=== PATIENT | female | born 1960 | race Caucasian/White ===

== ENCOUNTER 2016-08-11 12:27 | Emergency (ER) | payer BC ==
[2016-08-11] MEDS ORDERED: ONDANSETRON 4 MG/2 ML VIAL IVP STA (12:57)
[2016-08-11] MEDS ORDERED: SODIUM CHLORIDE 0.9% 1,000 ML IV STA (12:57)
[2016-08-11 13:24] LABS: Basophils % (A) 0 %; CH 31.7; Eosinophils % (A) 1 %; HCT 39.8 % (34.0-46.0); Luc % (Auto) 1; Lymphocytes # (A) 2.1 k/uL (1.0-4.8); Lymphocytes % (A) 23 %; MCH 30.6 pg (25.0-35.0); MCHC 32.8 g/dL (31.0-37.0); MCV 93.4 fL (80.0-100.0); Mean Platelet Volume 7.1; Monocytes # (A) 0.4 k/uL (0-1.0); Monocytes % (A) 5 %; Neutrophils # (A) 6.2 k/uL (1.3-7.7); Neutrophils % (A) 70 %; RBC 4.26 m/uL (3.80-5.40); RDW 13.9 % (11.5-15.5); WBC 8.9 k/uL (3.8-10.6); WBC (Perox) 8.69
[2016-08-11 13:33] LABS: ALT 20 U/L (9-52); AST 17 U/L (14-36); Alkaline Phosphatase 65 U/L (38-126); Amylase 48 U/L (30-110); Anion Gap 8 mmol/L; Blood Urea Nitrogen 10 mg/dL (7-17); Carbon Dioxide 24 mmol/L (22-30); Chloride 105 mmol/L (98-107); Glucose 100 mg/dL (74-99); Non-African American GFR(MDRD) >60 (>60 ml/min/1.73 sqM); Sodium 137 mmol/L (137-145); Total Bilirubin 0.6 mg/dL (0.2-1.3); Total Protein 6.6 g/dL (6.3-8.2)
[2016-08-11 13:34] LABS: Appearance,Urine Cloudy (Clear); Bilirubin,Urine Negative (Negative); Glucose,Urine (UA) Negative (Negative); Ketones,Urine 1+ (Negative); Leukocyte Esterase,Urine Large (Negative); Mucus,Urine Moderate /hpf; Nitrite,Urine Negative (Negative); PH, Urine 5.5 (5.0-8.0); Particle Count 10647; Protein,Urine Negative (Negative); Specific Gravity,Urine 1.021 (1.001-1.035); Squamous Epithelial Cell,Urine 8 /hpf (0-4); UA Billing (MACRO vs. MICRO) MICRO; Urobilinogen,Urine <2.0 mg/dL (<2.0); WBC,Urine 9 /hpf (0-5)
--- NOTE | 2016-08-11 13:58 | ED ---
Abdominal Pain HPI - General Chief Complaint: Abdominal Pain Stated Complaint: Abdominal Pain/Vomiting Time Seen by Provider: 08/11/16 12:44 Source: patient, RN notes reviewed Mode of arrival: ambulatory Limitations: no limitations - History of Present Illness Initial Comments: 56-year-old female presents emergency Department chief complaint of abdominal pain. Patient states that she's been having some discomfort lasted 4 days. Patient was seen at yesterday in which she lab work, ultrasound. Patient was told that she had a ruptured ovarian cyst that she had some fluid on pelvic region. Patient states pain is much better today though she had some nausea and vomiting this morning. Patient was sent home with pain medication which she took yesterday nothing today. Patient denies fever, chills , dysuria, hematuria, vaginal bleeding vaginal discharge. Denies any hematemesis, coffee-ground emesis, melena or hematochezia. Patient had no prior abdominal surgeries. - Related Data Home Medications Medication Instructions Recorded Confirmed traMADol HCL [Ultram] 50 mg PO Q4HR PRN 08/11/16 08/11/16 Previous Rx's Medication Instructions Recorded Ondansetron Odt [Zofran Odt] 4 mg PO Q8HR PRN #10 tab 08/11/16 Allergies Allergy/AdvReac Type Severity Reaction Status Date / Time No Known Allergies Allergy Verified 08/11/16 13:08 Review of Systems ROS Statement: Those systems with pertinent positive or pertinent negative responses have been documented in the HPI. ROS Other: All systems not noted in ROS Statement are negative. Past Medical History Past Medical History: No Reported History History of Any Multi-Drug Resistant Organisms: None Reported Past Surgical History: Joint Replacement Additional Past Surgical History / Comment(s): sinus, d and c Past Psychological History: Depression Smoking Status: Current every day smoker Past Alcohol Use History: None Reported Past Drug Use History: None Reported General Exam Limitations: no limitations General appearance: alert, in no apparent distress Head exam: Present: atraumatic, normocephalic, normal inspection Respiratory exam: Present: normal lung sounds bilaterally. Absent: respiratory distress, wheezes, rales, rhonchi, stridor Cardiovascular Exam: Present: regular rate, normal rhythm, normal heart sounds. Absent: systolic murmur, diastolic murmur, rubs, gallop, clicks GI/Abdominal exam: Present: soft, tenderness (Minimal suprapubic tenderness), normal bowel sounds. Absent: distended, guarding, rebound, rigid Back exam: Absent: CVA tenderness (R), CVA tenderness (L) Skin exam: Present: warm, dry, intact, normal color. Absent: rash Course Vital Signs 08/11/16 12:31 Temperature 97.9 F Pulse Rate 62 Respiratory 20 Rate Blood Pressure 112/57 O2 Sat by Pulse 98 Oximetry Medical Decision Making - Medical Decision Making 56-year-old female presents emergency department for nausea vomiting abdominal discomfort. Patient was diagnosed with ruptured ovarian cyst yesterday. Patient was given IV fluids, Zofran she states she feels better. Patient be discharged Zofran. Return parameters were discussed. - Lab Data Result diagrams: 08/11/16 13:10 08/11/16 13:10 Lab Results 08/11/16 08/11/16 08/11/16 Range/Units 13:10 13:10 13:10 WBC 8.9 (3.8-10.6) k/uL RBC 4.26 (3.80-5.40) m/uL Hgb 13.0 (11.4-16.0) gm/dL Hct 39.8 (34.0-46.0) % MCV 93.4 (80.0-100.0) fL MCH 30.6 (25.0-35.0) pg MCHC 32.8 (31.0-37.0) g/dL RDW 13.9 (11.5-15.5) % Plt Count 288 (150-450) k/uL Neutrophils % 70 % Lymphocytes % 23 % Monocytes % 5 % Eosinophils % 1 % Basophils % 0 % Neutrophils # 6.2 (1.3-7.7) k/uL Lymphocytes # 2.1 (1.0-4.8) k/uL Monocytes # 0.4 (0-1.0) k/uL Eosinophils # 0.0 (0-0.7) k/uL Basophils # 0.0 (0-0.2) k/uL Sodium 137 (137-145) mmol/L Potassium 4.0 (3.5-5.1) mmol/L Chloride 105 (98-107) mmol/L Carbon Dioxide 24 (22-30) mmol/L Anion Gap 8 mmol/L BUN 10 (7-17) mg/dL Creatinine 0.63 (0.52-1.04) mg/dL Est GFR (MDRD) Af Amer >60 (>60 ml/min/1.73 sqM) Est GFR (MDRD) Non-Af >60 (>60 ml/min/1.73 sqM) Glucose 100 H (74-99) mg/dL Calcium 9.0 (8.4-10.2) mg/dL Total Bilirubin 0.6 (0.2-1.3) mg/dL AST 17 (14-36) U/L ALT 20 (9-52) U/L Alkaline Phosphatase 65 (38-126) U/L Total Protein 6.6 (6.3-8.2) g/dL Albumin 3.7 (3.5-5.0) g/dL Amylase 48 (30-110) U/L Lipase 27 (23-300) U/L Urine Color Yellow Urine Appearance Cloudy H (Clear) Urine pH 5.5 (5.0-8.0) Ur Specific [place] 1.021 (1.001-1.035) Urine Protein Negative (Negative) Urine Glucose (UA) Negative (Negative) Urine Ketones 1+ H (Negative) Urine Blood Negative (Negative) Urine Nitrate Negative (Negative) Urine Bilirubin Negative (Negative) Urine Urobilinogen <2.0 (<2.0) mg/dL Ur Leukocyte Esterase Large H (Negative) Urine WBC 9 H (0-5) /hpf Ur Squamous Epith Cells 8 H (0-4) /hpf Urine Mucus Moderate H (None) /hpf Disposition Clinical Impression: Abdominal pain Disposition: HOME SELF-CARE Condition: Stable Instructions: Abdominal Pain (ED) Additional Instructions: Please return to the Emergency Department if symptoms worsen or any other concerns. Prescriptions: Ondansetron Odt [Zofran Odt] 4 mg PO Q8HR PRN #10 tab PRN Reason: Nausea Time of Disposition: 13:55
[2016-08-11 14:07] VITALS: BP 124/67; PULSE 95; RESP 16; TEMP 98.3
== END 2016-08-11 14:06 | disposition home or self-care (01) ==
LOC: EC 12:27
DX: R11.2 Nausea with vomiting, unspecified (principal); F17.200 Nicotine dependence, unspecified, uncomplicated
CPT/HCPCS: 36415; 80053; 82150; 83690; 85025; 81001; 99284; 96374; 96361; J2405

== ENCOUNTER 2016-08-17 12:46 | Emergency (ER) | payer BC ==
[2016-08-17] MEDS ORDERED: RX INFO: IV CONTRAST WAS GIVEN 1 EACH MISC MISCELLANE PRN (13:32)
[2016-08-17] MEDS ORDERED: SODIUM CHLORIDE 0.9% 1,000 ML IV STA (13:32)
[2016-08-17] MEDS ORDERED: SODIUM CHLORIDE 0.9% 500 ML IV STA (13:32)
[2016-08-17] MEDS ORDERED: KETOROLAC 30 MG/ML 1 ML VIAL IVP STA (13:32)
[2016-08-17] MEDS ORDERED: ACETAMINOPHEN IV (For NPO) 1,000 MG in EMPTY BAG 1 BAG IVPB STA (13:33)
--- NOTE | 2016-08-17 13:41 | ED ---
General Adult HPI - General Chief complaint: Abdominal Pain Stated complaint: Abd Pain Time Seen by Provider: 08/17/16 13:24 Source: patient, RN notes reviewed, old records reviewed Mode of arrival: ambulatory Limitations: no limitations - History of Present Illness Initial comments: This is a 56-year-old female the ER for evaluation. This patient presents for evaluation of abdominal pain. This is patient's third ER visit in a week for similar abdominal pain. Patient denies medical history she has had ultrasound and lab work with no concurrent her significant diagnosis. Patient denies nausea vomiting no fever. No history of bowel surgery. Pain is been going on for 11 days - Related Data Home Medications Medication Instructions Recorded Confirmed traMADol HCL [Ultram] 50 mg PO Q4HR PRN 08/11/16 08/17/16 Previous Rx's Medication Instructions Recorded Ondansetron Odt [Zofran Odt] 4 mg PO Q8HR PRN #10 tab 08/11/16 Allergies Allergy/AdvReac Type Severity Reaction Status Date / Time No Known Allergies Allergy Verified 08/17/16 13:49 Review of Systems ROS Statement: Those systems with pertinent positive or pertinent negative responses have been documented in the HPI. ROS Other: All systems not noted in ROS Statement are negative. Past Medical History Past Medical History: No Reported History History of Any Multi-Drug Resistant Organisms: None Reported Past Surgical History: Joint Replacement Additional Past Surgical History / Comment(s): sinus, d and c Past Psychological History: Depression Smoking Status: Current every day smoker Past Alcohol Use History: None Reported Past Drug Use History: None Reported General Exam Limitations: no limitations General appearance: alert, in no apparent distress Head exam: Present: atraumatic, normocephalic, normal inspection Eye exam: Present: normal appearance, PERRL, EOMI. Absent: scleral icterus, conjunctival injection, periorbital swelling ENT exam: Present: normal exam, mucous membranes moist Neck exam: Present: normal inspection. Absent: tenderness, meningismus, lymphadenopathy Respiratory exam: Present: normal lung sounds bilaterally. Absent: respiratory distress, wheezes, rales, rhonchi, stridor Cardiovascular Exam: Present: regular rate, normal rhythm, normal heart sounds. Absent: systolic murmur, diastolic murmur, rubs, gallop, clicks GI/Abdominal exam: Present: soft, normal bowel sounds. Absent: distended, tenderness, guarding, rebound, rigid Extremities exam: Present: normal inspection, full ROM, normal capillary refill. Absent: tenderness, pedal edema, joint swelling, calf tenderness Back exam: Present: normal inspection Neurological exam: Present: alert, oriented X3, CN II-XII intact Psychiatric exam: Present: normal affect, normal mood Skin exam: Present: warm, dry, intact, normal color. Absent: rash Course Vital Signs 08/17/16 08/17/16 12:58 14:58 Temperature 98.0 F Pulse Rate 67 68 Respiratory 20 18 Rate Blood Pressure 133/57 108/59 O2 Sat by Pulse 98 99 Oximetry - Reevaluation(s) Reevaluation #1: 08/17/16 15:01 Patient's pain is adequately controlled Medical Decision Making - Medical Decision Making 56 female here with the bowel pain, suprapubic about pain rating around back, prior ultrasounds that showed positive ruptured ovarian cyst, CT shows inflammation the pelvis correlate with prior ultrasound, patient will follow-up with OB,, urine is negative. Patient can be discharged home - Lab Data Result diagrams: 08/17/16 13:50 08/17/16 13:50 Lab Results 08/17/16 08/17/16 08/17/16 Range/Units 13:50 13:50 13:50 WBC 9.7 (3.8-10.6) k/uL RBC 3.94 (3.80-5.40) m/uL Hgb 12.3 (11.4-16.0) gm/dL Hct 36.8 (34.0-46.0) % MCV 93.4 (80.0-100.0) fL MCH 31.2 (25.0-35.0) pg MCHC 33.4 (31.0-37.0) g/dL RDW 13.9 (11.5-15.5) % Plt Count 306 (150-450) k/uL Neutrophils % 63 % Lymphocytes % 27 % Monocytes % 6 % Eosinophils % 1 % Basophils % 1 % Neutrophils # 6.0 (1.3-7.7) k/uL Lymphocytes # 2.6 (1.0-4.8) k/uL Monocytes # 0.6 (0-1.0) k/uL Eosinophils # 0.1 (0-0.7) k/uL Basophils # 0.0 (0-0.2) k/uL Sodium 138 (137-145) mmol/L Potassium 4.0 (3.5-5.1) mmol/L Chloride 103 (98-107) mmol/L Carbon Dioxide 26 (22-30) mmol/L Anion Gap 9 mmol/L BUN 8 (7-17) mg/dL Creatinine 0.60 (0.52-1.04) mg/dL Est GFR (MDRD) Af Amer >60 (>60 ml/min/1.73 sqM) Est GFR (MDRD) Non-Af >60 (>60 ml/min/1.73 sqM) Glucose 77 (74-99) mg/dL Calcium 9.5 (8.4-10.2) mg/dL Total Bilirubin 0.6 (0.2-1.3) mg/dL AST 20 (14-36) U/L ALT 25 (9-52) U/L Alkaline Phosphatase 62 (38-126) U/L Total Protein 7.1 (6.3-8.2) g/dL Albumin 4.1 (3.5-5.0) g/dL Amylase 52 (30-110) U/L Lipase 35 (23-300) U/L Urine Color Colorless Urine Appearance Clear (Clear) Urine pH 5.5 (5.0-8.0) Ur Specific [place] 1.002 (1.001-1.035) Urine Protein Negative (Negative) Urine Glucose (UA) Negative (Negative) Urine Ketones Negative (Negative) Urine Blood Negative (Negative) Urine Nitrate Negative (Negative) Urine Bilirubin Negative (Negative) Urine Urobilinogen <2.0 (<2.0) mg/dL Ur Leukocyte Esterase Small H (Negative) Urine WBC 4 (0-5) /hpf Ur Squamous Epith Cells 1 (0-4) /hpf - Radiology Data Radiology results: report reviewed (CT abdomen and pelvis is negative for acute disease), image reviewed Disposition Clinical Impression: Abdominal pain Disposition: HOME SELF-CARE Condition: Good Instructions: Abdominal Pain (ED) Referrals: Eric Sanchez MD [STAFF PHYSICIAN] - 1-2 days
[2016-08-17 14:21] LABS: Basophils % (A) 1 %; CH 31.7; CHCM 34.1; Eosinophils # (A) 0.1 k/uL (0-0.7); Eosinophils % (A) 1 %; HCT 36.8 % (34.0-46.0); HGB 12.3 gm/dL (11.4-16.0); Luc # (Auto) 0.23; Luc % (Auto) 2; Lymphocytes # (A) 2.6 k/uL (1.0-4.8); Lymphocytes % (A) 27 %; MCH 31.2 pg (25.0-35.0); MCHC 33.4 g/dL (31.0-37.0); MCV 93.4 fL (80.0-100.0); Mean Platelet Volume 7.8; Monocytes # (A) 0.6 k/uL (0-1.0); Monocytes % (A) 6 %; Neutrophils % (A) 63 %; RBC 3.94 m/uL (3.80-5.40); RDW 13.9 % (11.5-15.5); WBC 9.7 k/uL (3.8-10.6); WBC (Perox) 10.02
[2016-08-17 14:41] LABS: ALT 25 U/L (9-52); AST 20 U/L (14-36); Alkaline Phosphatase 62 U/L (38-126); Amylase 52 U/L (30-110); Anion Gap 9 mmol/L; Blood Urea Nitrogen 8 mg/dL (7-17); Calcium 9.5 mg/dL (8.4-10.2); Carbon Dioxide 26 mmol/L (22-30); Chloride 103 mmol/L (98-107); Glucose 77 mg/dL (74-99); Non-African American GFR(MDRD) >60 (>60 ml/min/1.73 sqM); Sodium 138 mmol/L (137-145); Total Bilirubin 0.6 mg/dL (0.2-1.3); Total Protein 7.1 g/dL (6.3-8.2)
[2016-08-17 14:56] LABS: Appearance,Urine Clear (Clear); Bilirubin,Urine Negative (Negative); Glucose,Urine (UA) Negative (Negative); Ketones,Urine Negative (Negative); Leukocyte Esterase,Urine Small (Negative); Nitrite,Urine Negative (Negative); PH, Urine 5.5 (5.0-8.0); Particle Count 1261; Protein,Urine Negative (Negative); Specific Gravity,Urine 1.002 (1.001-1.035); Squamous Epithelial Cell,Urine 1 /hpf (0-4); UA Billing (MACRO vs. MICRO) MICRO; Urobilinogen,Urine <2.0 mg/dL (<2.0); WBC,Urine 4 /hpf (0-5)
--- NOTE | 2016-08-17 15:01 | CT ---
EXAMINATION TYPE: CT abdomen pelvis w con DATE OF EXAM: 08/17/2016 2:47 PM COMPARISON: NONE HISTORY: Patient complains of bilateral lower quadrant pain. Patient has history of recent ruptured ovarian cyst. CT DLP: 510.6 mGycm Automated exposure control for dose reduction was used. CONTRAST: CT scan of the abdomen pelvis is performed with IV Contrast, patient injected with 100 mL of Omnipaqu e 300. FINDINGS- LUNG BASES-groundglass changes posteriorly within the dependent portions of both lung dejesus are comp atible with atelectasis. LIVER/GB- No gross abnormality is appreciated. PANCREAS- No gross abnormality is seen. SPLEEN- No gross abnormality is seen. ADRENALS- No gross abnormality is seen. KIDNEYS/BLADDER- no hydronephrosis nephrolithiasis or renal mass. BOWEL- no bowel dilatation. Normal appendix. There is wall thickening involving the left colon with diverticulosis. Inflammatory changes within the pelvic FAT noted. LYMPH NODES- No greater than 1cm abdominal or pelvic lymph nodes are appreciated. OSSEOUS STRUCTURES- No significant abnormality is seen. OTHER-within the pelvis there is a cystic fluid-filled structure in the left adnexa likely related to ovarian cyst. However, there is inflammatory change within the fat within the pelvis. There is some wall thickening of the left colon. Atherosclerotic changes aorta. No aneurysm. IMPRESSION- 1. Inflammatory changes within the pelvis. 3.3 cm fluid-filled structure in the left adnexa may repre sent ovarian cyst with a small amount of free fluid in the pelvis which could be related to ruptured cyst. Could not exclude a adjacent colitis or diverticulitis. Correlate clinically. As noted above ov annie cyst is favored over abscess but should be correlated clinically. Pelvic inflammatory disease i n the differential. #2 faint mesenteric stranding to be seen with a mesenteritis. Correlate clinicall y to exclude peritonitis.
[2016-08-17] MEDS ORDERED: cefTRIAXone 250 MG VIAL IM STA (15:11)
[2016-08-17 15:36] VITALS: BP 114/58; PULSE 72; RESP 20; TEMP 99.1
== END 2016-08-17 15:56 | disposition home or self-care (01) ==
LOC: EC 12:46
DX: R10.9 Unspecified abdominal pain (principal); N73.9 Female pelvic inflammatory disease, unspecified; F17.200 Nicotine dependence, unspecified, uncomplicated
CPT/HCPCS: 99284 ×2; 96365 ×2; 96375 ×2; 96372 ×2; 36415; 80053; 82150; 83690; 85025; 81001; 87491; 87591; 87086; 74177; J0696; J1885; Q9967; J0131

== ENCOUNTER 2016-10-13 16:57 | Emergency (ER) | payer BC ==
[2016-10-13 18:01] VITALS: RESP 18
[2016-10-13] MEDS ORDERED: SODIUM CHLORIDE 0.9% 1,000 ML IV ONE (19:11)
[2016-10-13] MEDS ORDERED: KETOROLAC 30 MG/ML 1 ML VIAL IVP STA (19:12)
[2016-10-13 19:28] LABS: Basophils % (A) 0 %; CH 31.5; CHCM 33.6; Eosinophils # (A) 0.2 k/uL (0-0.7); Eosinophils % (A) 3 %; HCT 35.9 % (34.0-46.0); HDW 2.16; Luc % (Auto) 2; Lymphocytes # (A) 2.8 k/uL (1.0-4.8); Lymphocytes % (A) 32 %; MCH 31.4 pg (25.0-35.0); MCHC 33.4 g/dL (31.0-37.0); MCV 94.2 fL (80.0-100.0); Mean Platelet Volume 7.1; Monocytes # (A) 0.7 k/uL (0-1.0); Monocytes % (A) 8 %; Neutrophils # (A) 4.8 k/uL (1.3-7.7); Neutrophils % (A) 55 %; RBC 3.81 m/uL (3.80-5.40); RDW 14.4 % (11.5-15.5); WBC 8.8 k/uL (3.8-10.6); WBC (Perox) 8.98
[2016-10-13 19:31] LABS: Amorphous Sediment,Urine Occasional /hpf; Appearance,Urine Clear (Clear); Bacteria,Urine Rare /hpf; Bilirubin,Urine Negative (Negative); Glucose,Urine (UA) Negative (Negative); Ketones,Urine Negative (Negative); Leukocyte Esterase,Urine Moderate (Negative); Nitrite,Urine Negative (Negative); PH, Urine 7.5 (5.0-8.0); Particle Count 1521; Protein,Urine Negative (Negative); RBC,Urine 1 /hpf (0-5); Specific Gravity,Urine 1.005 (1.001-1.035); Squamous Epithelial Cell,Urine 1 /hpf (0-4); UA Billing (MACRO vs. MICRO) MICRO; Urobilinogen,Urine <2.0 mg/dL (<2.0); WBC,Urine 7 /hpf (0-5)
[2016-10-13 19:36] LABS: ALT 25 U/L (9-52); AST 16 U/L (14-36); Alkaline Phosphatase 58 U/L (38-126); Amylase 53 U/L (30-110); Anion Gap 7 mmol/L; Blood Urea Nitrogen 12 mg/dL (7-17); Calcium 9.4 mg/dL (8.4-10.2); Carbon Dioxide 25 mmol/L (22-30); Chloride 108 mmol/L (98-107); Glucose 84 mg/dL (74-99); Non-African American GFR(MDRD) >60 (>60 ml/min/1.73 sqM); Potassium 3.8 mmol/L (3.5-5.1); Sodium 140 mmol/L (137-145); Total Bilirubin 0.3 mg/dL (0.2-1.3); Total Protein 6.8 g/dL (6.3-8.2)
--- NOTE | 2016-10-13 20:32 | US ---
EXAMINATION TYPE: US abdomen limited DATE OF EXAM: 10/13/2016 8:20 PM COMPARISON: CT abdomen and pelvis dated 08/17/2016. CLINICAL HISTORY: Pain. RUQ pain, NPO EXAM MEASUREMENTS: Liver Length: 16.6 cm Gallbladder Wall: 0.2 cm CBD: 0.2 cm Right Kidney: 11.1 x 5.7 x 3.9 cm Pancreas: wnl, main pancreatic duct = 1.4 mm Liver: wnl Gallbladder: fold seen, wnl as visualized Evidence for sonographic Roy's sign: neg CBD: wnl Right Kidney: wnl IMPRESSION: No sonographic evidence of cholecystitis. Unremarkable limited abdominal ultrasound.
--- NOTE | 2016-10-13 20:43 | ED ---
Abdominal Pain HPI - General Chief Complaint: Abdominal Pain Stated Complaint: Abd/Side Pain, SOB Time Seen by Provider: 10/13/16 18:38 Source: patient, RN notes reviewed Mode of arrival: ambulatory Limitations: no limitations - History of Present Illness Initial Comments: Patient is a 56-year-old female presents emergency room for evaluation of abdominal pain. Patient states she began having right upper quadrant pain since Sunday. Patient states the pain has been getting worse throughout the week. Patient states that she had a steak sandwich for lunch. Patient states the pain began to worsen while she was at work, so she decided to come here to be evaluated. Patient states she thinks is her gallbladder. Patient denies any history of cholelithiasis. Patient denies nausea or vomiting. Patient denies chest pain or shortness of breath. Patient denies diarrhea or constipation. Patient denies fevers or chills. Patient denies pain or burning during urination, trouble urinating or blood in urine. Patient denies any history of abdominal surgeries. - Related Data Home Medications Medication Instructions Recorded Confirmed Naproxen Sodium [Naproxen Sodium 550 mg PO Q12H PRN 10/13/16 10/13/16 DS] Previous Rx's Medication Instructions Recorded HYDROcodone/APAP 5-325MG [[place] 1 tab PO Q6HR PRN #12 tab 10/13/16 5-325] Allergies Allergy/AdvReac Type Severity Reaction Status Date / Time No Known Allergies Allergy Verified 10/13/16 18:59 Review of Systems ROS Statement: Those systems with pertinent positive or pertinent negative responses have been documented in the HPI. ROS Other: All systems not noted in ROS Statement are negative. Past Medical History Past Medical History: No Reported History History of Any Multi-Drug Resistant Organisms: None Reported Past Surgical History: Joint Replacement Additional Past Surgical History / Comment(s): sinus, d and c Past Psychological History: Depression Smoking Status: Current every day smoker Past Alcohol Use History: None Reported Past Drug Use History: None Reported General Exam - General Exam Comments Initial Comments: Sitting in exam room, no acute distress. Limitations: no limitations General appearance: alert, in no apparent distress Head exam: Present: atraumatic, normocephalic, normal inspection Eye exam: Present: normal appearance ENT exam: Present: normal exam Neck exam: Present: normal inspection Respiratory exam: Present: normal lung sounds bilaterally. Absent: respiratory distress Cardiovascular Exam: Present: regular rate, normal rhythm, normal heart sounds GI/Abdominal exam: Present: soft, tenderness (Right upper quadrant), normal bowel sounds. Absent: distended, guarding, rebound, rigid Extremities exam: Present: normal inspection Back exam: Present: normal inspection Neurological exam: Present: alert, oriented X3, CN II-XII intact, normal gait Psychiatric exam: Present: normal affect, normal mood Skin exam: Present: warm, dry, intact, normal color. Absent: rash Course Vital Signs 10/13/16 17:59 Temperature 98.1 F Pulse Rate 62 Respiratory 18 Rate Blood Pressure 118/56 O2 Sat by Pulse 98 Oximetry Medical Decision Making - Medical Decision Making Patient is a 56-year-old female presents emergency room for evaluation of abdominal pain. Patient complaining of right upper quadrant pain. Labs within normal limits. Liver enzymes within normal limits. Gallbladder ultrasound shows no acute findings. Advised patient to follow up with primary care provider for possible HIDA scan with CCK for further evaluation. Patient will be sent home with pain medications as needed. Patient states she understands everything else discussed with her. Return parameters discussed. Discussed with Dr. Ortega. - Lab Data Result diagrams: 10/13/16 19:00 10/13/16 19:00 Lab Results 10/13/16 10/13/16 10/13/16 Range/Units 19:00 19:00 19:00 WBC 8.8 (3.8-10.6) k/uL RBC 3.81 (3.80-5.40) m/uL Hgb 12.0 (11.4-16.0) gm/dL Hct 35.9 (34.0-46.0) % MCV 94.2 (80.0-100.0) fL MCH 31.4 (25.0-35.0) pg MCHC 33.4 (31.0-37.0) g/dL RDW 14.4 (11.5-15.5) % Plt Count 269 (150-450) k/uL Neutrophils % 55 % Lymphocytes % 32 % Monocytes % 8 % Eosinophils % 3 % Basophils % 0 % Neutrophils # 4.8 (1.3-7.7) k/uL Lymphocytes # 2.8 (1.0-4.8) k/uL Monocytes # 0.7 (0-1.0) k/uL Eosinophils # 0.2 (0-0.7) k/uL Basophils # 0.0 (0-0.2) k/uL Sodium 140 (137-145) mmol/L Potassium 3.8 (3.5-5.1) mmol/L Chloride 108 H (98-107) mmol/L Carbon Dioxide 25 (22-30) mmol/L Anion Gap 7 mmol/L BUN 12 (7-17) mg/dL Creatinine 0.60 (0.52-1.04) mg/dL Est GFR (MDRD) Af Amer >60 (>60 ml/min/1.73 sqM) Est GFR (MDRD) Non-Af >60 (>60 ml/min/1.73 sqM) Glucose 84 (74-99) mg/dL Calcium 9.4 (8.4-10.2) mg/dL Total Bilirubin 0.3 (0.2-1.3) mg/dL AST 16 (14-36) U/L ALT 25 (9-52) U/L Alkaline Phosphatase 58 (38-126) U/L Total Protein 6.8 (6.3-8.2) g/dL Albumin 3.9 (3.5-5.0) g/dL Amylase 53 (30-110) U/L Lipase 58 (23-300) U/L Urine Color Light Yellow Urine Appearance Clear (Clear) Urine pH 7.5 (5.0-8.0) Ur Specific [place] 1.005 (1.001-1.035) Urine Protein Negative (Negative) Urine Glucose (UA) Negative (Negative) Urine Ketones Negative (Negative) Urine Blood Negative (Negative) Urine Nitrite Negative (Negative) Urine Bilirubin Negative (Negative) Urine Urobilinogen <2.0 (<2.0) mg/dL Ur Leukocyte Esterase Moderate H (Negative) Urine RBC 1 (0-5) /hpf Urine WBC 7 H (0-5) /hpf Ur Squamous Epith Cells 1 (0-4) /hpf Amorphous Sediment Occasional H (None) /hpf Urine Bacteria Rare H (None) /hpf - Radiology Data Radiology results: report reviewed, image reviewed Disposition Clinical Impression: Abdominal pain Disposition: HOME SELF-CARE Instructions: Biliary Colic (ED) Additional Instructions: Take pain medications as needed. Refrain from fatty foods. Please follow up with primary care provider on [place]. May need HIDA scan with CCK for further evaluation. If any new symptom arises or symptoms worsen, return to ER as soon as possible. Prescriptions: HYDROcodone/APAP 5-325MG [[place] 5-325] 1 tab PO Q6HR PRN #12 tab PRN Reason: Pain Referrals: Treasure Whitaker DO [Primary Care Provider] - 1-2 days Time of Disposition: 20:41
[2016-10-13 21:07] VITALS: BP 129/64; PULSE 56; TEMP 97.4
== END 2016-10-13 21:05 | disposition home or self-care (01) ==
LOC: EC 16:57
DX: R10.11 Right upper quadrant pain (principal); F17.200 Nicotine dependence, unspecified, uncomplicated
CPT/HCPCS: 99284; 96374; 96361; 36415; 80053; 82150; 83690; 85025; 81001; 76705; J1885

== ENCOUNTER → 2016-10-20 | Outpatient (CLI) | payer BC ==
--- NOTE | 2016-10-20 08:56 | CT ---
EXAMINATION TYPE: CT abdomen pelvis w con DATE OF EXAM: 10/20/2016 7:41 AM HISTORY: Severe epigastric pain on the Rt, radiating around the back CT DLP: 1035mGycm Automated Exposure Control for Dose Reduction was Utilized. CONTRAST: CT scan of the abdomen and pelvis is performed with IV Contrast, patient injected with 100 mL of Omni paque 300. COMPARISON: 08/17/2016. FINDINGS: LUNG BASES: New right basilar subsegmental atelectasis is seen with density greater than that of the spinal musculature and a wedge-shaped configuration. Similarly a focal area left basilar linear atele ctasis is noted. LIVER/GB: No significant abnormality is appreciated. New perihepatic ascites has developed in the int erim, small in degree. PANCREAS: No significant abnormality is seen. SPLEEN: No significant abnormality is seen. ADRENALS: No significant abnormality is seen. KIDNEYS: No significant abnormality is seen. BOWEL: New perihepatic fluid tracks down the right lateral conal fascia and into the low pelvis. Nota edmundo the contrast-filled appendix is upper limits normal size, being that it is contrast filled, measu ring 9 mm. The turcios of the appendix also appears thickened there is new mesenteric fat stranding pre dominating within the anterior pelvis but extending along the ascending colon. Mild reactive bowel wa ll thickening is seen of the cecum. Lipoma is incidentally noted within the third portion of the duod enum. UTERUS/ADNEXA: The previously seen left adnexal cystic structure has resolved in the interim. LYMPH NODES: No greater than 1cm abdominal or pelvic lymph nodes are appreciated. OSSEOUS STRUCTURES: No significant abnormality is seen. OTHER: No significant additional abnormality is seen. Findings discussed with nurse practitioner Lyubov Emanuel of Dr. Whitaker at 8:26 AM on 10/20/2016. IMPRESSION: 1. Nonspecific new abdominal ascites and progressed mesenteric fat stranding. Findings are equivocal for appendicitis in the patient with severe abdominal pain. Correlate with clinical exam for pinpoint right lower quadrant tenderness. Mesenteric fat stranding has progressed from the prior exam and alt ernatively pelvic inflammatory disease could be considered. Additionally this pelvic stranding can be seen in mucinous neoplasms and therefore pelvic ultrasound is also recommended to evaluate the ovari es.
== END | disposition home or self-care (01) ==
LOC: RADCTMAIN 07:11
PROVIDERS: ATTEND Family Medicine
DX: R18.8 Other ascites (principal); R10.13 Epigastric pain
CPT/HCPCS: 74177; Q9967

== ENCOUNTER → 2016-10-24 | Outpatient (CLI) | payer BC ==
--- NOTE | 2016-10-24 14:53 | NM ---
EXAMINATION TYPE: NM hepatobiliary w EF DATE OF EXAM: 10/24/2016 2:47 PM COMPARISON: NONE HISTORY: Right upper quadrant pain TECHNIQUE: After the intravenous administration of 5.49 mCi Tc 99m Mebrofenin hepatobiliary scintigra phy is performed. Immediate images post injection. FINDINGS: There is satisfactory initial accumulation of tracer by the liver. The gallbladder is visualized wit hin 30 minutes. The small bowel activity is noted within 30 minutes. At one hour 8 ounces of oral e nsure plus is given to mimic CCK and gallbladder ejection fraction is calculated at 74 %, in the norm al range. Therefore there is no scintigraphic evidence of cystic or common bile duct obstruction to suggest acute cholecystitis or gallbladder dyskinesia. IMPRESSION: Exam is within normal limits.
== END | disposition home or self-care (01) ==
LOC: RADNMMAIN 12:39
PROVIDERS: ATTEND Family Medicine
DX: R10.11 Right upper quadrant pain (principal)
CPT/HCPCS: 78226; A9537

== ENCOUNTER → 2016-11-30 | Outpatient (CLI) | payer BC ==
--- NOTE | 2016-11-30 12:30 | US ---
EXAMINATION TYPE: US transvaginal DATE OF EXAM: 11/30/2016 COMPARISON: US and CT CLINICAL HISTORY: R10.11 RUQ Pain , R10.31 RLQ Pain. RLQ pain TECHNIQUE: Transvaginal (TV) Date of LMP: 10 + yrs ago EXAM MEASUREMENTS: Uterus: 5.1 x 2.4 x 3.5 cm Endometrial Stripe: 0.3 cm Right Ovary: 2.5 x 1.4 x 1.7 cm Left Ovary: 2.0 x 1.0 x 1.8 cm 1. Uterus: Retroverted Heterogeneous 2. Endometrium: wnl 3. Right Ovary: wnl 4. Left Ovary: wnl 5. Bilateral Adnexa: Small amount of free fluid left adnexa 6. Posterior cul-de-sac: wnl Results called to [facility] [place] at time of exam IMPRESSION: 1. Uterus is heterogeneous and retroverted. This is a nonspecific finding. Can occasionally be seen w ith diffuse fibroid change. No focal fibroids are seen. Consider MRI follow-up. 2. Small amount of free fluid in the pelvis.
== END | disposition home or self-care (01) ==
LOC: RADUSWWP 11:21
PROVIDERS: ATTEND Obstetrics & Gynecology
DX: N85.4 Malposition of uterus (principal); R10.11 Right upper quadrant pain; R10.31 Right lower quadrant pain
CPT/HCPCS: 76830

== ENCOUNTER 2016-12-21 08:09 | Day surgery (SDC) | payer BC ==
[2016-12-18 09:14] VITALS: BMI 22.7
[~2016-12-21 08:09] MED LIST: LACTATED RINGERS 1,000 ML IV SCH
[2016-12-21 08:43] VITALS: TEMP 98.1
[2016-12-21] MEDS ORDERED: PROPOFOL 10 MG/ML 20 ML VIAL IV ONE (08:50)
[2016-12-21 09:19] VITALS: RESP 18
--- NOTE | 2016-12-21 09:24 | P.PCN ---
Date of Procedure: 12/21/16 Preoperative Diagnosis: Postoperative Diagnosis: Procedure(s) Performed: Procedure: Total colonoscopy and polypectomy. Preoperative diagnosis: Abdominal pain. Postoperative diagnosis: 1. Cecal polyp removed with the snare piecemeal. 2. Exam of the colon and terminal ileum, otherwise, within normal limits. Preparation: HalfLytely prep. Sedation: Was provided by anesthesia. Brief clinical history: The patient is a 56-year-old female who I have evaluated in the office for unexplained abdominal pain of around 3 months duration. The pain was more diffuse initially and then localized to the right lower quadrant. No change in bowel habits or bleeding. No FH of colon cancer. The patient had a colonoscopy years back but none recently and that is why I scheduled this evaluation to assess for neoplasia or other pathology. Procedure: With the patient on her left lateral decubitus position and after informed consent and adequate sedation, the perianal area was inspected and it did not show any fissures or fistulas. There were no masses felt on digital rectal examination. The Olympus CFQ 160L colonoscope was then inserted in the rectum in the usual fashion and advanced to the cecum. I intubated the ileocecal valve and examined the terminal ileum. There was a medium-size benign -appearing flat polyp in the cecum which I removed with the snare piecemeal, otherwise, exam of the terminal ileum and colon appeared normal. I retroflexed the endoscope in the rectum before the endoscope was withdrawn. The patient tolerated the procedure well. Plan: The patient was reassured. Will await pathology results. I anticipate repeating this evaluation in 2-3 years depending on the pathology results. Further workup of her abdominal pain will be pursued based on her course. I will keep you updated on her progress. She will follow-up with you as planned. Implants: Indications for Procedure: Operative Findings: Description of Procedure:
[2016-12-21 10:03] VITALS: BP 129/71; PULSE 55
== END 2016-12-21 10:18 | disposition home or self-care (01) ==
LOC: ORWHC2ENDO 08:09
DX: D12.0 Benign neoplasm of cecum (principal); R10.9 Unspecified abdominal pain
CPT/HCPCS: 45385; J2704; 88305

== ENCOUNTER 2017-04-10 11:28 | Emergency (ER) | payer BC ==
[2017-04-10 11:40] VITALS: RESP 18
[2017-04-10] MEDS ORDERED: ONDANSETRON 4 MG/2 ML VIAL IVP STA (12:10)
[2017-04-10] MEDS ORDERED: SODIUM CHLORIDE 0.9% 1,000 ML IV STA (12:10)
--- NOTE | 2017-04-10 12:34 | ED ---
General Adult HPI - General Chief complaint: Nausea/Vomiting/Diarrhea Stated complaint: vomiting Time Seen by Provider: 04/10/17 11:35 Source: patient, RN notes reviewed Mode of arrival: ambulatory Limitations: no limitations - History of Present Illness Initial comments: This is a 56-year-old female who presents emergency Department complaining of vomiting since last night at 11:00. Patient states she continues to vomit today. Patient denies any diarrhea. Patient denies any fever chills. Patient denies any abdominal surgeries. She states she has a little bit of abdominal pain that is diffuse. Patient denies any chest pain difficulty breathing or shortness of breath. - Related Data Previous Rx's Medication Instructions Recorded Ondansetron [Zofran] 4 mg PO Q8HR PRN #20 tab 04/10/17 Allergies Allergy/AdvReac Type Severity Reaction Status Date / Time No Known Allergies Allergy Verified 04/10/17 11:46 Review of Systems ROS Statement: Those systems with pertinent positive or pertinent negative responses have been documented in the HPI. ROS Other: All systems not noted in ROS Statement are negative. Past Medical History Past Medical History: No Reported History History of Any Multi-Drug Resistant Organisms: None Reported Past Surgical History: Orthopedic Surgery Additional Past Surgical History / Comment(s): sinus, d and c; knee scopes Past Anesthesia/Blood Transfusion Reactions: No Reported Reaction Past Psychological History: Depression Smoking Status: Current every day smoker Past Alcohol Use History: None Reported Past Drug Use History: None Reported - Past Family History Mother Family Medical History: No Reported History General Exam - General Exam Comments Initial Comments: GENERAL: Patient is well-developed and well-nourished. Patient is nontoxic and well- hydrated and is in mild distress. ENT: Neck is soft and supple. No significant lymphadenopathy is noted. Oropharynx is clear. Moist mucous membranes. Neck has full range of motion without eliciting any pain. EYES: The sclera were anicteric and conjunctiva were pink and moist. Extraocular movements were intact and pupils were equal round and reactive to light. Eyelids were unremarkable. PULMONARY: Unlabored respirations. Good breath sounds bilaterally. No audible rales rhonchi or wheezing was noted. CARDIOVASCULAR: There is a regular rate and rhythm without any murmurs gallops or rubs. ABDOMEN: Soft and nontender with normal bowel sounds. No palpable organomegaly was noted. There is no palpable pulsatile mass. SKIN: Skin is clear with no lesions or rashes and otherwise unremarkable. NEUROLOGIC: Patient is alert and oriented x3. Cranial nerves II through XII are grossly intact. Motor and sensory are also intact. Normal speech, volume and content. Symmetrical smile. MUSCULOSKELETAL: Normal extremities with adequate strength and full range of motion. LYMPHATICS: No significant lymphadenopathy is noted PSYCHIATRIC: Normal psychiatric evaluation. Limitations: no limitations Course Vital Signs 04/10/17 11:37 Temperature 97.2 F L Pulse Rate 76 Respiratory 18 Rate Blood Pressure 125/67 O2 Sat by Pulse 98 Oximetry Medical Decision Making - Lab Data Result diagrams: 04/10/17 12:23 04/10/17 12:23 Lab Results 04/10/17 04/10/17 Range/Units 12:23 12:23 WBC 9.2 (3.8-10.6) k/uL RBC 4.30 (3.80-5.40) m/uL Hgb 13.2 (11.4-16.0) gm/dL Hct 40.9 (34.0-46.0) % MCV 94.9 (80.0-100.0) fL MCH 30.7 (25.0-35.0) pg MCHC 32.3 (31.0-37.0) g/dL RDW 13.7 (11.5-15.5) % Plt Count 344 (150-450) k/uL Neutrophils % 73 % Lymphocytes % 15 % Monocytes % 9 % Eosinophils % 2 % Basophils % 0 % Neutrophils # 6.7 (1.3-7.7) k/uL Lymphocytes # 1.4 (1.0-4.8) k/uL Monocytes # 0.8 (0-1.0) k/uL Eosinophils # 0.2 (0-0.7) k/uL Basophils # 0.0 (0-0.2) k/uL Sodium 138 (137-145) mmol/L Potassium 4.6 (3.5-5.1) mmol/L Chloride 103 (98-107) mmol/L Carbon Dioxide 26 (22-30) mmol/L Anion Gap 9 mmol/L BUN 12 (7-17) mg/dL Creatinine 0.62 (0.52-1.04) mg/dL Est GFR (MDRD) Af Amer >60 (>60 ml/min/1.73 sqM) Est GFR (MDRD) Non-Af >60 (>60 ml/min/1.73 sqM) Glucose 95 (74-99) mg/dL Calcium 9.4 (8.4-10.2) mg/dL Total Bilirubin 0.3 (0.2-1.3) mg/dL AST 27 (14-36) U/L ALT 30 (9-52) U/L Alkaline Phosphatase 66 (38-126) U/L Total Protein 6.8 (6.3-8.2) g/dL Albumin 3.8 (3.5-5.0) g/dL Amylase 40 (30-110) U/L Lipase 100 (23-300) U/L Disposition Clinical Impression: Acute vomiting Disposition: HOME SELF-CARE Condition: Good Instructions: Acute Nausea and Vomiting (ED) Prescriptions: Ondansetron [Zofran] 4 mg PO Q8HR PRN #20 tab PRN Reason: Nausea And Vomiting Referrals: Treasure Whitaker DO [Primary Care Provider] - 1-2 days Time of Disposition: 12:58
[2017-04-10 12:37] LABS: Basophils % (A) 0 %; CH 31.5; CHCM 33.4; Eosinophils # (A) 0.2 k/uL (0-0.7); Eosinophils % (A) 2 %; HCT 40.9 % (34.0-46.0); HDW 2.12; HGB 13.2 gm/dL (11.4-16.0); Luc # (Auto) 0.13; Luc % (Auto) 1; Lymphocytes # (A) 1.4 k/uL (1.0-4.8); Lymphocytes % (A) 15 %; MCH 30.7 pg (25.0-35.0); MCHC 32.3 g/dL (31.0-37.0); MCV 94.9 fL (80.0-100.0); Mean Platelet Volume 6.9; Monocytes # (A) 0.8 k/uL (0-1.0); Monocytes % (A) 9 %; Neutrophils # (A) 6.7 k/uL (1.3-7.7); Neutrophils % (A) 73 %; RDW 13.7 % (11.5-15.5); WBC 9.2 k/uL (3.8-10.6); WBC (Perox) 8.81
[2017-04-10 12:44] LABS: ALT 30 U/L (9-52); AST 27 U/L (14-36); Alkaline Phosphatase 66 U/L (38-126); Amylase 40 U/L (30-110); Anion Gap 9 mmol/L; Blood Urea Nitrogen 12 mg/dL (7-17); Calcium 9.4 mg/dL (8.4-10.2); Carbon Dioxide 26 mmol/L (22-30); Chloride 103 mmol/L (98-107); Glucose 95 mg/dL (74-99); Non-African American GFR(MDRD) >60 (>60 ml/min/1.73 sqM); Potassium 4.6 mmol/L (3.5-5.1); Sodium 138 mmol/L (137-145); Total Bilirubin 0.3 mg/dL (0.2-1.3); Total Protein 6.8 g/dL (6.3-8.2)
[2017-04-10 13:18] VITALS: BP 113/65; PULSE 66; TEMP 97.7
== END 2017-04-10 13:18 | disposition home or self-care (01) ==
LOC: EC 11:28
DX: R11.10 Vomiting, unspecified (principal); R10.9 Unspecified abdominal pain; F17.200 Nicotine dependence, unspecified, uncomplicated
CPT/HCPCS: 36415; 80053; 82150; 83690; 85025; 99284; 96374; 96361; J2405

== ENCOUNTER → 2017-05-03 | Outpatient (CLI) | payer BC ==
--- NOTE | 2017-05-03 09:58 | CT ---
EXAMINATION TYPE: CT abdomen w con DATE OF EXAM: 05/03/2017 COMPARISON: 10/20/2016 INDICATION: Generalized abdominal pain DLP: 730 mGycm, Automated exposure control for dose reduction was used. CONTRAST: 100 ml mL of Omnipaque 300. Study performed with Oral Contrast TECHNIQUE: Axial images were obtained from above the diaphragm to the pubic rami in the axial plane a t 5 mm thick sections. Reconstructed images are reviewed on the computer in the coronal plane. FINDINGS: Limited CT sections are obtained the lung bases. The lung bases are clear. CT ABDOMEN: Liver: Liver has a normal density without discrete masses or cysts. There is an extrahepatic low-dens ity collection measuring 10 Hounsfield units lateral to the right lobe of the liver upper portion. Th is is displacing the liver medially. A large loculated ascites could be considered. Other cystlike fo rmations can be considered. There is some ascites adjacent to the capsule of the right lobe liver ext ending into the right paracolic gutter. Of this finding is new from October 2016. Spleen: Normal. Small amount of ascites is adjacent. Pancreas: Normal Adrenal glands: The adrenal glands are normal. Gallbladder: Normal Kidneys: No masses are evident. No hydronephrosis is present. No cysts are present. Delayed images were obtained through the kidneys, which remain unremarkable. Aorta: Vascular calcification is within the aorta. Inferior vena cava: Normal. Loops of bowel with contrast within the abdomen appear unremarkable. Fecal debris is within the trans verse colon. IMPRESSIONS: 1. Ascites. 2. Some loculated ascites may have extra-hepatic impression on the superior right lobe of the liver. Other etiologies of cystlike structures with fluid density could be considered.
== END | disposition home or self-care (01) ==
LOC: RADCTMAIN 07:02
PROVIDERS: ATTEND Family Medicine
DX: R18.8 Other ascites (principal); R11.2 Nausea with vomiting, unspecified; R94.5 Abnormal results of liver function studies
CPT/HCPCS: 74160; Q9967

== ENCOUNTER 2017-06-15 11:47 | Emergency (ER) | payer BC ==
[2017-06-15 12:11] VITALS: BP 103/56; PULSE 71; RESP 18; TEMP 99.2
--- NOTE | 2017-06-15 12:31 | ED ---
Extremity Problem HPI - General Chief complaint: Extremity Problem,Nontraumatic Stated complaint: Swollen Knee Time Seen by Provider: 06/15/17 12:15 Source: patient Mode of arrival: wheelchair Limitations: no limitations - History of Present Illness Initial comments: 56-year-old female patient presents to the emergency department today for complaints of left knee swelling and pain. Patient states that symptoms started approximately 8-9 days ago. She states that she was inpatient at this facility at the time when the swelling began. States that she began having a lot of pain to the posterior knee. She states that it perform an ultrasound of the leg and ruled out DVT. She states the swelling did improve however over the last couple of days it has been back. She states that the knee seems to be getting bigger. She states that the pain again is located in the posterior knee and radiates down into the calf some. Patient denies any redness or warmth to the knee. She denies any injury. She denies any history of similar symptoms prior to onset 9 days ago. She has had two surgeries to the knee and diagnosis of cellulitis at one point. Patient denies any recent rash, fever, chills, shortness breath, chest pain, abdominal pain, nausea, vomiting, diarrhea , constipation, back pain, numbness, tingling, dizziness, weakness, hematuria, dysuria, urinary urgency, urinary frequency, headache, visual changes, or any other complaints. Patient was admitted with bowel obstruction and had new diagnosis of ovarian cancer on 06/02/2017. - Related Data Home Medications Medication Instructions Recorded Confirmed Omeprazole 20 mg PO DAILY 05/22/17 06/02/17 Previous Rx's Medication Instructions Recorded Docusate [Colace] 100 mg PO BID #60 cap 06/11/17 Hydrocodone/Acetaminophen [[place] 1 tab PO Q6H PRN #30 tablet 06/11/17 10-325] Polyethylene Glycol 3350 [Miralax] 17 gm PO DAILY PRN #15 powd.pack 06/11/17 Sennosides [Senna] 8.6 mg PO DAILY PRN #30 tablet 06/11/17 Ibuprofen [Motrin] 600 mg PO Q8HR PRN #30 tab 06/15/17 Allergies Allergy/AdvReac Type Severity Reaction Status Date / Time No Known Allergies Allergy Verified 06/15/17 12:11 Review of Systems ROS Statement: Those systems with pertinent positive or pertinent negative responses have been documented in the HPI. ROS Other: All systems not noted in ROS Statement are negative. Past Medical History Past Medical History: Cancer Additional Past Medical History / Comment(s): ovarian CA History of Any Multi-Drug Resistant Organisms: None Reported Past Surgical History: Orthopedic Surgery Additional Past Surgical History / Comment(s): sinus, d and c; knee scopes Past Anesthesia/Blood Transfusion Reactions: No Reported Reaction Past Psychological History: Depression Smoking Status: Current every day smoker Past Alcohol Use History: None Reported Past Drug Use History: None Reported - Past Family History Mother Family Medical History: Cancer Father Family Medical History: Cancer General Exam Limitations: no limitations General appearance: alert, in no apparent distress, other (This is a well- developed, well-nourished adult female patient in no acute distress. Vital signs upon presentation were temperature 99.2F, pulse 71, respirations 18, blood pressure 103/56, pulse ox 99% on room air.) Eye exam: Present: normal appearance, PERRL, EOMI. Absent: scleral icterus, conjunctival injection, periorbital swelling Respiratory exam: Present: normal lung sounds bilaterally. Absent: respiratory distress, wheezes, rales, rhonchi, stridor Cardiovascular Exam: Present: regular rate, normal rhythm, normal heart sounds. Absent: systolic murmur, diastolic murmur, rubs, gallop, clicks Extremities exam: Present: full ROM, normal capillary refill, joint swelling ( Left knee swelling, especially to the superior anteromedial aspect), other ( Skin to the left lower extremity is pink, warm, and dry. Cap refills less than 3 seconds. Pedal and posttibial pulses are 2+ and equal bilaterally. There is no evidence of erythema, temperature is equal to the right leg.). Absent: tenderness, pedal edema, calf tenderness Neurological exam: Present: alert, oriented X3, CN II-XII intact Psychiatric exam: Present: normal affect, normal mood Skin exam: Present: warm, dry, intact, normal color. Absent: rash Course Vital Signs 06/15/17 12:07 Temperature 99.2 F Pulse Rate 71 Respiratory 18 Rate Blood Pressure 103/56 O2 Sat by Pulse 99 Oximetry Medical Decision Making - Medical Decision Making 56 year-old female patient presented to the emergency department today for evaluation of left knee swelling and pain. Physical examination did reveal some soft tissue swelling surrounding the left knee especially to the left lateral aspect. Patient did have full range of motion. Patient was not overly tender over the knee. X-ray was obtained and showed a small suprapatellar joint effusion but no acute fracture or dislocation. Patient was informed of results. She was requesting draining of the knee however with the small joint effusion I informed her that we would not be able to do this. I did instruct her to follow-up with orthopedics. I did attempt to call for an appointment for her however she requires a referral from her primary care physician. Patient has been informed of this. She will be given an Godfrey wrap for compression and support. She is instructed to rest and elevate the knee. She is instructed to return here immediately for any new, worsening, or concerning symptoms. She verbalizes understanding and agrees with this plan. - Radiology Data Radiology results: report reviewed, image reviewed 3 views of left knee are obtained and showed no acute fracture dislocation evident. The tricompartmental joint spaces appear within normal limits. The overlying soft tissue appears unremarkable. Chondral calcinosis is seen within the medial and lateral compartments. Small suprapatellar joint effusion is also incidentally noted. Impression by Dr. Robles shows no acute fracture dislocation the left knee. Bicompartmental chondrocalcinosis which can be seen in the CPPD or other arthropathy. Small suprapatellar joint effusion. Disposition Clinical Impression: Swelling of left knee joint, Effusion of left knee joint Disposition: HOME SELF-CARE Condition: Good Instructions: Swollen Knee Joint (ED) Additional Instructions: Rest and elevate the left knee. Leave Godfrey wrap on for compression and support. The take off Godfrey wrap at night while sleeping. Take ibuprofen as needed for pain control. Call your primary care physician for referral to orthopedics. Return here immediately for any new, worsening, or concerning symptoms. Prescriptions: Ibuprofen [Motrin] 600 mg PO Q8HR PRN #30 tab PRN Reason: Pain Referrals: Treasure Whitaker DO [Primary Care Provider] - 1-2 days Devin Araiza DO [Doctor of Osteopathic Medicine] - 1-2 days Time of Disposition: 13:13
--- NOTE | 2017-06-15 12:56 | XR ---
EXAMINATION TYPE: XR knee complete LT DATE OF EXAM: 06/15/2017 CLINICAL HISTORY: Left knee pain and swelling TECHNIQUE: Three views of the left knee are obtained. COMPARISON: None. FINDINGS: There is no acute fracture/dislocation evident in left knee. The tri-compartment joint sp aces appear within normal limits. The overlying soft tissue appears unremarkable. Chondrocalcinosis is seen within the medial and lateral compartments. Small suprapatellar joint effusion is also incide ntally noted. IMPRESSION: 1. There is no acute fracture or dislocation in the left knee. 2. Bicompartmental chondrocalcinosis which can be seen in CPPD or other arthropathy. 3. Small suprapatellar joint effusion.
== END 2017-06-15 13:29 | disposition home or self-care (01) ==
LOC: EC 11:47
DX: M25.462 Effusion, left knee (principal); M11.262 Other chondrocalcinosis, left knee; F17.200 Nicotine dependence, unspecified, uncomplicated; Z79.899 Other long term (current) drug therapy; Z87.19 Personal history of other diseases of the digestive system; Z98.890 Other specified postprocedural states
CPT/HCPCS: 99283

== ENCOUNTER → 2017-07-09 | Outpatient (CLI) | payer BC ==
[2017-07-09 15:17] LABS: Basophils # (A) 0.1 k/uL (0-0.2); Basophils % (A) 1 %; Eosinophils # (A) 0.5 k/uL (0-0.7); Eosinophils % (A) 5 %; HCT 30.7 % (34.0-46.0); Hypochromasia Moderate; Lymphocytes # (A) 1.9 k/uL (1.0-4.8); Lymphocytes % (A) 19 %; MCH 29.5 pg (25.0-35.0); MCV 95.1 fL (80.0-100.0); Mean Platelet Volume 6.7; Monocytes % (A) 10 %; Neutrophils # (A) 6.3 k/uL (1.3-7.7); Neutrophils % (A) 63 %; RBC 3.23 m/uL (3.80-5.40); WBC 9.9 k/uL (3.8-10.6)
[2017-07-09 15:21] LABS: HGB 9.5 gm/dL (11.4-16.0)
[2017-07-09 15:29] LABS: ALT 40 U/L (9-52); AST 19 U/L (14-36); Albumin 3.2 g/dL (3.5-5.0); Alkaline Phosphatase 84 U/L (38-126); Anion Gap 8 mmol/L; Blood Urea Nitrogen 14 mg/dL (7-17); Calcium 9.4 mg/dL (8.4-10.2); Carbon Dioxide 31 mmol/L (22-30); Chloride 99 mmol/L (98-107); Glucose 115 mg/dL (74-99); Potassium 5.4 mmol/L (3.5-5.1); Sodium 138 mmol/L (137-145); Total Bilirubin 0.2 mg/dL (0.2-1.3); Total Protein 6.4 g/dL (6.3-8.2)
[2017-07-09 15:36] LABS: Platelet Count 1157 k/uL (150-450)
== END | disposition home or self-care (01) ==
LOC: LABWHC1 15:03
PROVIDERS: ATTEND Obstetrics & Gynecology
DX: C56.9 Malignant neoplasm of unspecified ovary (principal)
CPT/HCPCS: 36415; 80053; 83735; 85025

== ENCOUNTER 2017-12-29 21:43 | Emergency (ER) | payer BC ==
[2017-12-29 21:54] VITALS: BP 120/74
[2017-12-29] MEDS ORDERED: CLINDAMYCIN 150 MG CAP PO STA (22:41)
--- NOTE | 2017-12-29 22:55 | ED ---
General Adult HPI - General Chief complaint: Skin/Abscess/Foreign Body Stated complaint: Incision infection Time Seen by Provider: 12/29/17 22:05 Source: patient, RN notes reviewed, old records reviewed Mode of arrival: ambulatory Limitations: no limitations - History of Present Illness Initial comments: Chief complaint and history of present illness this is a 57-year-old female here with a complaint of painful swelling at the site of where she had a port removed. The patient has a history of ovarian cancer. She had a port placed in the lower left abdomen but it was nonfunctioning so the patient had chemotherapy through her right arm. Patient reports that 5 days ago she went down to [facility] and had a port removed. Since that time was developed significantly localized swelling redness and tenderness. - Related Data Home Medications Medication Instructions Recorded Confirmed Omeprazole 20 mg PO DAILY 05/22/17 12/14/17 Ondansetron HCl [Zofran] 4 mg PO DAILY 08/08/17 12/14/17 Prochlorperazine [Compazine] 5 mg PO Q8HR 08/08/17 12/14/17 Previous Rx's Medication Instructions Recorded Docusate [Colace] 100 mg PO BID #60 cap 06/11/17 Hydrocodone/Acetaminophen [[place] 1 tab PO Q6H PRN #30 tablet 06/11/17 10-325] Polyethylene Glycol 3350 [Miralax] 17 gm PO DAILY PRN #15 powd.pack 06/11/17 Sennosides [Senna] 8.6 mg PO DAILY PRN #30 tablet 06/11/17 Ibuprofen [Motrin] 600 mg PO Q8HR PRN #30 tab 06/15/17 Clindamycin [Cleocin] 450 mg PO TID #21 capsule 12/29/17 Allergies Allergy/AdvReac Type Severity Reaction Status Date / Time No Known Allergies Allergy Verified 12/29/17 21:54 Review of Systems ROS Statement: Those systems with pertinent positive or pertinent negative responses have been documented in the HPI. review of systems; no other complaints other than developing abscess where she had her port removed 5 days ago. Patient was diagnosed with ovarian cancer this past . She had extensive surgery followed by chemotherapy. 5 days ago she had a port removed from her lower abdomen has subsequently become infected. It's hot red and painful. The patient refuses it to be opened and drained. She just wants an antibiotic and that she'll go to [facility]. Patient was advised to go tomorrow if not this evening. If she changes her mind, return this emergency room so we can do an incision and drainage of this abscess. Patient denies fever or chills. patient denies any other medical problems. Her surgeries include cholecystectomy hysterectomy appendectomy just this past May when she had a cancer removed. Patient has had both knees scraped. Family history significant for mother father of lung cancer. Patient denies any ALLERGIES. She does smoke strongly encouraged to stop denies alcohol use. ROS Other: All systems not noted in ROS Statement are negative. Past Medical History Past Medical History: Cancer Additional Past Medical History / Comment(s): ovarian CA History of Any Multi-Drug Resistant Organisms: None Reported Past Surgical History: Cholecystectomy, Hysterectomy, Orthopedic Surgery Additional Past Surgical History / Comment(s): sinus, d and c; knee scopes, spleenectomy, bowel resection Past Anesthesia/Blood Transfusion Reactions: No Reported Reaction Past Psychological History: Depression Smoking Status: Current every day smoker Past Alcohol Use History: None Reported Past Drug Use History: None Reported - Past Family History Mother Family Medical History: Cancer Father Family Medical History: Cancer General Exam - General Exam Comments Initial Comments: physical examination; pertinent to the patient's visit. Vital signs shows temperature 98.7 pulse 83 respiratory rate 18 pulse ox on percent room air blood pressure 120/74. Patient denies any chest pain or shortness of breath. Denies any difficulty urinating or bowel movements. Patient denies any flank pain no chills .Examination of the abdomen shows an incision approximately 4 cm long just over the left lower quadrant. The area is hot and red and very tender. Strongly appears to be an abscess formed with the patient had a port removed just 5 days ago. Patient reports that it was not hot not red not swollen up until yesterday. The patient refuses to allow incision and drainage though was fully explained to her that this is was necessary. Patient just wants to be started on antibiotics and she will then go to [facility] . patient denies ever having had any MRSA type infections. Patient denies any other problems and has no ALLERGIES. She will this time be started on clindamycin 400 mg 3 times a day. Advised return to this emergency room for incision and drainage if she was unable to have anything done a [place], either tonight or tomorrow. the patient will be given a prescription for clindamycin. Also advised to apply warm compresses in hopes that it will drain spontaneously. Limitations: no limitations Course Vital Signs 12/29/17 21:50 Temperature 98.7 F Pulse Rate 83 Respiratory 18 Rate Blood Pressure 120/74 O2 Sat by Pulse 100 Oximetry Medical Decision Making - Medical Decision Making medical decision making; this is a 57-year-old female who developed an abscess at the site of having had a port removed it was nonfunctional for chemotherapy, patient has a history of Ovarian Cancer since [place]. She had the port removed at [facility] days ago. Since then she hasdeveloped pain, redness and heat. Not draining. Patient was advised this needs to be incised and drained. Patient refuses to allow it to happen here. Wants to go down to her [facility]. The patient was started on antibiotics. Advised to go to [facility] to have done properly. Disposition Clinical Impression: Abdominal wall abscess at site of surgical wound Disposition: HOME SELF-CARE Condition: Stable Instructions: Abscess Incision and Drainage (ED), Abscess (ED), Warm Compress or Soak (ED) Additional Instructions: Follow-up with [facility] or as soon as he can. Take clindamycin 450 mg 3 times daily. Continue with home pain medications. If he change of mind return to the emergency room for incision and drainage of the abscess. Prescriptions: Clindamycin [Cleocin] 450 mg PO TID #21 capsule Is patient prescribed a controlled substance at d/c from ED?: No Referrals: Treasure Whitaker DO [Primary Care Provider] - 1-2 days Time of Disposition: 23:00
[2017-12-29 23:11] VITALS: PULSE 67; RESP 117; TEMP 97.9
== END 2017-12-29 23:07 | disposition home or self-care (01) ==
LOC: EC 21:43
DX: L76.82 Other postprocedural complications of skin and subcutaneous tissue (principal); L02.211 Cutaneous abscess of abdominal wall; F32.9 Major depressive disorder, single episode, unspecified; F17.200 Nicotine dependence, unspecified, uncomplicated; Z85.43 Personal history of malignant neoplasm of ovary; Z79.899 Other long term (current) drug therapy
CPT/HCPCS: 99283

== ENCOUNTER 2018-06-17 15:03 | Emergency (ER) | payer BC ==
[2018-06-17 15:19] VITALS: BP 105/59; PULSE 73; RESP 20; TEMP 98.5
--- NOTE | 2018-06-17 17:41 | XR ---
EXAMINATION TYPE: XR knee complete LT DATE OF EXAM: 06/17/2018 COMPARISON: NONE HISTORY: 57-year-old female with pain and swelling TECHNIQUE: 3 views FINDINGS: Moderate joint effusion. Medial and patellofemoral compartmental degenerative spurring. Meniscal juan drocalcinosis is noted. IMPRESSION: Meniscal chondrocalcinosis and moderate knee joint effusion. Joint effusion is nonspecific, possible underlying CPPD. Mild degenerative spurring medial and patellofemoral compartments. No acute osseous abnormality seen.
[2018-06-17] MEDS ORDERED: KETOROLAC 60 MG/2 ML VIAL IM STA (19:02)
--- NOTE | 2018-06-17 19:49 | ED ---
General Adult HPI - General Chief complaint: Extremity Problem,Nontraumatic Stated complaint: left knee swelling Source: patient, RN notes reviewed, old records reviewed Mode of arrival: ambulatory Limitations: no limitations - History of Present Illness Initial comments: 57-year-old female patient past medical history of ovarian cancer, L meniscus injury, presents in ED with 4 days of left knee pain. Patient states that for the last 4 days she has had pain in her left knee and swelling. Patient denies any recent falls or trauma. Patient states that she had something similar to this before in 2009 and she was diagnosed with synovitis. Patient is ambulatory. Patient denies any other symptoms. Patient denies fever chills, nausea vomiting diarrhea, chest pain, shortness of breath, abdominal pain, dysuria. Systemic: Pt denies fatigue, myalgia, fever/chills, rash. Pt denies weakness, night sweats, weight loss. Neuro: Pt denies headache, visual disturbances, syncope or pre-syncope. HEENT: Pt denies ocular discharge or irritation, otalgia, rhinorrhea, pharyngitis or notable lymphadenopathy. Cardiopulmonary: Pt denies chest pain, SOB, heart palpitations, dyspnea on exertion. Abdominal/GI: Pt denies abdominal pain, n/v/d. : Pt denies dysuria, burning w/ urination, frequency/urgency. Denies new onset urinary or bowel incontinence. MSK: Pt denies loss of strength or function in extremities. Neuro: Pt denies new onset weakness, paresthesias. - Related Data Home Medications Medication Instructions Recorded Confirmed Omeprazole 20 mg PO DAILY 05/22/17 12/14/17 Ondansetron HCl [Zofran] 4 mg PO DAILY 08/08/17 12/14/17 Prochlorperazine [Compazine] 5 mg PO Q8HR 08/08/17 12/14/17 Previous Rx's Medication Instructions Recorded Docusate [Colace] 100 mg PO BID #60 cap 06/11/17 Hydrocodone/Acetaminophen [Hiram 1 tab PO Q6H PRN #30 tablet 06/11/17 10-325] Polyethylene Glycol 3350 [Miralax] 17 gm PO DAILY PRN #15 powd.pack 06/11/17 Sennosides [Senna] 8.6 mg PO DAILY PRN #30 tablet 06/11/17 Ibuprofen [Motrin] 600 mg PO Q8HR PRN #30 tab 06/15/17 Clindamycin [Cleocin] 450 mg PO TID #21 capsule 12/29/17 Ibuprofen [Motrin] 600 mg PO Q6HR PRN #40 day 06/17/18 Allergies Allergy/AdvReac Type Severity Reaction Status Date / Time No Known Allergies Allergy Verified 06/17/18 15:19 Review of Systems ROS Statement: Those systems with pertinent positive or pertinent negative responses have been documented in the HPI. ROS Other: All systems not noted in ROS Statement are negative. Past Medical History Past Medical History: Cancer Additional Past Medical History / Comment(s): ovarian CA History of Any Multi-Drug Resistant Organisms: None Reported Past Surgical History: Bowel Resection, Cholecystectomy, Hysterectomy, Orthopedic Surgery Additional Past Surgical History / Comment(s): sinus, d and c; knee scopes, spleenectomy, bowel resection Past Anesthesia/Blood Transfusion Reactions: No Reported Reaction Past Psychological History: Depression Smoking Status: Current every day smoker Past Alcohol Use History: None Reported Past Drug Use History: None Reported - Past Family History Mother Family Medical History: Cancer Father Family Medical History: Cancer General Exam - General Exam Comments Initial Comments: Constitutional: NAD, AOX3, Pt has pleasant affect. HEENT: NC/AT, trachea midline, neck supple, no lymphadenopathy. Posterior pharynx non erythematous, without exudates. External ears appear normal, without discharge. Mucous membranes moist. Eyes PERRLA, EOM intact. There is no scleral icterus. No pallor noted. Cardiopulmonary: RRR, no murmurs, rubs or gallops, no JVD noted. Lungs CTAB in anterior and posterior dejesus. No peripheral edema. Abdominal exam: Abdomen soft and non-distended. Abdomen non-tender to palpation in all 4 quadrants. Bowel sounds active in LLQ. No hepatosplenomegaly. No ecchymosis Neuro: CN II-XII grossly intact. No nuchal rigidity. MSK: L Mild knee effusion proximal to patella. Knee is non erythematous. Full active and passive ROM of knee. Pt is ambulatory. No posterior calf tenderness bilaterally, homans sign negative bilaterally. Posterior tibialis and radial pulse +2 bilaterally. Sensation intact in upper and lower extremities. Full active ROM in upper and lower extremities, 5/5 stregnth. Limitations: no limitations Course Vital Signs 06/17/18 15:17 Temperature 98.5 F Pulse Rate 73 Respiratory 20 Rate Blood Pressure 105/59 O2 Sat by Pulse 98 Oximetry Medical Decision Making - Medical Decision Making 57-year-old female patient past medical history of ovarian cancer, L meniscus injury, presents in ED with 4 days of left knee pain. Patient states that for the last 4 days she has had pain in her left knee and swelling. Patient denies any recent falls or trauma. Patient states that she had something similar to this before in 2009 and she was diagnosed with synovitis. Patient is ambulatory. Pt VSS, afebrile. L Mild knee effusion proximal to patella. Knee is non erythematous. Full active and passive ROM of knee. Pt is ambulatory. Plain film of left knee displayed miniscule chondrocalcinosis and moderate joint effusion. The effusion is not specific possibly underlying CPPD. Mild degenerative spurring medial and patellofemoral compartments. No acute osseous abnormalities seen. Explained findings to patient in depth. Explained to patient that her presentation could possibly be suspicious for pseudogout or bursitis. Patient verbalized understanding. Discussed with patient low probability for septic joint due to physical exam findings, explained to patient she needs to return immediately to ER if she develops new symptoms including fever chills, nausea vomiting diarrhea, worsening pain, inability to ambulate, any other worsening of symptoms or new symptoms. Patient verbalized understanding of this. Patient to be treated with Toradol ER and ibuprofen outpatient. Patient to follow with PCP 1-2 days. Patient to follow up with orthopedic consult for continued evaluation. Case discussed at length with Dr. Dexter. Disposition Clinical Impression: Knee effusion, left Disposition: HOME SELF-CARE Condition: Good Instructions: Swollen Knee Joint (ED), Pseudogout (ED) Additional Instructions: Patient to adhere to previously discussed treatment plan and will take medication(s) as directed. Patient to follow up with PCP in 1-2 days. Patient to return to ED if symptoms do not improve. Prescriptions: Ibuprofen [Motrin] 600 mg PO Q6HR PRN #40 day PRN Reason: Pain Is patient prescribed a controlled substance at d/c from ED?: No Referrals: Treasure Whitaker DO [Primary Care Provider] - 1-2 days Davian Toussaint MD [STAFF PHYSICIAN] - 1-2 days Time of Disposition: 19:48
== END 2018-06-17 20:22 | disposition home or self-care (01) ==
LOC: EC 15:03
DX: M25.462 Effusion, left knee (principal); M11.262 Other chondrocalcinosis, left knee; F32.9 Major depressive disorder, single episode, unspecified; F17.200 Nicotine dependence, unspecified, uncomplicated; Z85.43 Personal history of malignant neoplasm of ovary; Z79.899 Other long term (current) drug therapy
CPT/HCPCS: 73562; 99284; 96372; J1885

== ENCOUNTER → 2018-08-27 | Outpatient (CLI) | payer BC ==
--- NOTE | 2018-08-28 11:58 | MM ---
Reason for exam: screening (asymptomatic). Last mammogram was performed 3 years and 6 months ago. History: Patient is postmenopausal, has history of ovarian cancer at age 57, and is nulliparous. Physical Findings: A clinical breast exam by your physician is recommended on an annual basis and results should be correlated with mammographic findings. MG 3D Screening Mammo W/Cad Bilateral CC and MLO view(s) were taken. Prior study comparison: February 15, 2015, bilateral MG screening mammo w CAD. May 20, 2012, bilateral digital screening mammo w/CAD. The breast tissue is heterogeneously dense. This may lower the sensitivity of mammography. No suspicious abnormality. No significant changes when compared with prior studies. ASSESSMENT: Negative, BI-RAD 1 RECOMMENDATION: Routine screening mammogram of both breasts in 1 year.
== END | disposition home or self-care (01) ==
LOC: RADMAMWWP 16:40
PROVIDERS: ATTEND Family Medicine
DX: Z12.31 Encounter for screening mammogram for malignant neoplasm of breast (principal)
CPT/HCPCS: 77063; 77067

== ENCOUNTER 2018-12-01 14:42 | Emergency (ER) | payer BC ==
[2018-12-01 14:55] VITALS: TEMP 98.5
[2018-12-01] MEDS ORDERED: KETOROLAC 30 MG/ML 1 ML VIAL IVP STA (15:27)
[2018-12-01 15:36] LABS: Basophils % (A) 0 %; Eosinophils # (A) 0.3 k/uL (0-0.7); Eosinophils % (A) 2 %; HCT 40.8 % (34.0-46.0); HGB 13.1 gm/dL (11.4-16.0); Lymphocytes # (A) 2.9 k/uL (1.0-4.8); Lymphocytes % (A) 21 %; MCH 31.3 pg (25.0-35.0); MCV 97.8 fL (80.0-100.0); Mean Platelet Volume 7.3; Monocytes % (A) 7 %; Neutrophils # (A) 9.4 k/uL (1.3-7.7); Neutrophils % (A) 68 %; Platelet Count 352 k/uL (150-450); RBC 4.17 m/uL (3.80-5.40); RDW 15.4 % (11.5-15.5); WBC 13.8 k/uL (3.8-10.6)
[2018-12-01 15:45] LABS: INR 0.9 (<1.2); Partial Thromboplastin Time 24.3 sec (22.0-30.0); Prothrombin Time 9.8 sec (9.0-12.0)
--- NOTE | 2018-12-01 15:45 | ED ---
General Adult HPI - General Chief complaint: Shortness of Breath Stated complaint: Shoulder pain Time Seen by Provider: 12/01/18 15:03 Source: patient Mode of arrival: ambulatory Limitations: no limitations - History of Present Illness Initial comments: Patient is a 58-year-old female presents emergency Department with pain along both shoulder blades and shortness of breath. Patient reports she has developed constant, dull pain to started "under her left shoulder" on and has since spread the right one. Patient reports the pain does not radiate anywhere and is mostly localized to the left shoulder blade. Patient reports a previous history of similar pain and states that it resolved on its own. Patient reports the pain is alleviated with rest and is exacerbated shoulder reduction about 90 and extension. Patient denies diaphoresis, chest pain, chest tightness, chest palpitations, nausea, vomiting, headache, syncope, dizziness, lightheadedness or blurry vision. Patient denies abdominal pain or low back pain. 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 Patient also reports today she developed shortness of breath today but denies cough or fever. Patient is a smoker. Patient denies asthma or other chronic respiratory conditions. Patient denies taking medication to alleviate the pain. Patient denies leg pain or leg swelling, exogenous estrogen use, recent hospital stay or prolonged periods of activity, but she does report finishing her last course of chemotherapy one year ago for a gynecologic cancer. - Related Data Home Medications Medication Instructions Recorded Confirmed B Complex-Vit C-Vit E-Zinc [Z-Bec] 1 tab PO DAILY 12/01/18 12/01/18 Folic Acid 1 mg PO DAILY 12/01/18 12/01/18 Previous Rx's Medication Instructions Recorded Ibuprofen [Motrin] 600 mg PO Q8HR PRN #30 tab 06/15/17 Acetaminophen Tab [Tylenol Tab] 500 mg PO Q6H PRN #30 tablet 12/01/18 Cyclobenzaprine [Flexeril] 10 mg PO TID PRN #15 tab 12/01/18 Ibuprofen [Motrin] 600 mg PO Q8HR PRN #30 tab 12/01/18 Allergies Allergy/AdvReac Type Severity Reaction Status Date / Time No Known Allergies Allergy Verified 12/01/18 15:06 Review of Systems ROS Statement: Those systems with pertinent positive or pertinent negative responses have been documented in the HPI. ROS Other: All systems not noted in ROS Statement are negative. Past Medical History Past Medical History: Cancer Additional Past Medical History / Comment(s): ovarian CA History of Any Multi-Drug Resistant Organisms: None Reported Past Surgical History: Appendectomy, Bowel Resection, Cholecystectomy, Hysterectomy, Orthopedic Surgery Additional Past Surgical History / Comment(s): sinus, d and c; knee scopes, s pleenectomy, bowel resection Past Anesthesia/Blood Transfusion Reactions: No Reported Reaction Past Psychological History: Depression Smoking Status: Current every day smoker Past Alcohol Use History: None Reported Past Drug Use History: None Reported - Past Family History Mother Family Medical History: Cancer Father Family Medical History: Cancer General Exam Limitations: no limitations General appearance: alert, in no apparent distress Head exam: Present: atraumatic, normocephalic, normal inspection Eye exam: Present: normal appearance, PERRL, EOMI Pupils: Present: normal accommodation ENT exam: Present: normal exam, mucous membranes moist, TM's normal bilaterally Neck exam: Present: normal inspection, full ROM. Absent: tenderness Respiratory exam: Present: normal lung sounds bilaterally. Absent: respiratory distress, wheezes, rales Cardiovascular Exam: Present: regular rate, normal rhythm, normal heart sounds GI/Abdominal exam: Present: soft. Absent: distended, tenderness, guarding Extremities exam: Present: normal inspection, full ROM, normal capillary refill, other (+2 radial and ulnar pulses, bilaterally. +2 posterior tibialis and dorsalis pedis, bilaterally.) Back exam: Present: normal inspection, full ROM, tenderness (Pain along left shoulder blade that is exacerbated with abduction above 90, extension and palpation.). Absent: CVA tenderness (L), vertebral tenderness, rash noted Neurological exam: Present: alert, oriented X3 Psychiatric exam: Present: normal affect, normal mood Skin exam: Present: warm, intact, normal color Course Vital Signs 12/01/18 12/01/18 14:50 17:22 Temperature 98.5 F Pulse Rate 57 L 81 Respiratory 22 18 Rate Blood Pressure 115/68 129/85 O2 Sat by Pulse 99 98 Oximetry EKG Findings - EKG Comments: EKG Findings:: Normal sinus rhythm, possible left atrial enlargement, incomplete right bundle branch block, borderline ECG. Ventricular rate 60, NY interval 172, QRS duration 104, QT/QTc 4 32/432, NY-T axes 68 78 49. Medical Decision Making - Medical Decision Making Patient is a 58-year-old woman presents emergency Department for bilateral sc apular pain and shortness of breath. Full cardiac workup was performed. EKG is negative for a possible PE with no S1Q3T3 right ventricular hypertrophy, T-wave inversions for sinus tach.. Patient denies lower leg edema, prolonged air- driven activity or exogenous estrogen use to this point I have low suspicion for PE; so I am not going to obtain a d-dimer. Chest x-ray is negative for acute cardio EKG negative for contiguous ST elevations. Based on his exam the patient appears to have musculoskeletal pain that appears to be caused due to extraneous physical activity from her job. Patient reports the shortness of breath only appeared today and has resolved during her course in the ED. Candelario libra will be discharged with Tylenol and ibuprofen for pain control. Patient will be also discharged with Flexeril and advised not to drive or operate heavy machinery when taking the medication. Patient advised to follow with primary care. Patient advised to return to emergency department if symptoms worsen. Dr Carrillo also examine the patient and is in agreement with the treatment plan. - Lab Data Result diagrams: 12/01/18 15:25 12/01/18 15:25 Lab Results 12/01/18 12/01/18 12/01/18 Range/Units 15:25 15:25 15:25 WBC 13.8 H (3.8-10.6) k/uL RBC 4.17 (3.80-5.40) m/uL Hgb 13.1 (11.4-16.0) gm/dL Hct 40.8 (34.0-46.0) % MCV 97.8 (80.0-100.0) fL MCH 31.3 (25.0-35.0) pg MCHC 32.0 (31.0-37.0) g/dL RDW 15.4 (11.5-15.5) % Plt Count 352 (150-450) k/uL Neutrophils % 68 % Lymphocytes % 21 % Monocytes % 7 % Eosinophils % 2 % Basophils % 0 % Neutrophils # 9.4 H (1.3-7.7) k/uL Lymphocytes # 2.9 (1.0-4.8) k/uL Monocytes # 1.0 (0-1.0) k/uL Eosinophils # 0.3 (0-0.7) k/uL Basophils # 0.0 (0-0.2) k/uL PT 9.8 (9.0-12.0) sec INR 0.9 (<1.2) APTT 24.3 (22.0-30.0) sec Sodium 138 (137-145) mmol/L Potassium 4.4 (3.5-5.1) mmol/L Chloride 107 (98-107) mmol/L Carbon Dioxide 25 (22-30) mmol/L Anion Gap 6 mmol/L BUN 11 (7-17) mg/dL Creatinine 0.54 (0.52-1.04) mg/dL Est GFR (CKD-EPI)AfAm >90 (>60 ml/min/1.73 sqM) Est GFR (CKD-EPI)NonAf >90 (>60 ml/min/1.73 sqM) Glucose 92 (74-99) mg/dL Calcium 9.6 (8.4-10.2) mg/dL Total Bilirubin 0.4 (0.2-1.3) mg/dL AST 23 (14-36) U/L ALT 13 (9-52) U/L Alkaline Phosphatase 69 (38-126) U/L Troponin I (0.000-0.034) ng/mL Total Protein 7.0 (6.3-8.2) g/dL Albumin 4.2 (3.5-5.0) g/dL Urine Color Urine Appearance (Clear) Urine pH (5.0-8.0) Ur Specific Ramsey (1.001-1.035) Urine Protein (Negative) Urine Glucose (UA) (Negative) Urine Ketones (Negative) Urine Blood (Negative) Urine Nitrite (Negative) Urine Bilirubin (Negative) Urine Urobilinogen (<2.0) mg/dL Ur Leukocyte Esterase (Negative) 12/01/18 12/01/18 Range/Units 15:25 Unknown WBC (3.8-10.6) k/uL RBC (3.80-5.40) m/uL Hgb (11.4-16.0) gm/dL Hct (34.0-46.0) % MCV (80.0-100.0) fL MCH (25.0-35.0) pg MCHC (31.0-37.0) g/dL RDW (11.5-15.5) % Plt Count (150-450) k/uL Neutrophils % % Lymphocytes % % Monocytes % % Eosinophils % % Basophils % % Neutrophils # (1.3-7.7) k/uL Lymphocytes # (1.0-4.8) k/uL Monocytes # (0-1.0) k/uL Eosinophils # (0-0.7) k/uL Basophils # (0-0.2) k/uL PT (9.0-12.0) sec INR (<1.2) APTT (22.0-30.0) sec Sodium (137-145) mmol/L Potassium (3.5-5.1) mmol/L Chloride (98-107) mmol/L Carbon Dioxide (22-30) mmol/L Anion Gap mmol/L BUN (7-17) mg/dL Creatinine (0.52-1.04) mg/dL Est GFR (CKD-EPI)AfAm (>60 ml/min/1.73 sqM) Est GFR (CKD-EPI)NonAf (>60 ml/min/1.73 sqM) Glucose (74-99) mg/dL Calcium (8.4-10.2) mg/dL Total Bilirubin (0.2-1.3) mg/dL AST (14-36) U/L ALT (9-52) U/L Alkaline Phosphatase (38-126) U/L Troponin I <0.012 (0.000-0.034) ng/mL Total Protein (6.3-8.2) g/dL Albumin (3.5-5.0) g/dL Urine Color Light Yellow Urine Appearance Clear (Clear) Urine pH 5.0 (5.0-8.0) Ur Specific Ramsey 1.008 (1.001-1.035) Urine Protein Negative (Negative) Urine Glucose (UA) Negative (Negative) Urine Ketones Negative (Negative) Urine Blood Negative (Negative) Urine Nitrite Negative (Negative) Urine Bilirubin Negative (Negative) Urine Urobilinogen <2.0 (<2.0) mg/dL Ur Leukocyte Esterase Negative (Negative) Disposition Clinical Impression: Musculoskeletal pain Disposition: HOME SELF-CARE Condition: Stable Instructions (If sedation given, give patient instructions): Exercises for Shoulder Flexion and Extension (ED) Additional Instructions: Please take prescribed medication as directed. Alternate between Tylenol and ibuprofen for pain control. Please do not drive or operate heavy machinery when taking Flexeril. Please follow with primary care. Return to emergency d epartment if symptoms worsen. Prescriptions: Cyclobenzaprine [Flexeril] 10 mg PO TID PRN #15 tab PRN Reason: Muscle Spasm Ibuprofen [Motrin] 600 mg PO Q8HR PRN #30 tab PRN Reason: Pain Acetaminophen Tab [Tylenol Tab] 500 mg PO Q6H PRN #30 tablet PRN Reason: Pain Is patient prescribed a controlled substance at d/c from ED?: No Referrals: Treasure Whitaker DO [Primary Care Provider] - 1-2 days Time of Disposition: 17:05
[2018-12-01 15:53] LABS: ALT 13 U/L (9-52); AST 23 U/L (14-36); African American GFR (CKD) >90 (>60 ml/min/1.73 sqM); Albumin 4.2 g/dL (3.5-5.0); Alkaline Phosphatase 69 U/L (38-126); Anion Gap 6 mmol/L; Blood Urea Nitrogen 11 mg/dL (7-17); Calcium 9.6 mg/dL (8.4-10.2); Carbon Dioxide 25 mmol/L (22-30); Chloride 107 mmol/L (98-107); Glucose 92 mg/dL (74-99); Potassium 4.4 mmol/L (3.5-5.1); Sodium 138 mmol/L (137-145); Total Bilirubin 0.4 mg/dL (0.2-1.3)
[2018-12-01 15:54] LABS: Appearance,Urine Clear (Clear); Bilirubin,Urine Negative (Negative); Blood,Urine Negative (Negative); Color,Urine Light Yellow; Glucose,Urine (UA) Negative (Negative); Ketones,Urine Negative (Negative); Leukocyte Esterase,Urine Negative (Negative); Nitrite,Urine Negative (Negative); Protein,Urine Negative (Negative); Specific Gravity,Urine 1.008 (1.001-1.035); Urobilinogen,Urine <2.0 mg/dL (<2.0)
--- NOTE | 2018-12-01 16:19 | XR ---
EXAMINATION TYPE: XR chest 2V DATE OF EXAM: 12/01/2018 COMPARISON: Chest x-ray March 29, 2016. CT chest June 05, 2017. HISTORY: Difficulty in breathing. TECHNIQUE: Frontal and lateral views of the chest are obtained. FINDINGS: Overlying EKG leads are present. There is no focal air space opacity, pleural effusion, or pneumothorax seen. The cardiac silhouette size is within normal limits. The osseous structures are intact. Surgical clips epigastric region are present. IMPRESSION: No acute cardiopulmonary process.
[2018-12-01 17:22] VITALS: BP 129/85; PULSE 81; RESP 18
== END 2018-12-01 17:22 | disposition home or self-care (01) ==
LOC: EC 14:42
DX: M25.511 Pain in right shoulder (principal); M25.512 Pain in left shoulder; R06.02 Shortness of breath; F17.200 Nicotine dependence, unspecified, uncomplicated; Z85.43 Personal history of malignant neoplasm of ovary; Z79.899 Other long term (current) drug therapy; Z90.710 Acquired absence of both cervix and uterus; Z90.49 Acquired absence of other specified parts of digestive tract
CPT/HCPCS: 36415; 93005; 80053; 84484; 85025; 85610; 85730; 81003; 71046; 99285; 96374; J1885

== ENCOUNTER → 2019-03-18 | Outpatient (CLI) | payer BC ==
--- NOTE | 2019-03-19 14:52 | ECHOF ---
Referral Reason:Pre chemo Z01.818 MEASUREMENTS -------- HEIGHT: 165.1 cm WEIGHT: 68.9 kg BP: LAESV Index (A-L): 25.32 ml/m Ao Diam: 3.0 cm (2.0 - 3.7) AV Cusp: 2.2 cm (1.5 - 2.6) LA Diam: 3.4 cm (2.7 - 3.8) MV EXCURSION: 19.848 mm (> 18.000) MV EF SLOPE: 108 mm/s (70 - 150) EPSS: 0.3 cm MV E Donnie: 1.03 m/s MV DecT: 304 ms MV A Donnie: 0.77 m/s MV E/A Ratio: 1.33 RAP: 5.00 mmHg RVSP: 28.51 mmHg TAPSE: 34.36 mm FINDINGS -------- Sinus rhythm. This was a technically good study. The left ventricular size is normal. Left ventricular wall thickness is normal. Overall left vent ricular systolic function is normal with, an EF between 60 - 65 %. The diastolic filling pattern is normal for the age of the patient 12.00. The right ventricle is normal in size. The right ventricular systolic function is normal. The left atrial size is normal. Normal LA size by volume 22+/-6 ml/m2. The right atrial size is normal. Interatrial and interventricular septum intact. Aortic valve is trileaflet and is mildly thickened. The mitral valve is normal. There is trace mitral regurgitation. The tricuspid valve appears structurally normal. Trace tricuspid regurgitation present. Right savannah tricular systolic pressure is normal at < 35 mmHg. There is no pulmonic regurgitation present. The aortic root size is normal. Normal inferior vena cava with normal inspiratory collapse consistent with estimated right atrial pre ssure of 5 mmHg. All pulmonary veins appear normal. The flow patterns, measured by Doppler, appear normal. There is no pericardial effusion. CONCLUSIONS -------- 1. Sinus rhythm. 2. This was a technically good study. 3. The left ventricular size is normal. 4. Left ventricular wall thickness is normal. 5. Overall left ventricular systolic function is normal with, an EF between 60 - 65 %. 6. The diastolic filling pattern is normal for the age of the patient 12.00 7. The right ventricle is normal in size. 8. The right ventricular systolic function is normal. 9. The left atrial size is normal. 10. Normal LA size by volume 22+/-6 ml/m2. 11. The right atrial size is normal. 12. Interatrial and interventricular septum intact. 13. Aortic valve is trileaflet and is mildly thickened. 14. The mitral valve is normal. 15. There is trace mitral regurgitation. 16. The tricuspid valve appears structurally normal. 17. Trace tricuspid regurgitation present. 18. Right ventricular systolic pressure is normal at < 35 mmHg. 19. There is no pulmonic regurgitation present. 20. The aortic root size is normal. 21. Normal inferior vena cava with normal inspiratory collapse consistent with estimated right atrial pressure of 5 mmHg. 22. All pulmonary veins appear normal. 23. The flow patterns, measured by Doppler, appear normal. 24. There is no pericardial effusion. DIRECTOR OF EDUCATION AND TRAINING: Alexandra Brewster RDCS
== END | disposition home or self-care (01) ==
LOC: RADECHMAIN 15:38
PROVIDERS: ATTEND Family Medicine
DX: Z01.818 Encounter for other preprocedural examination (principal); I35.8 Other nonrheumatic aortic valve disorders
CPT/HCPCS: 93306

== ENCOUNTER 2019-11-30 11:02 | Emergency (ER) | payer BC ==
[2019-11-30 11:21] VITALS: BP 112/85; PULSE 75; RESP 16; TEMP 98.1
[2019-11-30] MEDS ORDERED: IBUPROFEN 600 MG TAB PO STA (11:38)
--- NOTE | 2019-11-30 12:01 | XR ---
EXAMINATION TYPE: XR wrist complete LT , 4 VIEWS DATE OF EXAM ORDERED: 11/30/2019 HISTORY: pain. COMPARISON: None. FINDINGS: No fracture, dislocation or other acute osseous lesion is seen. There is mild widening of the scapholunate distance. It would be difficult to exclude a scapholunate ligament disruption. IMPRESSION: 1. NO ACUTE OSSEOUS LESION. 2. IT WOULD BE DIFFICULT TO EXCLUDE DISRUPTION OF THE SCAPHOLUNATE LIGAMENT.
--- NOTE | 2019-11-30 12:08 | ED ---
General Adult HPI - General Chief complaint: Extremity Problem,Nontraumatic Stated complaint: hand & wrist pain Time Seen by Provider: 11/30/19 11:25 Source: patient, RN notes reviewed, old records reviewed Mode of arrival: ambulatory Limitations: no limitations - History of Present Illness Initial comments: 59-year-old female with left wrist pain. No trauma. No specific overuse. She states she had a bump on the medial aspect of the wrist, which was approximately 1-2 cm in size which has resolved. She noticed this yesterday. No fever. Patient states wrist pain with range of motion of the wrist. No warmth. No swelling of the wrist. - Related Data Home Medications Medication Instructions Recorded Confirmed Hydrocodone/Acetaminophen [[place] 1 tab PO Q6H PRN 04/30/19 08/27/19 5-325] Ondansetron HCl [Zofran] 4 mg PO Q6H PRN 04/30/19 08/27/19 Previous Rx's Medication Instructions Recorded Ibuprofen [Motrin] 600 mg PO Q8HR PRN #24 tab 11/30/19 Allergies Allergy/AdvReac Type Severity Reaction Status Date / Time No Known Allergies Allergy Verified 11/30/19 11:21 Review of Systems ROS Statement: Those systems with pertinent positive or pertinent negative responses have been documented in the HPI. ROS Other: All systems not noted in ROS Statement are negative. Past Medical History Past Medical History: Cancer Additional Past Medical History / Comment(s): ovarian CA History of Any Multi-Drug Resistant Organisms: None Reported Past Surgical History: Appendectomy, Bowel Resection, Cholecystectomy, Hysterectomy, Orthopedic Surgery Additional Past Surgical History / Comment(s): sinus, d and c; knee scopes, spleenectomy, bowel resection Past Anesthesia/Blood Transfusion Reactions: No Reported Reaction Past Psychological History: Depression Smoking Status: Former smoker - Past Family History Mother Family Medical History: Cancer Father Family Medical History: Cancer General Exam Limitations: no limitations General appearance: alert, in no apparent distress Head exam: Present: atraumatic, normocephalic Eye exam: Present: normal appearance, PERRL ENT exam: Present: normal exam Neck exam: Present: normal inspection. Absent: tenderness, meningismus Respiratory exam: Present: normal lung sounds bilaterally. Absent: respiratory distress, wheezes Cardiovascular Exam: Present: regular rate, normal rhythm GI/Abdominal exam: Present: soft. Absent: distended, tenderness, guarding Extremities exam: Present: tenderness (Patient has some pain with range of motion at the wrist, there is no swelling, no warmth, no signs of ganglion cyst, range of motion of the fingers is normal. Distal pulses intact, normal cap refill.). Absent: joint swelling Course Vital Signs 11/30/19 11:18 Temperature 98.1 F Pulse Rate 75 Respiratory 16 Rate Blood Pressure 112/85 O2 Sat by Pulse 98 Oximetry - Reevaluation(s) Reevaluation #1: 11/30/19 12:06 I have a very low suspicion for septic arthritis, but patient is given anticipatory guidance regarding signs and symptoms and will represent as needed. Procedures - Orthopedic Splinting/Casting Injury #1 Side: left Upper Extremity Injury Location: wrist Upper Extremity Immobilizer: volar splint Additional Comments: Normal neurovascular exam both before and after splinting Medical Decision Making - Medical Decision Making X-ray performed, no acute fracture dislocation, concern for scaphoid lunate disruption. There was no trauma. But given the pain complaints, patient will be placed in a volar splint. She will follow-up with orthopedics. She is prescribed Motrin for pain. History is suggestive of a ruptured ganglion cyst. Disposition Clinical Impression: Wrist strain Disposition: HOME SELF-CARE Condition: Good Instructions (If sedation given, give patient instructions): Wrist Sprain (ED) Prescriptions: Ibuprofen [Motrin] 600 mg PO Q8HR PRN #24 tab PRN Reason: Pain Is patient prescribed a controlled substance at d/c from ED?: No Referrals: Treasure Whitaker DO [Primary Care Provider] - 1-2 days Davian Toussaint MD [STAFF PHYSICIAN] - 1-2 days Time of Disposition: 12:07
== END 2019-11-30 12:20 | disposition home or self-care (01) ==
LOC: EC 11:02
DX: S66.912A Strain of unspecified muscle, fascia and tendon at wrist and hand level, left hand, initial encounter (principal); Z87.891 Personal history of nicotine dependence; Z85.43 Personal history of malignant neoplasm of ovary
CPT/HCPCS: 29125; 99284

== ENCOUNTER 2020-01-12 09:32 | Emergency (ER) | payer BC ==
[2020-01-12 09:39] VITALS: TEMP 98.2
[2020-01-12] MEDS ORDERED: HYDROmorphone 0.5 MG/0.5 ML SYRINGE IVP PRN (10:05)
[2020-01-12] MEDS ORDERED: SODIUM CHLORIDE 0.9% 1,000 ML IV SCH (10:15)
--- NOTE | 2020-01-12 10:26 | ED ---
Recheck HPI - General Source: patient Mode of arrival: wheelchair Limitations: no limitations <Anjana Smith - Last Filed: 01/12/20 12:24> <Melanie Alba - Last Filed: 01/13/20 15:30> - General Chief Complaint: Recheck/Abnormal Lab/Rx Stated Complaint: groin pain Time Seen by Provider: 01/12/20 09:49 - History of Present Illness Initial Comments: 59-year-old female with history of ovarian cancer which she states is currently in remission and she is going to begin maintenance chemotherapy presenting to the emergency department today for chief complaint of right upper thigh pain. Patient sates her right medial upper thigh has been hurting. She denies any leg swelling and calf pain. Patient has a chest pain shortness of breath abdominal pain. Patient states that the pain is not within the groin, she denies any hip or back pain. Patent denies noting any specific injuries or activities where she could have hurt the leg. She states that when the pain is at its maximum she has some nausea. patien has no additional complaints she appears well on arrival. no acute distress. (Anjana Smith) - Related Data Home Medications Medication Instructions Recorded Confirmed Hydrocodone/Acetaminophen [[place] 1 tab PO Q6H PRN 04/30/19 01/12/20 5-325] Ibuprofen 600 mg PO Q6H PRN 01/12/20 01/12/20 Pantoprazole Sodium 40 mg PO DAILY 01/12/20 01/12/20 Allergies Allergy/AdvReac Type Severity Reaction Status Date / Time No Known Allergies Allergy Verified 01/12/20 11:43 Review of Systems ROS Other: All systems not noted in ROS Statement are negative. <Anjana Smith - Last Filed: 01/12/20 12:24> ROS Other: All systems not noted in ROS Statement are negative. <Melanie Alba - Last Filed: 01/13/20 15:30> ROS Statement: Those systems with pertinent positive or pertinent negative responses have been documented in the HPI. Past Medical History Past Medical History: Cancer Additional Past Medical History / Comment(s): ovarian CA History of Any Multi-Drug Resistant Organisms: None Reported Past Surgical History: Appendectomy, Bowel Resection, Cholecystectomy, Hys terectomy, Orthopedic Surgery Additional Past Surgical History / Comment(s): sinus, d and c; knee scopes, spleenectomy, bowel resection Past Anesthesia/Blood Transfusion Reactions: No Reported Reaction Past Psychological History: Depression Smoking Status: Current every day smoker Past Alcohol Use History: None Reported Past Drug Use History: None Reported - Past Family History Mother Family Medical History: Cancer Father Family Medical History: Cancer <Anjana Smith - Last Filed: 01/12/20 12:24> General Exam Limitations: no limitations <Anjana Smith - Last Filed: 01/12/20 12:24> - General Exam Comments Initial Comments: General: The patient is awake and alert, in no distress Eye: +3 mmm pupils are equal, round and reactive to light, extra-ocular movements are intact. No nystagmus. There is normal conjunctiva bilaterally. No signs of icterus. Cardiovascular: There is a regular rate and rhythm. No murmur, rub or gallop is appreciated. Respiratory: Lungs are clear to auscultation, respirations are non-labored, breath sounds are equal. No wheezes, stridor, rales, or rhonchi. Gastrointestinal: Soft, non-distended, non-tender abdomen without masses or organomegaly noted. There is no rebound or guarding present. Musculoskeletal: Upon inspection of the abdomen and groin bilaterally and thighs there is no evidence of skin changes no swelling no distal swelling of the calf or foot. No pitting edema. No tenderness to palpation of the calf or pain with flexion. Patient has some tenderness to palpation of the medial aspect of upper thigh. There is no pain to palpation or evidence of hernia on groin examination. Strong pulses. Normal ROM, no tenderness of the knees and ankles. Strength 5/5. Sensation intact of the LE b/l. Radial and DP pulses equal bilaterally 2+. Neurological: A&O x 3. CN II-XII intact grossly, There are no obvious motor or sensory deficits. Coordination appears grossly intact. Speech is normal. Skin: Skin is warm and dry and no rashes or lesions are noted. Psychiatric: Cooperative, appropriate mood & affect, normal judgment. (Anjana Smith) Course <Anjana Smith - Last Filed: 01/12/20 12:24> Vital Signs 01/12/20 01/12/20 09:34 11:56 Temperature 98.2 F Pulse Rate 78 70 Respiratory 18 14 Rate Blood Pressure 103/67 110/70 O2 Sat by Pulse 96 98 Oximetry - Reevaluation(s) Reevaluation #1: pt disclosed on reevaluation that she is out of her norco pills, was requesting a refill. Patient 01/12/20 11:13 (Anjana Smith) Medical Decision Making - Lab Data Result diagrams: 01/12/20 10:08 01/12/20 11:39 <Anjana Smith - Last Filed: 01/12/20 12:24> - Lab Data Result diagrams: 01/12/20 10:08 01/12/20 11:39 <Melanie Alba - Last Filed: 01/13/20 15:30> - Medical Decision Making 59-year-old female presenting today for chief complaint of left thigh pain. Patient complaining of left thigh pain. There is no evidence of groin pain no hernias. No pain to palpation of the abdomen or pelvic region. Patient has very good peripheral pulses dorsalis pedis pulses equal bilaterally. No calf pain or swelling. Given history of cancer patient had an ulcer of the leg obtained to rule out DVT there is no evidence of thrombosed at this time. Patient labs stable. Pain controlled. Patient will be discharged [facility] starter pack of tylenol and pcp f/u. Patient was requesting pain medications as she is out of her [place]. I discussed she needs to obtain referral from her inital pre scribing provider .Patient case discussed [facility] Dr. Alba who is agreeable to care plan and discharge .at this time given PE and labs/imaging i feel is calf strain, but did recommend repeat US for persistent symptoms or any swelling. (Anjana Smith) I was available for consultation in the emergency department. The history and physical exam were done by the midlevel provider. I was consulted for this patients care. I reviewed the case with the midlevel provider and based on their presentation of the patient, I agree with the assessment, medical decision making and plan of care as documented. Chart was dictated using [employer] dictation software. Attempts were made to correct any dictation errors however some typographical errors may persist. Patient was seen during a national state of emergency due to the Covid-19 pandemic. (Melanie Alba) - Lab Data Lab Results 01/12/20 01/12/20 01/12/20 Range/Units 10:08 10:08 11:39 WBC 11.5 H (3.8-10.6) k/uL RBC 3.30 L (3.80-5.40) m/uL Hgb 12.7 (11.4-16.0) gm/dL Hct 37.6 (34.0-46.0) % MCV 113.9 H (80.0-100.0) fL MCH 38.5 H (25.0-35.0) pg MCHC 33.8 (31.0-37.0) g/dL RDW 16.2 H (11.5-15.5) % Plt Count 405 (150-450) k/uL Neutrophils % 64 % Lymphocytes % 14 % Monocytes % 17 % Eosinophils % 2 % Basophils % 0 % Neutrophils # 7.4 (1.3-7.7) k/uL Lymphocytes # 1.7 (1.0-4.8) k/uL Monocytes # 2.0 H (0-1.0) k/uL Eosinophils # 0.2 (0-0.7) k/uL Basophils # 0.1 (0-0.2) k/uL Manual Slide Review Performed Poikilocytosis (manual Present Anisocytosis Slight Macrocytosis Marked A Target Cells Present [place] Bodies Present Sodium 135 L (137-145) mmol/L Potassium 3.7 (3.5-5.1) mmol/L Chloride 106 (98-107) mmol/L Carbon Dioxide 23 (22-30) mmol/L Anion Gap 6 mmol/L BUN 11 (7-17) mg/dL Creatinine 0.43 L (0.52-1.04) mg/dL Est GFR (CKD-EPI)AfAm >90 (>60 ml/min/1.73 sqM) Est GFR (CKD-EPI)NonAf >90 (>60 ml/min/1.73 sqM) Glucose 91 (74-99) mg/dL Plasma Lactic Acid Jeff 1.1 (0.7-2.0) mmol/L Calcium 8.7 (8.4-10.2) mg/dL Total Bilirubin 0.5 (0.2-1.3) mg/dL AST 21 (14-36) U/L ALT 9 (4-34) U/L Alkaline Phosphatase 77 (38-126) U/L Total Protein 6.2 L (6.3-8.2) g/dL Albumin 3.4 L (3.5-5.0) g/dL Disposition Is patient prescribed a controlled substance at d/c from ED?: No Time of Disposition: 12:14 <Anjana Smith - Last Filed: 01/12/20 12:24> <Melanie Alba - Last Filed: 01/13/20 15:30> Clinical Impression: Thigh pain Disposition: HOME SELF-CARE Condition: Good Instructions (If sedation given, give patient instructions): Muscle Strain (ED) Additional Instructions: Please use medication as discussed. Please follow-up with family doctor in the next 2 days. Please return to emergency room if the symptoms increase or worsen or for any other concerns. Referrals: Treasure Whitaker DO [Primary Care Provider] - 1-2 days
[2020-01-12 10:55] LABS: Anisocytosis Slight; Basophils # (A) 0.1 k/uL (0-0.2); Basophils % (A) 0 %; Eosinophils # (A) 0.2 k/uL (0-0.7); Eosinophils % (A) 2 %; HCT 37.6 % (34.0-46.0); HGB 12.7 gm/dL (11.4-16.0); Lymphocytes # (A) 1.7 k/uL (1.0-4.8); Lymphocytes % (A) 14 %; MCH 38.5 pg (25.0-35.0); MCHC 33.8 g/dL (31.0-37.0); MCV 113.9 fL (80.0-100.0); Macrocytosis Marked; Mean Platelet Volume 8.2; Monocytes % (A) 17 %; Neutrophils # (A) 7.4 k/uL (1.3-7.7); Neutrophils % (A) 64 %; Platelet Count 405 k/uL (150-450); RDW 16.2 % (11.5-15.5); WBC 11.5 k/uL (3.8-10.6)
--- NOTE | 2020-01-12 11:03 | US ---
EXAMINATION TYPE: US venous doppler duplex LE LT DATE OF EXAM: 01/12/2020 10:55 AM COMPARISON: NONE CLINICAL HISTORY: left thigh pain medial. pain left thigh SIDE PERFORMED: left TECHNIQUE: The lower extremity deep venous system is examined utilizing real time linear array sonog hung with graded compression, doppler sonography and color-flow sonography. VESSELS IMAGED: External Iliac Vein (EIV) Common Femoral Vein Deep Femoral Vein Greater Saphenous Vein * Femoral Vein Popliteal Vein Small Saphenous Vein * Proximal Calf Veins (* superficial vessels) Left Leg: No evidence of DVT. Rouleaux flow noted throughout IMPRESSION: Evidence for DVT at this time.
[2020-01-12 11:25] LABS: Poikilocytosis (M) Present; Target Cells Present
[2020-01-12 11:26] LABS: Howell-Jolly Bodies Present
[2020-01-12 11:57] VITALS: BP 110/70; PULSE 70; RESP 14
[2020-01-12 12:04] LABS: ALT 9 U/L (4-34); AST 21 U/L (14-36); African American GFR (CKD) >90 (>60 ml/min/1.73 sqM); Albumin 3.4 g/dL (3.5-5.0); Alkaline Phosphatase 77 U/L (38-126); Anion Gap 6 mmol/L; Blood Urea Nitrogen 11 mg/dL (7-17); Calcium 8.7 mg/dL (8.4-10.2); Carbon Dioxide 23 mmol/L (22-30); Chloride 106 mmol/L (98-107); Glucose 91 mg/dL (74-99); Non-African American GFR(CKD) >90 (>60 ml/min/1.73 sqM); Potassium 3.7 mmol/L (3.5-5.1); Sodium 135 mmol/L (137-145); Total Bilirubin 0.5 mg/dL (0.2-1.3); Total Protein 6.2 g/dL (6.3-8.2)
== END 2020-01-12 12:20 | disposition home or self-care (01) ==
LOC: EC 09:32
DX: M79.651 Pain in right thigh (principal); R07.9 Chest pain, unspecified; C56.9 Malignant neoplasm of unspecified ovary; F17.200 Nicotine dependence, unspecified, uncomplicated; Z80.9 Family history of malignant neoplasm, unspecified
CPT/HCPCS: 36415; 80053; 83605; 85025; 93971; 99284; 96374; 96361 ×2; J1170

== ENCOUNTER 2020-03-29 11:36 | Emergency (ER) | payer BC ==
[2020-03-29 12:03] VITALS: BP 118/78; TEMP 97.8
[2020-03-29] MEDS ORDERED: ONDANSETRON 4 MG/2 ML VIAL IVP STA (12:33)
[2020-03-29] MEDS ORDERED: KETOROLAC 15 MG/ML 1 ML VIAL IVP STA (12:33)
[2020-03-29] MEDS ORDERED: SODIUM CHLORIDE 0.9% 1,000 ML IV STA (12:34)
[2020-03-29 13:03] LABS: Basophils # (A) 0.1 k/uL (0-0.2); Basophils % (A) 1 %; Eosinophils # (A) 0.4 k/uL (0-0.7); Eosinophils % (A) 3 %; HCT 48.3 % (34.0-46.0); HGB 16.1 gm/dL (11.4-16.0); Lymphocytes # (A) 3.2 k/uL (1.0-4.8); Lymphocytes % (A) 23 %; MCH 34.6 pg (25.0-35.0); MCHC 33.2 g/dL (31.0-37.0); MCV 104.2 fL (80.0-100.0); Macrocytosis Slight; Mean Platelet Volume 7.6; Monocytes # (A) 1.3 k/uL (0-1.0); Monocytes % (A) 9 %; Neutrophils # (A) 8.9 k/uL (1.3-7.7); Neutrophils % (A) 64 %; Platelet Count 431 k/uL (150-450); RBC 4.64 m/uL (3.80-5.40); RDW 13.6 % (11.5-15.5)
[2020-03-29 13:12] LABS: Appearance,Urine Cloudy (Clear); Bilirubin,Urine Negative (Negative); Blood,Urine Negative (Negative); Color,Urine Yellow; Glucose,Urine (UA) Negative (Negative); Ketones,Urine Trace (Negative); Leukocyte Esterase,Urine Negative (Negative); Mucus,Urine Many /hpf; Nitrite,Urine Negative (Negative); PH, Urine 5.5 (5.0-8.0); Protein,Urine Trace (Negative); RBC,Urine 3 /hpf (0-5); Specific Gravity,Urine 1.031 (1.001-1.035); Squamous Epithelial Cell,Urine 3 /hpf (0-4); Urobilinogen,Urine <2.0 mg/dL (<2.0); WBC,Urine 6 /hpf (0-5)
[2020-03-29 13:25] LABS: ALT 13 U/L (4-34); AST 33 U/L (14-36); African American GFR (CKD) >90 (>60 ml/min/1.73 sqM); Albumin 4.2 g/dL (3.5-5.0); Alkaline Phosphatase 70 U/L (38-126); Amylase 53 U/L (30-110); Anion Gap 10 mmol/L; Blood Urea Nitrogen 19 mg/dL (7-17); Calcium 9.9 mg/dL (8.4-10.2); Carbon Dioxide 26 mmol/L (22-30); Chloride 99 mmol/L (98-107); Glucose 97 mg/dL (74-99); Non-African American GFR(CKD) >90 (>60 ml/min/1.73 sqM); Sodium 135 mmol/L (137-145); Total Bilirubin 0.8 mg/dL (0.2-1.3); Total Protein 7.6 g/dL (6.3-8.2)
[2020-03-29 13:28] LABS: Potassium 4.6 mmol/L (3.5-5.1)
--- NOTE | 2020-03-29 13:35 | ED ---
General Adult HPI - General Chief complaint: Abdominal Pain Stated complaint: Vomiting, Chills Time Seen by Provider: 03/29/20 12:12 Source: patient, RN notes reviewed Mode of arrival: ambulatory Limitations: no limitations - History of Present Illness Initial comments: 59-year-old female with an extensive surgical history presents to the emergency room department for abdominal pain. Patient states she has been vomiting with abdominal pain for the past 3 days. She denies diarrhea. Patient thinks she has the flu. No fevers or chills. Patient does have a history of ovarian cancer. She receives chemotherapy every 3 weeks with the last dose being 5 days ago. Patient reports she was diagnosed with ovarian cancer in 2018 and had extensive surgery including complete hysterectomy, splenectomy, cholecystectomy, and bowel resection. Cancer returned and now patient has been undergoing chemotherapy. Patient has no other complaints at this time including shortness of breath, chest pain, headache, or visual changes. - Related Data Home Medications Medication Instructions Recorded Confirmed Pantoprazole Sodium 40 mg PO DAILY 01/12/20 03/29/20 Compazine Unknown Dose 1 tab PO DAILY PRN 03/29/20 03/29/20 Magnesium 200 mg PO DAILY 03/29/20 03/29/20 Metoclopramide [Reglan] 10 mg PO ACHS 03/29/20 03/29/20 Potassium Gluconate 99 mg PO DAILY 03/29/20 03/29/20 Prenatabs 1 tab PO DAILY 03/29/20 03/29/20 Allergies Allergy/AdvReac Type Severity Reaction Status Date / Time No Known Allergies Allergy Verified 03/29/20 13:26 Review of Systems ROS Statement: Those systems with pertinent positive or pertinent negative responses have been documented in the HPI. ROS Other: All systems not noted in ROS Statement are negative. Past Medical History Past Medical History: Cancer Additional Past Medical History / Comment(s): ovarian CA History of Any Multi-Drug Resistant Organisms: None Reported Past Surgical History: Appendectomy, Bowel Resection, Cholecystectomy, Hysterectomy, Orthopedic Surgery Additional Past Surgical History / Comment(s): sinus, d and c; knee scopes, spleenectomy, bowel resection Past Anesthesia/Blood Transfusion Reactions: No Reported Reaction Past Psychological History: Depression Smoking Status: Current every day smoker Past Alcohol Use History: None Reported Past Drug Use History: None Reported - Past Family History Mother Family Medical History: Cancer Father Family Medical History: Cancer General Exam Limitations: no limitations General appearance: alert, in no apparent distress Head exam: Present: atraumatic, normocephalic, normal inspection Eye exam: Present: normal appearance, PERRL, EOMI. Absent: scleral icterus, conjunctival injection, periorbital swelling ENT exam: Present: normal exam, mucous membranes moist Neck exam: Present: normal inspection, full ROM. Absent: tenderness, meningismus, lymphadenopathy Respiratory exam: Present: normal lung sounds bilaterally. Absent: respiratory distress, wheezes, rales, rhonchi, stridor Cardiovascular Exam: Present: regular rate, normal rhythm, normal heart sounds. Absent: systolic murmur, diastolic murmur, rubs, gallop, clicks GI/Abdominal exam: Present: soft, tenderness (Generalized abdominal tenderness worse in the upper abdomen.), normal bowel sounds. Absent: distended, guarding, rebound, rigid Neurological exam: Present: alert Course Vital Signs 03/29/20 12:03 Temperature 97.8 F Pulse Rate 78 Respiratory 16 Rate Blood Pressure 118/78 O2 Sat by Pulse 97 Oximetry Medical Decision Making - Medical Decision Making Vitals are stable. CBC does show leukocytosis and hemoconcentration. CMP unremarkable. Trace ketones and urine is likely related to dehydration. CT abdomen and pelvis was performed given extensive surgical history. This did have several findings which were discussed with the patient. The most acutely concerning finding are hyperemic loops of small bowel within the left and mid abdomen with mild wall thickening. Some jejunal loops are dilated up to 3.8 cm with possible transition point in the left lower abdomen. She is unable to exclude a developing small bowel obstruction with possible concrete enteritis. Other findings include a small amount of ascites, status post splenectomy, gastritis, mild thickening of the left adrenal gland. I did recommend transfer to [facility] where patient's surgeon is located. Patient adamantly refuses this. She states there is no way she can do this today. Patient states she will drive herself down tomorrow. I discussed risks of leaving AGAINST MEDICAL ADVICE. Patient is aware and agrees to leave AGAINST MEDICAL ADVICE. She is aware she can return here or go to [facility] emergency room. - Lab Data Result diagrams: 03/29/20 12:52 03/29/20 12:52 Lab Results 10/12/20 10/12/20 10/12/20 Range/Units 12:52 12:52 12:52 WBC 14.0 H (3.8-10.6) k/uL RBC 4.64 (3.80-5.40) m/uL Hgb 16.1 H (11.4-16.0) gm/dL Hct 48.3 H (34.0-46.0) % MCV 104.2 H (80.0-100.0) fL MCH 34.6 (25.0-35.0) pg MCHC 33.2 (31.0-37.0) g/dL RDW 13.6 (11.5-15.5) % Plt Count 431 (150-450) k/uL Neutrophils % 64 % Lymphocytes % 23 % Monocytes % 9 % Eosinophils % 3 % Basophils % 1 % Neutrophils # 8.9 H (1.3-7.7) k/uL Lymphocytes # 3.2 (1.0-4.8) k/uL Monocytes # 1.3 H (0-1.0) k/uL Eosinophils # 0.4 (0-0.7) k/uL Basophils # 0.1 (0-0.2) k/uL Macrocytosis Slight Sodium 135 L (137-145) mmol/L Potassium 4.6 (3.5-5.1) mmol/L Chloride 99 (98-107) mmol/L Carbon Dioxide 26 (22-30) mmol/L Anion Gap 10 mmol/L BUN 19 H (7-17) mg/dL Creatinine 0.66 (0.52-1.04) mg/dL Est GFR (CKD-EPI)AfAm >90 (>60 ml/min/1.73 sqM) Est GFR (CKD-EPI)NonAf >90 (>60 ml/min/1.73 sqM) Glucose 97 (74-99) mg/dL Plasma Lactic Acid Jeff (0.7-2.0) mmol/L Calcium 9.9 (8.4-10.2) mg/dL Total Bilirubin 0.8 (0.2-1.3) mg/dL AST 33 (14-36) U/L ALT 13 (4-34) U/L Alkaline Phosphatase 70 (38-126) U/L Total Protein 7.6 (6.3-8.2) g/dL Albumin 4.2 (3.5-5.0) g/dL Amylase 53 (30-110) U/L Lipase 34 (23-300) U/L Urine Color Yellow Urine Appearance Cloudy H (Clear) Urine pH 5.5 (5.0-8.0) Ur Specific [place] 1.031 (1.001-1.035) Urine Protein Trace H (Negative) Urine Glucose (UA) Negative (Negative) Urine Ketones Trace H (Negative) Urine Blood Negative (Negative) Urine Nitrite Negative (Negative) Urine Bilirubin Negative (Negative) Urine Urobilinogen <2.0 (<2.0) mg/dL Ur Leukocyte Esterase Negative (Negative) Urine RBC 3 (0-5) /hpf Urine WBC 6 H (0-5) /hpf Ur Squamous Epith Cells 3 (0-4) /hpf Urine Mucus Many H (None) /hpf 03/29/20 Range/Units 12:52 WBC (3.8-10.6) k/uL RBC (3.80-5.40) m/uL Hgb (11.4-16.0) gm/dL Hct (34.0-46.0) % MCV (80.0-100.0) fL MCH (25.0-35.0) pg MCHC (31.0-37.0) g/dL RDW (11.5-15.5) % Plt Count (150-450) k/uL Neutrophils % % Lymphocytes % % Monocytes % % Eosinophils % % Basophils % % Neutrophils # (1.3-7.7) k/uL Lymphocytes # (1.0-4.8) k/uL Monocytes # (0-1.0) k/uL Eosinophils # (0-0.7) k/uL Basophils # (0-0.2) k/uL Macrocytosis Sodium (137-145) mmol/L Potassium (3.5-5.1) mmol/L Chloride (98-107) mmol/L Carbon Dioxide (22-30) mmol/L Anion Gap mmol/L BUN (7-17) mg/dL Creatinine (0.52-1.04) mg/dL Est GFR (CKD-EPI)AfAm (>60 ml/min/1.73 sqM) Est GFR (CKD-EPI)NonAf (>60 ml/min/1.73 sqM) Glucose (74-99) mg/dL Plasma Lactic Acid Jeff 1.4 (0.7-2.0) mmol/L Calcium (8.4-10.2) mg/dL Total Bilirubin (0.2-1.3) mg/dL AST (14-36) U/L ALT (4-34) U/L Alkaline Phosphatase (38-126) U/L Total Protein (6.3-8.2) g/dL Albumin (3.5-5.0) g/dL Amylase (30-110) U/L Lipase (23-300) U/L Urine Color Urine Appearance (Clear) Urine pH (5.0-8.0) Ur Specific [place] (1.001-1.035) Urine Protein (Negative) Urine Glucose (UA) (Negative) Urine Ketones (Negative) Urine Blood (Negative) Urine Nitrite (Negative) Urine Bilirubin (Negative) Urine Urobilinogen (<2.0) mg/dL Ur Leukocyte Esterase (Negative) Urine RBC (0-5) /hpf Urine WBC (0-5) /hpf Ur Squamous Epith Cells (0-4) /hpf Urine Mucus (None) /hpf Disposition Clinical Impression: Abdominal pain Narrative: Developing small bowel obstruction Thickened adrenal gland Disposition: Left Against Medical Advice Condition: Undetermined Instructions (If sedation given, give patient instructions): Abdominal Pain (ED) Additional Instructions: You agreed to leave AGAINST MEDICAL ADVICE for developing small bowel obstruction. Please make sure you see your surgeon no later than tomorrow. If you cannot get into your surgeon you will need to go to the emergency center at [facility]. Is patient prescribed a controlled substance at d/c from ED?: No Referrals: Treasure Whitaker DO [Primary Care Provider] - 1-2 days Time of Disposition: 15:24
--- NOTE | 2020-03-29 14:31 | CT ---
EXAMINATION TYPE: CT abdomen pelvis w con DATE OF EXAM: 03/29/2020 COMPARISON: 06/02/2017 HISTORY: 59-year-old female nausea, vomiting TECHNIQUE: Contiguous axial scanning of the abdomen and pelvis following administration of 100 ml Iso ricardo 300 IV contrast. Delayed images through the kidneys and coronal/sagittal reconstructions perform ed. CT DLP: 701 mGycm Automated exposure control for dose reduction was used. FINDINGS: Heart normal size without pericardial effusion. Lung bases clear without pleural effusion. No focal liver lesion. Bile duct prominent at 6 mm, acceptable given postcholecystectomy status. Port al venous system is patent. Mild diffuse thickening of the left adrenal gland without discrete nodularity though this seems incre ased from 06/02/2017. Short interval follow-up in 6 months to reassess. Right adrenal gland, kidneys, and pancreas show no gross abnormality. No donna abdominal or pelvic ad enopathy seen. Spleen appears surgically absent in the interval. Some mild circumferential wall thickening at the level of the distal gastric body and antrum, axial i mage 23 and 24. Dilated jejunal loops in the left side of the abdomen measuring up to 3.8 cm. Most of the distal smal l bowel loops appear relatively collapsed. Multiple small bowel loops in the mid and left-sided abdom en appear hyperemic with mild wall thickening. Possible transition point on coronal image 41. This is to be some surgery has bowel in the lower right abdomen and right side of pelvis. Mild mid and lower abdominal ascites. Scattered [id number] metastatic calcifications infrarenal abdominal aorta and iliac arteries. No mesenteric or retroperitoneal lymphadenopathy identified. Bladder is collapsed. Surgically absent. No pelvic lymphadenopathy seen. Bone: Generalized osteopenia suggested by the patchy lucencies throughout the osseous structures. IMPRESSION: 1. HYPEREMIC LOOPS OF SMALL BOWEL WITHIN THE LEFT AND MIDABDOMEN WITH MILD WALL THICKENING. SOME JEJU NAL LOOPS ARE DILATED UP TO 3.8 CM AND THERE IS A POSSIBLE TRANSITION POINT IN THE LEFT LOWER ABDOMEN . UNABLE TO EXCLUDE A DEVELOPING SMALL BOWEL OBSTRUCTION, POSSIBLE CONCURRENT ENTERITIS. 2. SMALL AMOUNT OF MID AND LOWER ABDOMINAL ASCITES OF UNKNOWN ETIOLOGY. FURTHER CLINICAL CORRELATION RECOMMENDED GIVEN THE LARGE AMOUNT OF ASCITES PRESENT ON THE PATIENT'S OLDER 2017 EXAMS. 3. STATUS POST SPLENECTOMY. THERE ALSO SEEMS TO BE SOME PREVIOUS BOWEL SURGERY IN THE RIGHT LOWER EMELY DRANT AND RIGHT PELVIS. 4. COLLAPSED BLADDER WITH CIRCUMFERENTIALLY THICKENED WALL. CORRELATE TO EXCLUDE CYSTITIS. 5. SOME MURAL BASED THICKENING ALONG THE DISTAL GASTRIC BODY AND ANTRUM COULD REPRESENT GASTRITIS. 6. NONSPECIFIC MILD THICKENING OF THE LEFT ADRENAL GLAND IS MORE PRONOUNCED FROM PRIOR. 6 MONTH FOLLO W-UP CT RECOMMENDED TO REASSESS.
[2020-03-29] MEDS ORDERED: traMADol 50 MG STARTER PACK 3 TAB BTL PO STA (15:45)
[2020-03-29 15:54] VITALS: PULSE 66; RESP 17
== END 2020-03-29 15:54 | disposition left against medical advice (07) ==
LOC: EC 11:36
DX: K56.609 Unspecified intestinal obstruction, unspecified as to partial versus complete obstruction (principal); E27.9 Disorder of adrenal gland, unspecified; Z53.29 Procedure and treatment not carried out because of patient's decision for other reasons; F17.200 Nicotine dependence, unspecified, uncomplicated; Z79.899 Other long term (current) drug therapy; Z90.89 Acquired absence of other organs; Z90.49 Acquired absence of other specified parts of digestive tract
CPT/HCPCS: 36415; 80053; 82150; 83605; 83690; 85025; 81001; 74177; 99284; 96374; 96375; 96361 ×3; J2405; J1885; Q9967

== ENCOUNTER 2020-04-05 14:21 | Inpatient (IN) | payer BC ==
--- NOTE | 2020-04-05 15:29 | ED ---
Abdominal Pain HPI - General Chief Complaint: Abdominal Pain Stated Complaint: Vomiting/abd pain Time Seen by Provider: 04/05/20 15:29 Source: patient Mode of arrival: ambulatory Limitations: no limitations - History of Present Illness Initial Comments: Patient is a 59-year-old female with history of ovarian cancer presenting to emergency Department with a chief complaint abdominal pain nausea vomiting. Patient states she was in emergency department 1 week ago and was diagnosed with a developing small bowel obstruction. Patient was offered admission but she refused and left AGAINST MEDICAL ADVICE. Patient states she went to [facility] and was given an enema with no relief in symptoms. Patient reports nausea and a continuous abdominal pain, nausea with multiple episodes not bilious and nonbloody vomiting. She is able to pass gas but no bowel movement. She reports 2 very small bowel movements today but nothing prior to that since Sunday. Denies any night sweats fevers or chills. No chest pain shortness of breath. Denies any urinary or vaginal symptoms. She is currently undergoing chemotherapy for ovarian cancer. Most recent chemo treatment was on 03/25/2020.. - Related Data Home Medications Medication Instructions Recorded Confirmed Pantoprazole Sodium 40 mg PO DAILY 01/12/20 04/05/20 Magnesium 200 mg PO DAILY 03/29/20 04/05/20 Metoclopramide [Reglan] 10 mg PO ACHS 03/29/20 04/05/20 Potassium Gluconate 99 mg PO DAILY 03/29/20 04/05/20 Ibuprofen [Motrin] 600 mg PO QID PRN 04/05/20 04/05/20 Prochlorperazine [Compazine] 10 mg PO QID 04/05/20 04/05/20 Allergies Allergy/AdvReac Type Severity Reaction Status Date / Time No Known Allergies Allergy Verified 04/05/20 14:57 Review of Systems ROS Statement: Those systems with pertinent positive or pertinent negative responses have been documented in the HPI. ROS Other: All systems not noted in ROS Statement are negative. Past Medical History Past Medical History: Cancer Additional Past Medical History / Comment(s): ovarian CA History of Any Multi-Drug Resistant Organisms: None Reported Past Surgical History: Appendectomy, Bowel Resection, Cholecystectomy, Hysterectomy, Orthopedic Surgery Additional Past Surgical History / Comment(s): sinus, d and c; knee scopes, spleenectomy, bowel resection Past Anesthesia/Blood Transfusion Reactions: No Reported Reaction Past Psychological History: Depression Smoking Status: Current every day smoker Past Alcohol Use History: None Reported Past Drug Use History: None Reported - Past Family History Mother Family Medical History: Cancer Father Family Medical History: Cancer General Exam Limitations: no limitations General appearance: alert, in no apparent distress Head exam: Present: atraumatic, normocephalic, normal inspection Eye exam: Present: normal appearance, PERRL, EOMI Pupils: Present: normal accommodation ENT exam: Present: normal exam, normal oropharynx, mucous membranes moist, TM's normal bilaterally, normal external ear exam Neck exam: Present: normal inspection, full ROM. Absent: tenderness Respiratory exam: Present: normal lung sounds bilaterally. Absent: respiratory distress, wheezes, rales Cardiovascular Exam: Present: regular rate, normal rhythm, normal heart sounds GI/Abdominal exam: Present: soft, tenderness. Absent: distended, guarding, rebound Extremities exam: Present: normal inspection, full ROM, normal capillary refill. Absent: tenderness Back exam: Present: normal inspection, full ROM. Absent: tenderness, CVA tenderness (R), CVA tenderness (L) Neurological exam: Present: alert, oriented X3 Psychiatric exam: Present: normal affect, normal mood Skin exam: Present: warm, dry, intact, normal color Course Vital Signs 04/05/20 04/05/20 14:53 15:57 Temperature 97.3 F L Pulse Rate 78 68 Respiratory 18 18 Rate Blood Pressure 147/82 142/84 O2 Sat by Pulse 97 98 Oximetry - Reevaluation(s) Reevaluation #1: 04/05/20 18:09 Medical records reviewed Medical Decision Making - Medical Decision Making patient is a 59-year-old female presenting to emergency Department with chief complaint abdominal pain nausea vomiting. On physical examination, patient does have somewhat of diffuse abdominal tenderness. CT obtained one week ago revea led an early developing small bowel obstruction. Patient then refused transfer or admission. KUB in the emergency department reveals a likely ileus. CBC reveals leukocytosis of 17.2 K.CMP and UA are unremarkable. Initial troponin is negative. Patient was given IV fluids, analgesia and antiemetics. On reevaluation, patient reports improvement in symptoms. She will be admitted for further medical management. Case discussed with General surgery on consult - Lab Data Result diagrams: 04/05/20 15:44 04/05/20 17:24 Lab Results 04/05/20 04/05/20 04/05/20 Range/Units 15:44 15:44 16:48 WBC 17.9 H (3.8-10.6) k/uL RBC 4.38 (3.80-5.40) m/uL Hgb 15.1 (11.4-16.0) gm/dL Hct 45.3 (34.0-46.0) % MCV 103.5 H (80.0-100.0) fL MCH 34.5 (25.0-35.0) pg MCHC 33.4 (31.0-37.0) g/dL RDW 13.8 (11.5-15.5) % Plt Count 397 (150-450) k/uL Neutrophils % 75 % Lymphocytes % 14 % Monocytes % 7 % Eosinophils % 2 % Basophils % 1 % Neutrophils # 13.5 H (1.3-7.7) k/uL Lymphocytes # 2.4 (1.0-4.8) k/uL Monocytes # 1.3 H (0-1.0) k/uL Eosinophils # 0.3 (0-0.7) k/uL Basophils # 0.2 (0-0.2) k/uL Macrocytosis Slight Sodium (137-145) mmol/L Potassium (3.5-5.1) mmol/L Chloride (98-107) mmol/L Carbon Dioxide (22-30) mmol/L Anion Gap mmol/L BUN (7-17) mg/dL Creatinine (0.52-1.04) mg/dL Est GFR (CKD-EPI)AfAm (>60 ml/min/1.73 sqM) Est GFR (CKD-EPI)NonAf (>60 ml/min/1.73 sqM) Glucose (74-99) mg/dL Calcium (8.4-10.2) mg/dL Total Bilirubin (0.2-1.3) mg/dL AST (14-36) U/L ALT (4-34) U/L Alkaline Phosphatase (38-126) U/L Troponin I <0.012 (0.000-0.034) ng/mL Total Protein (6.3-8.2) g/dL Albumin (3.5-5.0) g/dL Amylase (30-110) U/L Lipase (23-300) U/L Urine Color Yellow Urine Appearance Clear (Clear) Urine pH 5.5 (5.0-8.0) Ur Specific [place] 1.027 (1.001-1.035) Urine Protein Negative (Negative) Urine Glucose (UA) Negative (Negative) Urine Ketones 1+ H (Negative) Urine Blood Trace H (Negative) Urine Nitrite Negative (Negative) Urine Bilirubin Negative (Negative) Urine Urobilinogen <2.0 (<2.0) mg/dL Ur Leukocyte Esterase Negative (Negative) Urine RBC 2 (0-5) /hpf Urine WBC 1 (0-5) /hpf Ur Squamous Epith Cells 1 (0-4) /hpf Amorphous Sediment Occasional H (None) /hpf Urine Mucus Moderate H (None) /hpf 04/05/20 Range/Units 17:24 WBC (3.8-10.6) k/uL RBC (3.80-5.40) m/uL Hgb (11.4-16.0) gm/dL Hct (34.0-46.0) % MCV (80.0-100.0) fL MCH (25.0-35.0) pg MCHC (31.0-37.0) g/dL RDW (11.5-15.5) % Plt Count (150-450) k/uL Neutrophils % % Lymphocytes % % Monocytes % % Eosinophils % % Basophils % % Neutrophils # (1.3-7.7) k/uL Lymphocytes # (1.0-4.8) k/uL Monocytes # (0-1.0) k/uL Eosinophils # (0-0.7) k/uL Basophils # (0-0.2) k/uL Macrocytosis Sodium 135 L (137-145) mmol/L Potassium 4.2 (3.5-5.1) mmol/L Chloride 102 (98-107) mmol/L Carbon Dioxide 25 (22-30) mmol/L Anion Gap 8 mmol/L BUN 12 (7-17) mg/dL Creatinine 0.54 (0.52-1.04) mg/dL Est GFR (CKD-EPI)AfAm >90 (>60 ml/min/1.73 sqM) Est GFR (CKD-EPI)NonAf >90 (>60 ml/min/1.73 sqM) Glucose 90 (74-99) mg/dL Calcium 9.1 (8.4-10.2) mg/dL Total Bilirubin 0.5 (0.2-1.3) mg/dL AST 23 (14-36) U/L ALT 13 (4-34) U/L Alkaline Phosphatase 54 (38-126) U/L Troponin I (0.000-0.034) ng/mL Total Protein 6.5 (6.3-8.2) g/dL Albumin 3.8 (3.5-5.0) g/dL Amylase 45 (30-110) U/L Lipase 31 (23-300) U/L Urine Color Urine Appearance (Clear) Urine pH (5.0-8.0) Ur Specific [place] (1.001-1.035) Urine Protein (Negative) Urine Glucose (UA) (Negative) Urine Ketones (Negative) Urine Blood (Negative) Urine Nitrite (Negative) Urine Bilirubin (Negative) Urine Urobilinogen (<2.0) mg/dL Ur Leukocyte Esterase (Negative) Urine RBC (0-5) /hpf Urine WBC (0-5) /hpf Ur Squamous Epith Cells (0-4) /hpf Amorphous Sediment (None) /hpf Urine Mucus (None) /hpf - EKG Data EKG Comments: Incomplete right bundle-branch. Sinus rhythm. Inverted T waves in lead 3. Ventricular rate 68, OR 160, QRS 100, QTC 430. Disposition Clinical Impression: Abdominal pain, Nausea & vomiting, Ileus Disposition: ADMITTED IP TO THIS HOSP Condition: Fair Instructions (If sedation given, give patient instructions): Abdominal Pain (ED) Additional Instructions: He will be admitted Is patient prescribed a controlled substance at d/c from ED?: No Referrals: Treasure Whitaker DO [Primary Care Provider] - 1-2 days Time of Disposition: 18:11
[2020-04-05] MEDS ORDERED: SODIUM CHLORIDE 0.9% 1,000 ML IV STA (15:31)
[2020-04-05 16:10] LABS: Basophils # (A) 0.2 k/uL (0-0.2); Basophils % (A) 1 %; Eosinophils # (A) 0.3 k/uL (0-0.7); Eosinophils % (A) 2 %; HCT 45.3 % (34.0-46.0); HGB 15.1 gm/dL (11.4-16.0); Lymphocytes # (A) 2.4 k/uL (1.0-4.8); Lymphocytes % (A) 14 %; MCH 34.5 pg (25.0-35.0); MCHC 33.4 g/dL (31.0-37.0); MCV 103.5 fL (80.0-100.0); Macrocytosis Slight; Mean Platelet Volume 7.7; Monocytes # (A) 1.3 k/uL (0-1.0); Monocytes % (A) 7 %; Neutrophils # (A) 13.5 k/uL (1.3-7.7); Neutrophils % (A) 75 %; Platelet Count 397 k/uL (150-450); RBC 4.38 m/uL (3.80-5.40); RDW 13.8 % (11.5-15.5); WBC 17.9 k/uL (3.8-10.6)
[2020-04-05] MEDS ORDERED: MORPHINE SULFATE 4 MG/ML SYRINGE IVP STA (16:32)
[2020-04-05] MEDS ORDERED: ONDANSETRON 4 MG/2 ML VIAL IVP STA (16:32)
--- NOTE | 2020-04-05 16:44 | XR ---
EXAMINATION TYPE: XR KUB DATE OF EXAM: 04/05/2020 4:30 PM CLINICAL HISTORY: Nausea and vomiting. Concern for small bowel obstruction. TECHNIQUE: Upright images of the abdomen and pelvis were obtained COMPARISON: CT abdomen pelvis 03/29/2020. FINDINGS: The visualized bowel gas pattern is nonspecific, with scattered air-fluid levels. No pneumo peritoneum. No organomegaly. Lung bases are clear. Osseous structures are intact. IMPRESSION: Nonspecific bowel gas pattern with air-fluid levels. Findings may represent ileus.
[2020-04-05 17:05] LABS: Amorphous Sediment,Urine Occasional /hpf; Appearance,Urine Clear (Clear); Bilirubin,Urine Negative (Negative); Blood,Urine Trace (Negative); Color,Urine Yellow; Glucose,Urine (UA) Negative (Negative); Ketones,Urine 1+ (Negative); Leukocyte Esterase,Urine Negative (Negative); Mucus,Urine Moderate /hpf; Nitrite,Urine Negative (Negative); PH, Urine 5.5 (5.0-8.0); Protein,Urine Negative (Negative); RBC,Urine 2 /hpf (0-5); Specific Gravity,Urine 1.027 (1.001-1.035); Squamous Epithelial Cell,Urine 1 /hpf (0-4); Urobilinogen,Urine <2.0 mg/dL (<2.0); WBC,Urine 1 /hpf (0-5)
[2020-04-05 18:03] LABS: ALT 13 U/L (4-34); AST 23 U/L (14-36); African American GFR (CKD) >90 (>60 ml/min/1.73 sqM); Albumin 3.8 g/dL (3.5-5.0); Alkaline Phosphatase 54 U/L (38-126); Amylase 45 U/L (30-110); Anion Gap 8 mmol/L; Blood Urea Nitrogen 12 mg/dL (7-17); Calcium 9.1 mg/dL (8.4-10.2); Carbon Dioxide 25 mmol/L (22-30); Chloride 102 mmol/L (98-107); Glucose 90 mg/dL (74-99); Non-African American GFR(CKD) >90 (>60 ml/min/1.73 sqM); Potassium 4.2 mmol/L (3.5-5.1); Sodium 135 mmol/L (137-145); Total Bilirubin 0.5 mg/dL (0.2-1.3); Total Protein 6.5 g/dL (6.3-8.2)
[2020-04-05] MEDS ORDERED: MORPHINE SULFATE 4 MG/ML SYRINGE IV PRN (18:05)
[2020-04-05] MEDS ORDERED: ACETAMINOPHEN TAB 325 MG TAB PO PRN (18:05)
[2020-04-05] MEDS ORDERED: LORazepam 2 MG/ML INJ IV PRN (18:05)
[2020-04-05] MEDS ORDERED: NALOXONE 0.4 MG/ML 1 ML VIAL IV PRN (18:05)
[2020-04-05] MEDS ORDERED: IBUPROFEN 400 MG TAB PO PRN (18:05)
[2020-04-05] MEDS ORDERED: HYDROmorphone 1 MG/ML 1 ML SYRINGE IVP PRN (18:05)
[2020-04-05] MEDS: HYDROmorphone 0.5 MG/0.5 ML SYRINGE IVP PRN (19:50)
[2020-04-05] MEDS: SODIUM CHLORIDE 0.9% 1,000 ML IV SCH (19:59)
[2020-04-05] MEDS ORDERED: TEMAZEPAM 15 MG CAP PO PRN (21:53)
[2020-04-05] MEDS ORDERED: HYDROcodone/APAP 5-325MG 1 EACH TAB PO PRN (21:53)
[2020-04-05] MEDS: PANTOPRAZOLE 40 MG/10 ML VIAL IVP SCH (23:10)
[2020-04-05] MEDS: IOPAMIDOL CONTRAST (ORAL USE) VIAL PO PRN (23:13)
[2020-04-05] MEDS: ONDANSETRON 4 MG/2 ML VIAL IVP PRN (23:21)
--- NOTE | 2020-04-05 23:35 | HP ---
HISTORY AND PHYSICAL DATE OF SERVICE: 04/05/2020 CHIEF COMPLAINTS: Abdominal pain and vomiting. HISTORY OF PRESENT ILLNESS: This 59-year-old woman with a past medical history of multiple medical problems, including ovarian cancer, history of appendectomy, bowel resection, cholecystectomy, history of extensive abdominal surgery, depression, history of nicotine dependence, being followed by Dr. Whitaker in the outpatient setting, is also receiving chemotherapy from [facility]. The patient apparently came to [facility] a week ago with complaints of abdominal pain. A CT scan of the abdomen and pelvis was done which showed evidence of hyperemic loops and was diagnosed with developing small bowel obstruction. The patient was offered admission but refused, and the patient left AGAINST MEDICAL ADVICE. The patient went to [facility] in the ER and enema was offered, but the patient did not wait for the enema because there were four CODE BLUES going on there apparently. Because of continued symptoms, the patient came to [facility] and was admitted for further evaluation. The patient had multiple episodes of bilious and nonbilious vomiting. There is no history of any fever, rigor or chills. No history of headache, loss of consciousness, seizures at this time. PAST MEDICAL HISTORY: History of ovarian cancer with extensive surgery, as mentioned, appendectomy, bowel resection, cholecystectomy, hysterectomy, history of DJD. MEDICATIONS: Medications prior to admission include Compazine, potassium gluconate, Protonix, Reglan, magnesium, Motrin. ALLERGIES: NONE. FAMILY HISTORY: History of cancer in the family. SOCIAL HISTORY: Previous history of smoking. No history of alcohol intake. REVIEW OF SYSTEMS: ENT: No diminished hearing. No diminished vision. CARDIOVASCULAR SYSTEM: No angina, palpitations. RESPIRATORY SYSTEM: As mentioned earlier. GI: As mentioned earlier. : No dysuria or retention. NERVOUS SYSTEM: No numbness, weakness. ALLERGY/IMMUNOLOGY: No asthma, hayfever. MUSCULOSKELETAL: As mentioned earlier. HEMATOLOGY/ONCOLOGY: No history of anemia. ENDOCRINE: No history of diabetes, hypothyroidism. CONSTITUTIONAL: As mentioned earlier. DERMATOLOGY: Negative. RHEUMATOLOGY: Negative. PSYCHIATRY: As mentioned earlier. PHYSICAL EXAMINATION: Patient is alert and oriented x3. The pulse is 78, blood pressure 120/83, respirations 16, temperature 98.4, pulse ox 98% on room air. HEENT: Conjunctivae normal. NECK: No jugular venous distention. CARDIOVASCULAR SYSTEM: S1, S2 muffled. RESPIRATORY SYSTEM: Breath sounds diminished at the bases. Scattered rhonchi and crackles. ABDOMEN: Soft. Slightly tense. Mild diffuse tenderness present. No guarding. No rigidity. Bowel sounds diminished. No ascites. LEGS: No edema. No swelling. NERVOUS SYSTEM: Higher functions as mentioned earlier. Moves all 4 limbs. No focal motor or sensory deficit. LYMPHATICS: No lymph node palpable in neck, axillae or groin. SKIN: No ulcer, rash, bleeding. JOINTS: No active deforming arthropathy. LABS/IMAGING: WBC 17.9. Sodium is 135. UA noted. Otherwise, the KUB x-ray shows nonspecific bowel gas pattern with air-fluid levels, probably ileus. ASSESSMENT: 1. Abdominal pain and distention and vomiting, possibly abdominal ileus. 2. Increased white count. 3. Increased mean corpuscular volume. 4. Hyponatremia. 5. Ovarian cancer history with extensive surgery. 6. History of bowel resection and appendectomy. 7. History of cholecystectomy. 8. History of depression. 9. Nicotine dependence. 10.History of degenerative joint disease. 11.History of splenectomy. 12.FULL CODE. RECOMMENDATIONS AND DISCUSSION: In this 59-year-old woman who presented with multiple complex medical issues, we will monitor the patient closely, continue the current medications, continue with symptomatic treatment. Surgical evaluation. CT scan of the abdomen and pelvis with only p.o. contrast; no IV contrast. I would recommend empiric antibiotics. Guarded prognosis because of multiple complex medical issues. Further recommendations to follow. DVT prophylaxis. We will continue with the previous home medications, also. MMODL / IJN: [id number] /
[2020-04-05] MEDS: PIPERACILLIN-TAZOBACTAM 3.375 GM in SODIUM CHLORIDE 0.9% 100 ML IVPB SCH (23:51)
[2020-04-06] MEDS: IOPAMIDOL CONTRAST (ORAL USE) VIAL PO PRN (00:31)
[2020-04-06] MEDS: HYDROmorphone 0.5 MG/0.5 ML SYRINGE IVP PRN ×6 (01:30→20:48)
--- NOTE | 2020-04-06 02:14 | CT ---
EXAM: CT Abdomen and Pelvis Without Intravenous Contrast CLINICAL HISTORY: Reason: Ileus Oral only got 1 drink down then vomited TECHNIQUE: Axial computed tomography images of the abdomen and pelvis without intravenous contrast. CTDI is 8.43 mGy and DLP is 444.6 mGy-cm. This CT exam was performed using one or more of the following dose reduction techniques: automated exposure control, adjustment of the mA and/or kV according to patient size, and/or use of iterative reconstruction technique. COMPARISON: 03/29/2020 FINDINGS: Lung bases: Mild basilar atelectasis, increased since the prior. ABDOMEN: Liver: Unremarkable. Gallbladder and bile ducts: Cholecystectomy and mild central biliary ectasia, stable. No ductal dilation. Pancreas: Unremarkable. No ductal dilation. Spleen: Splenectomy. As on the prior. Adrenals: Stable mildly nodular left adrenal gland. Kidneys and ureters: Unremarkable. No obstructing stones. No hydronephrosis. Stomach and bowel: Oral contrast within the stomach, jejunal loops including some of the dilated jejunal loops in the left abdomen. Similar/increased dilated small bowel loops in the left abdomen with mild wall thickening. Associated mesenteric edema and interloop fluid, similar or mildly increased. Difficult to follow the loops. Query transition point in the left pelvis. Small bowel sutures in the right pelvis. PELVIS: Appendix: Appendix not visualized. No secondary findings of acute appendicitis. Bladder: Query small bladder diverticulum near the dome No stones. Reproductive: Absent uterus. ABDOMEN and PELVIS: Intraperitoneal space: Unremarkable. No free air. No significant fluid collection. Bones/joints: No acute fracture. No dislocation. Soft tissues: Unremarkable. Vasculature: Moderate atherosclerotic calcifications of the aortoiliac arteries. No abdominal aortic aneurysm. Lymph nodes: Unremarkable. No enlarged lymph nodes. IMPRESSION: 1. Similar/increased dilated small bowel loops in the left abdomen with mild wall thickening. Associated mesenteric edema and interloop fluid. Query transition point in the left pelvis. Findings may represent bowel obstruction with transition point in the left pelvis. Closed loop or possible ischemic component not excluded. As on the prior, also consider enteritis. 2. Other incidental findings as above. <MYCVCSECTION> Communications: 04/06/20 02:26 Call Doctor Regarding Above results, called SHEILA Sotomayor
[2020-04-06] MEDS: SODIUM CHLORIDE 0.9% 1,000 ML IV SCH ×2 (08:47→11:16)
[2020-04-06] MEDS: PIPERACILLIN-TAZOBACTAM 3.375 GM in SODIUM CHLORIDE 0.9% 100 ML IVPB SCH ×3 (08:47→23:29)
[2020-04-06] MEDS: PANTOPRAZOLE 40 MG/10 ML VIAL IVP SCH ×2 (08:47→20:47)
[2020-04-06] MEDS ORDERED: IOPAMIDOL CONTRAST (ORAL USE) VIAL PO PRN (10:39)
[2020-04-06] MEDS: KETOROLAC 15 MG/ML 1 ML VIAL IVP PRN ×3 (11:22→23:28)
--- NOTE | 2020-04-06 11:56 | P.GSCN ---
History of Present Illness Consult date: 04/06/20 History of present illness: CHIEF COMPLAINT: abdominal pain HISTORY OF PRESENT ILLNESS: This is a 59-year-old female with a known history of ovarian cancer Diagnosed in 2018 who is status post total hysterectomy, appendectomy,bowel resection, cholecystectomy and splenectomy She is currently undergoing chemotherapy through [facility]. She's also had prior history of bowel obstruction that was treated conservatively. She reports over the last week she's had decrease in appetite vomiting and abdominal pain. She was vomiting last night after taking in the oral contrast. She did report 2 small bowel movements yesterday. Patient was in the hospital about a week ago and at that time had a CAT scan done with concerns of developing small bowel obstruction. The patient did leave AGAINST MEDICAL ADVICE. CAT scan Of the abdomen and pelvis Showing similar increased dilated small bowel loops in the left abdomen with mild wall thickening. Associated mesenteric edema and interloop fluid. Query transition point in the left pelvis. Findings may represent bowel ob struction with transition point in the left pelvis. Closed-loop or possible ischemic component not excluded. Patient has been admitted to the hospital for possible bowel obstruction. She did have a large amount of emesis with the contrast yesterday.Patient denies any fever, chills or sweats. PAST MEDICAL HISTORY: See list. PAST SURGICAL HISTORY: See list. MEDICATIONS: See list. ALLERGIES: See list. SOCIAL HISTORY: No illicit drug use. REVIEW OF SYSTEMS: CONSTITUTIONAL: Denies fever or chills. HEENT: Denies blurred vision, vision changes, or eye pain. Denies hemoptysis CARDIOVASCULAR: Denies chest pain or pressure. RESPIRATORY: No shortness of breath. GASTROINTESTINAL: See HPI for pertinent findings HEMATOLOGIC: Denies bleeding disorders. GENITOURINARY: Denies any blood in urine or increased urinary frequency. SKIN: Denies pruitis. Denies rash. PHYSICAL EXAM: VITAL SIGNS: Reviewed GENERAL: Well-developed in no acute distress. HEENT: No sclera icterus. Extraocular movements grossly intact. Moist buccal mucosa. Head is atraumatic, normocephalic. No nasal drainage. ABDOMEN: Soft. Nondistended. Mild diffuse tenderness NEUROLOGIC: Alert and oriented. Cranial nerves II through XII grossly intact. LABORATORY DATA: WBC 17.9 Creatinine 0.5 for LFTs and lipase normal UA negative for infection IMAGING: Computed tomography scan abdomen and pelvis Showing similar increased dilated small bowel loops in the left abdomen with mild wall thickening. Associated m esenteric edema and interloop fluid. Query transition point in the left pelvis. Findings may represent bowel obstruction with transition point in the left pelvis. Closed-loop or possible ischemic component not excluded. ASSESSMENT: 1. Small bowel obstruction 2. History of ovarian cancer Diagnosed in 2018. Status post surgery and is currently on chemotherapy 3. Status post hysterectomy, bowel resection, appendectomy, cholecystectomy and splenectomy in 2018 4. Prior history of bowel obstruction PLAN: -Insert NG tube for decompression -Keep patient nothing by mouth -Increase IV fluids 125 mL an hour -Continue with antibiotics -Recommend to repeat computed tomography scan of the abdomen and pelvis with oral contrast. Patient Was unable to take in the full contrast. However, at th is time patient is refusing Repeat CAT scan. -Continue pain medications as needed -GI prophylaxis Protonix and DVT prophylaxis subcu heparin Thank you for this consultation Physician Technical Buyer note has been reviewed by physician. Signing provider agrees with the documented findings, assessment, and plan of care. Past Medical History Past Medical History: Cancer Additional Past Medical History / Comment(s): ovarian CA History of Any Multi-Drug Resistant Organisms: None Reported Past Surgical History: Appendectomy, Bowel Resection, Cholecystectomy, Hysterectomy, Orthopedic Surgery Additional Past Surgical History / Comment(s): sinus, d and c; knee scopes, spleenectomy, bowel resection Past Anesthesia/Blood Transfusion Reactions: No Reported Reaction Past Psychological History: No Psychological Hx Reported Smoking Status: Current every day smoker Past Alcohol Use History: None Reported Additional Past Alcohol Use History / Comment(s): has smoked for about 40 years 1 pkg a day Past Drug Use History: None Reported - Past Family History Mother Family Medical History: Cancer, Dementia Additional Family Medical History / Comment(s): lung CA Father Family Medical History: Cancer, COPD Additional Family Medical History / Comment(s): lung CA Medications and Allergies Home Medications Medication Instructions Recorded Confirmed Type Pantoprazole Sodium 40 mg PO DAILY 01/12/20 04/05/20 History Magnesium 200 mg PO DAILY 03/29/20 04/05/20 History Metoclopramide [Reglan] 10 mg PO ACHS 03/29/20 04/05/20 History Potassium Gluconate 99 mg PO DAILY 03/29/20 04/05/20 History Ibuprofen [Motrin] 600 mg PO QID PRN 04/05/20 04/05/20 History Prochlorperazine [Compazine] 10 mg PO QID 04/05/20 04/05/20 History Allergies Allergy/AdvReac Type Severity Reaction Status Date / Time No Known Allergies Allergy Verified 04/05/20 14:57 Surgical - Exam Vital Signs Temp Pulse Resp BP Pulse Ox 97.3 F L 78 18 147/82 97 04/05/20 14:53 04/05/20 14:53 04/05/20 14:53 04/05/20 14:53 04/05/20 14:53 Results - Labs 04/05/20 15:44 04/05/20 17:24 Abnormal Lab Results - Last 24 Hours (Table) 04/05/20 04/05/20 04/05/20 Range/Units 15:44 16:48 17:24 WBC 17.9 H (3.8-10.6) k/uL MCV 103.5 H (80.0-100.0) fL Neutrophils # 13.5 H (1.3-7.7) k/uL Monocytes # 1.3 H (0-1.0) k/uL Sodium 135 L (137-145) mmol/L Urine Ketones 1+ H (Negative) Urine Blood Trace H (Negative) Amorphous Sediment Occasional H (None) /hpf Urine Mucus Moderate H (None) /hpf Diabetes panel 04/05/20 Range/Units 17:24 Sodium 135 L (137-145) mmol/L Potassium 4.2 (3.5-5.1) mmol/L Chloride 102 (98-107) mmol/L Carbon Dioxide 25 (22-30) mmol/L BUN 12 (7-17) mg/dL Creatinine 0.54 (0.52-1.04) mg/dL Glucose 90 (74-99) mg/dL Calcium 9.1 (8.4-10.2) mg/dL AST 23 (14-36) U/L ALT 13 (4-34) U/L Alkaline Phosphatase 54 (38-126) U/L Total Protein 6.5 (6.3-8.2) g/dL Albumin 3.8 (3.5-5.0) g/dL Calcium panel 04/05/20 Range/Units 17:24 Calcium 9.1 (8.4-10.2) mg/dL Albumin 3.8 (3.5-5.0) g/dL Pituitary panel 04/05/20 Range/Units 17:24 Sodium 135 L (137-145) mmol/L Potassium 4.2 (3.5-5.1) mmol/L Chloride 102 (98-107) mmol/L Carbon Dioxide 25 (22-30) mmol/L BUN 12 (7-17) mg/dL Creatinine 0.54 (0.52-1.04) mg/dL Glucose 90 (74-99) mg/dL Calcium 9.1 (8.4-10.2) mg/dL Adrenal panel 04/05/20 Range/Units 17:24 Sodium 135 L (137-145) mmol/L Potassium 4.2 (3.5-5.1) mmol/L Chloride 102 (98-107) mmol/L Carbon Dioxide 25 (22-30) mmol/L BUN 12 (7-17) mg/dL Creatinine 0.54 (0.52-1.04) mg/dL Glucose 90 (74-99) mg/dL Calcium 9.1 (8.4-10.2) mg/dL Total Bilirubin 0.5 (0.2-1.3) mg/dL AST 23 (14-36) U/L ALT 13 (4-34) U/L Alkaline Phosphatase 54 (38-126) U/L Total Protein 6.5 (6.3-8.2) g/dL Albumin 3.8 (3.5-5.0) g/dL
[2020-04-06] MEDS: HEPARIN SODIUM,PORCINE 5,000 UNIT/ML 1 ML VIAL SQ SCH ×2 (12:44→20:47)
--- NOTE | 2020-04-06 13:10 | P.PN ---
Subjective 59-year-old the female with a history of ovarian cancer and multiple other abdominal surgeries in the past came in for bowel obstruction patient does have a transitioned point usage evaluated the patient they treating her conservatively. Patient is a concern about ischemic bowel at the transition point because of which patient was started on antibiotics which will be continued is being treated for years partial small bowel obstruction. NG tube is being ordered at this time. Patient is on IV fluids. Constitutional: Denied any fatigue denied any fever. Cardio vascular: denied any chest pain, palpitations Gastrointestinal nausea and vomiting improved Pulmonary: Denied any shortness of breath cough Neurologic denied any new focal deficits All inpatient medications were reviewed and appropriate changes in these medications as dictated in the interval history and assessment and plan. Objective - Vital Signs Vital signs: Vital Signs Temp 97.8 F 04/06/20 12:32 Pulse 62 04/06/20 12:32 Resp 16 04/06/20 12:43 BP 142/77 04/06/20 12:32 Pulse Ox 95 04/06/20 12:43 Intake & Output 04/05/20 04/06/20 04/06/20 18:59 06:59 18:59 Intake Total 750 Balance 750 Weight 63.957 kg 63.503 kg Intake: Intake, IV Titration 750 Amount Sodium Chloride 0.9% 1, 750 000 ml @ 75 mls/hr IV . [id number] [facility] Rx#:[id number] Other: Voiding Method Toilet Toilet # Voids 2 1 - Exam PHYSICAL EXAMINATION: GENERAL: The patient is alert and oriented x3, not in any acute distress. Well developed, well nourished. HEENT: Pupils are round and equally reacting to light. EOMI. No scleral icterus. No conjunctival pallor. Normocephalic, atraumatic. No pharyngeal erythema. No thyromegaly. CARDIOVASCULAR: S1 and S2 present. No murmurs, rubs, or gallops. PULMONARY: Chest is clear to auscultation, no wheezing or crackles. ABDOMEN: Soft, mild diffuse tenderness. Bowel sounds are present MUSCULOSKELETAL: No joint swelling or deformity. EXTREMITIES: No cyanosis, clubbing, or pedal edema. NEUROLOGICAL: Gross neurological examination did not reveal any focal deficits. SKIN: No rashes. - Labs CBC & Chem 7: 04/05/20 15:44 10/19/20 17:24 Labs: Abnormal Lab Results - Last 24 Hours (Table) 04/05/20 04/05/20 04/05/20 Range/Units 15:44 16:48 17:24 WBC 17.9 H (3.8-10.6) k/uL MCV 103.5 H (80.0-100.0) fL Neutrophils # 13.5 H (1.3-7.7) k/uL Monocytes # 1.3 H (0-1.0) k/uL Sodium 135 L (137-145) mmol/L Urine Ketones 1+ H (Negative) Urine Blood Trace H (Negative) Amorphous Sediment Occasional H (None) /hpf Urine Mucus Moderate H (None) /hpf Assessment and Plan Plan: - small bowel obstruction: Further management as per neurosurgery patient will continued on IV fluids and NG tube is being ordered at this time patient will be started on nonsteroidal anti-intermittent medications to avoid opiates for pain. -Ovarian cancer is status post surgery and presently on chemotherapy -Leukocytosis: May be reactive secondary to bowel obstruction although I cannot completely rule out ischemic colitis because of which I'll continue the antibiotics -Hypovolemic hyponatremia expected to improve with IV fluids
[2020-04-07 05:57] LABS: HCT 40.3 % (34.0-46.0); MCH 34.6 pg (25.0-35.0); MCHC 32.2 g/dL (31.0-37.0); MCV 107.3 fL (80.0-100.0); Macrocytosis Moderate; Mean Platelet Volume 8.2; Platelet Count 330 k/uL (150-450); RBC 3.75 m/uL (3.80-5.40); RDW 13.8 % (11.5-15.5); WBC 12.8 k/uL (3.8-10.6)
[2020-04-07 06:08] LABS: African American GFR (CKD) >90 (>60 ml/min/1.73 sqM); Anion Gap 11 mmol/L; Blood Urea Nitrogen 14 mg/dL (7-17); Calcium 8.6 mg/dL (8.4-10.2); Carbon Dioxide 17 mmol/L (22-30); Chloride 104 mmol/L (98-107); Non-African American GFR(CKD) >90 (>60 ml/min/1.73 sqM); Potassium 3.8 mmol/L (3.5-5.1); Sodium 132 mmol/L (137-145)
[2020-04-07 06:15] LABS: Glucose 46 mg/dL (74-99)
[2020-04-07] MEDS ORDERED: DEXTROSE 50% SYRINGE 50 ML IVP ONE (06:15)
[2020-04-07] MEDS ORDERED: DEXTROSE 50% SYRINGE 50 ML IVP STA (06:18)
[2020-04-07 06:23] LABS: Glucose,Whole Blood 47 mg/dL (75-99)
[2020-04-07] MEDS ORDERED: DEXTROSE 5% IN WATER 225 ML IV ONE (06:39)
[2020-04-07 06:40] LABS: Glucose,Whole Blood 142 mg/dL (75-99)
[2020-04-07] MEDS: KETOROLAC 15 MG/ML 1 ML VIAL IVP PRN ×4 (06:42→20:02)
[2020-04-07] MEDS: DEXTROSE 5%-0.9% NACL 1,000 ML IV SCH ×3 (06:57→23:12)
[2020-04-07 07:40] LABS: Glucose,Whole Blood 118 mg/dL (75-99)
[2020-04-07] MEDS: ONDANSETRON 4 MG/2 ML VIAL IVP PRN ×2 (09:24→20:02)
[2020-04-07] MEDS: HEPARIN SODIUM,PORCINE 5,000 UNIT/ML 1 ML VIAL SQ SCH ×2 (09:28→20:02)
[2020-04-07] MEDS: PANTOPRAZOLE 40 MG/10 ML VIAL IVP SCH ×2 (09:29→20:01)
[2020-04-07] MEDS: PIPERACILLIN-TAZOBACTAM 3.375 GM in SODIUM CHLORIDE 0.9% 100 ML IVPB SCH ×3 (09:58→23:12)
--- NOTE | 2020-04-07 13:50 | P.PN ---
Subjective Progress Note Date: 04/07/20 CHIEF COMPLAINT: Abdominal pain HISTORY OF PRESENT ILLNESS: Patient called for small bowel obstruction. She did have her NG tube in place. She had 300 greenish output through NG tube through the night. Patient reports some improvement in her abdominal discomfort. She has been passing small amount of gas and also had some nausea this morning. Later in the morning nursing staff called NG tube did come out by accident. We will monitor patient with NG tube out. She is afebrile. White count 12.8 s odium 132. She did have some hypoglycemia blood sugar of 46. Medicine is adjusted fluids containing dextrose. PHYSICAL EXAM: VITAL SIGNS: Reviewed. GENERAL: Well-developed in no acute distress. HEENT: No sclera icterus. Extraocular movements grossly intact. Moist buccal mucosa. Head is atraumatic, normocephalic. ABDOMEN: Soft. Mildly distended. Mild diffuse tenderness NEUROLOGIC: Alert and oriented. Cranial nerves II through XII grossly intact. ASSESSMENT: 1. Small bowel obstruction 2. History of ovarian cancer Diagnosed in 2018. Status post surgery and is currently on chemotherapy 3. Status post hysterectomy, bowel resection, appendectomy, cholecystectomy and splenectomy in 2018 4. Prior history of bowel obstruction PLAN: -Okay to keep NG tube out -Keep patient nothing by mouth -Continue IV fluids -Antibiotics per medicine -GI and DVT prophylaxis Physician Cylinder Block Mechanic note has been reviewed by physician. Signing provider agrees with the documented findings, assessment, and plan of care. Objective - Vital Signs Vital signs: Vital Signs Temp 98.0 F 04/07/20 12:03 Pulse 63 04/07/20 12:03 Resp 16 04/07/20 12:03 BP 126/72 04/07/20 12:03 Pulse Ox 95 04/07/20 12:03 Intake & Output 04/06/20 04/07/20 04/07/20 18:59 06:59 18:59 Intake Total 30 1450 Output Total 100 1600 Balance -70 -150 Intake: Intake, IV Titration 1450 Amount Piperacillin-Tazobactam 3 200 .375 gm In Sodium Chloride 0.9% 100 ml @ 25 mls/hr IVPB Q8HR [facility] Rx# :[id number] Sodium Chloride 0.9% 1, 1250 000 ml @ 125 mls/hr IV . Q8H [facility] Rx#:[id number] Oral 30 Output: Gastric Drainage 1050 Urine 100 550 Other: Voiding Method Toilet # Voids 1 1 1 - Labs CBC & Chem 7: 04/07/20 05:28 04/07/20 05:28 Labs: Abnormal Lab Results - Last 24 Hours (Table) 04/07/20 04/07/20 04/07/20 Range/Units 05:28 05:28 06:18 WBC 12.8 H (3.8-10.6) k/uL RBC 3.75 L (3.80-5.40) m/uL MCV 107.3 H (80.0-100.0) fL Sodium 132 L (137-145) mmol/L Carbon Dioxide 17 L (22-30) mmol/L Glucose 46 L* (74-99) mg/dL POC Glucose (mg/dL) 47 L (75-99) mg/dL 04/07/20 04/07/20 Range/Units 06:38 07:38 WBC (3.8-10.6) k/uL RBC (3.80-5.40) m/uL MCV (80.0-100.0) fL Sodium (137-145) mmol/L Carbon Dioxide (22-30) mmol/L Glucose (74-99) mg/dL POC Glucose (mg/dL) 142 H 118 H (75-99) mg/dL
[2020-04-07] MEDS: MORPHINE SULFATE 2 MG/ML SYRINGE IVP PRN ×3 (14:44→23:12)
--- NOTE | 2020-04-07 14:46 | P.PN ---
Subjective 59-year-old the female with a history of ovarian cancer and multiple other abdominal surgeries in the past came in for bowel obstruction patient does have a transitioned point usage evaluated the patient they treating her conservatively. Patient is a concern about ischemic bowel at the transition point because of which patient was started on antibiotics which will be continued is being treated for years partial small bowel obstruction. NG tube is being ordered at this time. Patient is on IV fluids. 04/07/2020 Patient had an NG tube significant drainage yesterday. Patient NG tube came out still nauseous a bit today patient is passing gas does have good bowel sounds. Constitutional: Denied any fatigue denied any fever. Cardio vascular: denied any chest pain, palpitations Gastrointestinal as mentioned in interval history Pulmonary: Denied any shortness of breath cough Neurologic denied any new focal deficits All inpatient medications were reviewed and appropriate changes in these medications as dictated in the interval history and assessment and plan. Objective - Vital Signs Vital signs: Vital Signs Temp 98.0 F 04/07/20 12:03 Pulse 63 04/07/20 12:03 Resp 16 04/07/20 12:03 BP 126/72 04/07/20 12:03 Pulse Ox 95 04/07/20 12:03 Intake & Output 04/06/20 04/07/20 04/07/20 18:59 06:59 18:59 Intake Total 30 1450 Output Total 100 1600 Balance -70 -150 Intake: Intake, IV Titration 1450 Amount Piperacillin-Tazobactam 3 200 .375 gm In Sodium Chloride 0.9% 100 ml @ 25 mls/hr IVPB Q8HR [facility] Rx# :[id number] Sodium Chloride 0.9% 1, 1250 000 ml @ 125 mls/hr IV . Q8H [facility] Rx#:[id number] Oral 30 Output: Gastric Drainage 1050 Urine 100 550 Other: Voiding Method Toilet # Voids 1 1 1 - Exam PHYSICAL EXAMINATION: GENERAL: The patient is alert and oriented x3, not in any acute distress. Well developed, well nourished. HEENT: Pupils are round and equally reacting to light. EOMI. No scleral icterus. No conjunctival pallor. Normocephalic, atraumatic. No pharyngeal erythema. No thyromegaly. CARDIOVASCULAR: S1 and S2 present. No murmurs, rubs, or gallops. PULMONARY: Chest is clear to auscultation, no wheezing or crackles. ABDOMEN: Soft, mild diffuse tenderness. Bowel sounds are present MUSCULOSKELETAL: No joint swelling or deformity. EXTREMITIES: No cyanosis, clubbing, or pedal edema. NEUROLOGICAL: Gross neurological examination did not reveal any focal deficits. SKIN: No rashes. - Labs CBC & Chem 7: 04/07/20 05:28 04/07/20 05:28 Labs: Abnormal Lab Results - Last 24 Hours (Table) 04/07/20 04/07/20 04/07/20 Range/Units 05:28 05:28 06:18 WBC 12.8 H (3.8-10.6) k/uL RBC 3.75 L (3.80-5.40) m/uL MCV 107.3 H (80.0-100.0) fL Sodium 132 L (137-145) mmol/L Carbon Dioxide 17 L (22-30) mmol/L Glucose 46 L* (74-99) mg/dL POC Glucose (mg/dL) 47 L (75-99) mg/dL 04/07/20 04/07/20 Range/Units 06:38 07:38 WBC (3.8-10.6) k/uL RBC (3.80-5.40) m/uL MCV (80.0-100.0) fL Sodium (137-145) mmol/L Carbon Dioxide (22-30) mmol/L Glucose (74-99) mg/dL POC Glucose (mg/dL) 142 H 118 H (75-99) mg/dL Assessment and Plan Plan: - small bowel obstruction: Patient is still nauseous but does have good bowel sounds and passing gas NG tube came out because he gets symptoms of nausea we may need to reinsert the NG tube any with IV fluids. Prasad- -Ovarian cancer is status post surgery and presently on chemotherapy -Leukocytosis: May be reactive secondary to bowel obstruction although I cannot completely rule out ischemic colitis because of which I'll continue the antibiotics -Hyponatremia secondary to D5 0.25 saline which was switched to D5 normal saline
[2020-04-07 23:09] LABS: Glucose,Whole Blood 127 mg/dL (75-99)
[2020-04-08] MEDS: KETOROLAC 15 MG/ML 1 ML VIAL IVP PRN ×4 (02:12→22:09)
[2020-04-08] MEDS: DEXTROSE 5%-0.9% NACL 1,000 ML IV SCH ×4 (06:26→23:38)
[2020-04-08] MEDS: MORPHINE SULFATE 2 MG/ML SYRINGE IVP PRN ×4 (06:26→23:23)
[2020-04-08] MEDS: PIPERACILLIN-TAZOBACTAM 3.375 GM in SODIUM CHLORIDE 0.9% 100 ML IVPB SCH ×3 (08:13→23:24)
[2020-04-08] MEDS: PANTOPRAZOLE 40 MG/10 ML VIAL IVP SCH ×2 (08:13→22:04)
[2020-04-08] MEDS: HEPARIN SODIUM,PORCINE 5,000 UNIT/ML 1 ML VIAL SQ SCH ×2 (08:15→22:15)
[2020-04-08] MEDS: ONDANSETRON 4 MG/2 ML VIAL IVP PRN ×3 (08:16→23:41)
--- NOTE | 2020-04-08 14:25 | P.PN ---
Subjective 59-year-old the female with a history of ovarian cancer and multiple other abdominal surgeries in the past came in for bowel obstruction patient does have a transitioned point usage evaluated the patient they treating her conservatively. Patient is a concern about ischemic bowel at the transition point because of which patient was started on antibiotics which will be continued is being treated for years partial small bowel obstruction. NG tube is being ordered at this time. Patient is on IV fluids. 04/07/2020 Patient had an NG tube significant drainage yesterday. Patient NG tube came out still nauseous a bit today patient is passing gas does have good bowel sounds. 04/08/2020 Patient clinical condition has worsened has become more sick and started throwing up again because of which NG tube was put in again. Drained about 800 mL@with NG tube placement. Patient is presently having an NG tube and is on 1 25 mL of D5 normal saline. Constitutional: Denied any fatigue denied any fever. Cardio vascular: denied any chest pain, palpitations Gastrointestinal as mentioned in interval history Pulmonary: Denied any shortness of breath cough Neurologic denied any new focal deficits All inpatient medications were reviewed and appropriate changes in these medications as dictated in the interval history and assessment and plan. Objective - Vital Signs Vital signs: Vital Signs Temp 97.7 F 04/08/20 08:29 Pulse 54 L 04/08/20 08:29 Resp 28 H 04/08/20 08:29 BP 146/77 04/08/20 08:29 Pulse Ox 94 L 04/08/20 08:29 Intake & Output 04/07/20 04/08/20 04/08/20 18:59 06:59 18:59 Intake Total 1989 Output Total 500 760 100 Balance -500 1230 -100 Intake: Intake, IV Titration 1350 Amount Dextrose 5%-0.9% NaCl 1, 1250 000 ml @ 125 mls/hr IV . Q8H [facility] Rx#:[id number] Piperacillin-Tazobactam 3 100 .375 gm In Sodium Chloride 0.9% 100 ml @ 25 mls/hr IVPB Q8HR [facility] Rx# :[id number] Oral 640 Output: Gastric Drainage 450 Urine 500 200 Emesis 110 Oral Regurgitation 100 Other: # Voids 2 1 # Emeses 1 - Exam PHYSICAL EXAMINATION: GENERAL: The patient is alert and oriented x3, not in any acute distress. Well developed, well nourished. HEENT: Pupils are round and equally reacting to light. EOMI. No scleral icterus. No conjunctival pallor. Normocephalic, atraumatic. No pharyngeal erythema. No thyromegaly. CARDIOVASCULAR: S1 and S2 present. No murmurs, rubs, or gallops. PULMONARY: Chest is clear to auscultation, no wheezing or crackles. ABDOMEN: Soft, mild diffuse tenderness. Bowel sounds are present, patient has an NG tube MUSCULOSKELETAL: No joint swelling or deformity. EXTREMITIES: No cyanosis, clubbing, or pedal edema. NEUROLOGICAL: Gross neurological examination did not reveal any focal deficits. SKIN: No rashes. - Labs CBC & Chem 7: 04/07/20 05:28 04/07/20 05:28 Labs: Abnormal Lab Results - Last 24 Hours (Table) 04/07/20 Range/Units 23:07 POC Glucose (mg/dL) 127 H (75-99) mg/dL Assessment and Plan Plan: - small bowel obstruction: Continue with NG tube decompression continue with IV fluids and recheck this in metabolic profile . -Ovarian cancer is status post surgery and presently on chemotherapy -Leukocytosis: May be reactive secondary to bowel obstruction although I cannot completely rule out ischemic colitis because of which I'll continue the antibiotics -Hyponatremia secondary to D5 0.25 saline which was switched to D5 normal saline, which improved now
[2020-04-08 14:30] LABS: ALT 10 U/L (4-34); AST 21 U/L (14-36); African American GFR (CKD) >90 (>60 ml/min/1.73 sqM); Albumin 2.8 g/dL (3.5-5.0); Alkaline Phosphatase 48 U/L (38-126); Anion Gap 3 mmol/L; Blood Urea Nitrogen 4 mg/dL (7-17); Calcium 8.2 mg/dL (8.4-10.2); Carbon Dioxide 26 mmol/L (22-30); Chloride 106 mmol/L (98-107); Glucose 104 mg/dL (74-99); Non-African American GFR(CKD) >90 (>60 ml/min/1.73 sqM); Potassium 3.6 mmol/L (3.5-5.1); Sodium 135 mmol/L (137-145); Total Bilirubin 0.4 mg/dL (0.2-1.3); Total Protein 5.4 g/dL (6.3-8.2)
--- NOTE | 2020-04-08 15:09 | P.PN ---
Subjective Progress Note Date: 04/08/20 CHIEF COMPLAINT: Abdominal pain HISTORY OF PRESENT ILLNESS: Patient followed for small bowel obstruction. Patient's NG tube came out yesterday. But through the night she had increase in pain with nausea and vomiting. NG tube had to be reinserted she had 6 250 ML out per NG tube. She is passing gas. Nausea is improved. Her pain has shown improvement with the insertion of NG tube. She is afebrile. WBC 12.8 PHYSICAL EXAM: VITAL SIGNS: Reviewed. GENERAL: Well-developed in no acute distress. HEENT: No sclera icterus. Extraocular movements grossly intact. Moist buccal mucosa. Head is atraumatic, normocephalic. ABDOMEN: Soft. Mildly distended. Mild diffuse tenderness NEUROLOGIC: Alert and oriented. Cranial nerves II through XII grossly intact. ASSESSMENT: 1. Small bowel obstruction 2. History of ovarian cancer Diagnosed in 2018. Status post surgery and is currently on chemotherapy 3. Status post hysterectomy, bowel resection, appendectomy, cholecystectomy and splenectomy in 2018 4. Prior history of bowel obstruction PLAN: -Continue NG tube for decompression -Keep patient nothing by mouth -Continue IV fluids -Antibiotics per medicine -GI and DVT prophylaxis Physician Sql Architect note has been reviewed by physician. Signing provider agrees with the documented findings, assessment, and plan of care. Objective - Vital Signs Vital signs: Vital Signs Temp 97.9 F 04/08/20 13:09 Pulse 55 L 04/08/20 13:09 Resp 20 04/08/20 13:09 BP 161/89 04/08/20 13:09 Pulse Ox 97 04/08/20 13:09 Intake & Output 04/07/20 04/08/20 04/08/20 18:59 06:59 18:59 Intake Total 1990 Output Total 500 760 100 Balance -500 1230 -100 Intake: Intake, IV Titration 1350 Amount Dextrose 5%-0.9% NaCl 1, 1250 000 ml @ 125 mls/hr IV . Q8H [facility] Rx#:[id number] Piperacillin-Tazobactam 3 100 .375 gm In Sodium Chloride 0.9% 100 ml @ 25 mls/hr IVPB Q8HR [facility] Rx# :[id number] Oral 640 Output: Gastric Drainage 450 Urine 500 200 Emesis 110 Oral Regurgitation 100 Other: # Voids 2 1 # Emeses 1 - Labs CBC & Chem 7: 04/07/20 05:28 04/08/20 13:50 Labs: Abnormal Lab Results - Last 24 Hours (Table) 04/07/20 04/08/20 Range/Units 23:07 13:50 Sodium 135 L (137-145) mmol/L BUN 4 L (7-17) mg/dL Creatinine 0.51 L (0.52-1.04) mg/dL Glucose 104 H (74-99) mg/dL POC Glucose (mg/dL) 127 H (75-99) mg/dL Calcium 8.2 L (8.4-10.2) mg/dL Total Protein 5.4 L (6.3-8.2) g/dL Albumin 2.8 L (3.5-5.0) g/dL
[2020-04-09] MEDS: MORPHINE SULFATE 2 MG/ML SYRINGE IVP PRN ×5 (04:49→20:59)
[2020-04-09 08:18] LABS: ALT 11 U/L (4-34); AST 20 U/L (14-36); African American GFR (CKD) >90 (>60 ml/min/1.73 sqM); Albumin 2.7 g/dL (3.5-5.0); Alkaline Phosphatase 48 U/L (38-126); Anion Gap 4 mmol/L; Blood Urea Nitrogen 3 mg/dL (7-17); Calcium 7.9 mg/dL (8.4-10.2); Carbon Dioxide 25 mmol/L (22-30); Chloride 107 mmol/L (98-107); Glucose 99 mg/dL (74-99); Non-African American GFR(CKD) >90 (>60 ml/min/1.73 sqM); Potassium 3.3 mmol/L (3.5-5.1); Sodium 136 mmol/L (137-145); Total Bilirubin 0.4 mg/dL (0.2-1.3); Total Protein 5.1 g/dL (6.3-8.2)
[2020-04-09] MEDS: HEPARIN SODIUM,PORCINE 5,000 UNIT/ML 1 ML VIAL SQ SCH ×2 (09:28→20:59)
[2020-04-09] MEDS: PANTOPRAZOLE 40 MG/10 ML VIAL IVP SCH ×2 (09:29→20:58)
[2020-04-09] MEDS: DEXTROSE 5%-0.9% NACL 1,000 ML IV SCH ×2 (09:46→18:57)
[2020-04-09] MEDS: PIPERACILLIN-TAZOBACTAM 3.375 GM in SODIUM CHLORIDE 0.9% 100 ML IVPB SCH ×3 (09:47→23:24)
[2020-04-09 11:35] VITALS: BMI 23.3
[2020-04-09] MEDS ORDERED: Potassium Replacement Protocol 1 EACH MISC MISCELLANE PRN (11:48)
--- NOTE | 2020-04-09 12:01 | P.PN ---
Subjective Progress Note Date: 04/09/20 CHIEF COMPLAINT: Abdominal pain HISTORY OF PRESENT ILLNESS: Patient followed for small bowel obstruction. Patient remains nothing by mouth with NG tube in place. Through the night she had 400 mL of dark green output. This morning she is already had 150 ML output. She is passing gas. She is having some nausea and abdominal pain. These issues are controlled with medication. She's afebrile. sodium 136, potassium 3.3 PHYSICAL EXAM: VITAL SIGNS: Reviewed. GENERAL: Well-developed in no acute distress. HEENT: No sclera icterus. Extraocular movements grossly intact. Moist buccal mucosa. Head is atraumatic, normocephalic. ABDOMEN: Soft. Mildly distended. Mild diffuse tenderness NEUROLOGIC: Alert and oriented. Cranial nerves II through XII grossly intact. ASSESSMENT: 1. Small bowel obstruction 2. History of ovarian cancer Diagnosed in 2018. Status post surgery and is currently on chemotherapy 3. Status post hysterectomy, bowel resection, appendectomy, cholecystectomy and splenectomy in 2018 4. Prior history of bowel obstruction 5. Hypokalemia: Potassium being replaced per protocol PLAN: -Continue NG tube for decompression -Keep patient nothing by mouth -Continue IV fluids -Antibiotics per medicine -GI and DVT prophylaxis -Continue pain medication as needed -Continue Zofran as Physician Biology Adjunct Instructor note has been reviewed by physician. Signing provider agrees with the documented findings, assessment, and plan of care. Objective - Vital Signs Vital signs: Vital Signs Temp 97.9 F 04/09/20 08:10 Pulse 61 04/09/20 08:10 Resp 20 04/09/20 08:10 BP 151/82 04/09/20 08:10 Pulse Ox 93 L 04/09/20 08:10 Intake & Output 04/08/20 04/09/20 04/09/20 18:59 06:59 18:59 Output Total 600 700 Balance -600 -700 Weight 63.503 kg Output: Gastric Drainage 200 400 Urine 300 Oral Regurgitation 400 Other: # Voids 1 1 - Labs CBC & Chem 7: 04/07/20 05:28 04/09/20 07:35 Labs: Abnormal Lab Results - Last 24 Hours (Table) 04/08/20 04/09/20 Range/Units 13:50 07:35 Sodium 135 L 136 L (137-145) mmol/L Potassium 3.3 L (3.5-5.1) mmol/L BUN 4 L 3 L (7-17) mg/dL Creatinine 0.51 L 0.49 L (0.52-1.04) mg/dL Glucose 104 H (74-99) mg/dL Calcium 8.2 L 7.9 L (8.4-10.2) mg/dL Total Protein 5.4 L 5.1 L (6.3-8.2) g/dL Albumin 2.8 L 2.7 L (3.5-5.0) g/dL
[2020-04-09] MEDS: ONDANSETRON 4 MG/2 ML VIAL IVP PRN ×2 (13:42→21:48)
[2020-04-09] MEDS: KETOROLAC 15 MG/ML 1 ML VIAL IVP PRN ×2 (13:42→20:11)
[2020-04-09] MEDS ORDERED: IOPAMIDOL CONTRAST (ORAL USE) VIAL PO PRN (13:56)
[2020-04-09] MEDS: POTASSIUM BICARBONATE/CIT AC 20 MEQ TABLET.EFF PO SCH ×2 (15:43→15:45)
[2020-04-09 16:42] LABS: Magnesium 1.3 mg/dL (1.6-2.3); Phosphorus 2.4 mg/dL (2.5-4.5)
--- NOTE | 2020-04-09 16:51 | P.PN ---
Subjective 59-year-old the female with a history of ovarian cancer and multiple other abdominal surgeries in the past came in for bowel obstruction patient does have a transitioned point usage evaluated the patient they treating her conservatively. Patient is a concern about ischemic bowel at the transition point because of which patient was started on antibiotics which will be continued is being treated for years partial small bowel obstruction. NG tube is being ordered at this time. Patient is on IV fluids. 04/07/2020 Patient had an NG tube significant drainage yesterday. Patient NG tube came out still nauseous a bit today patient is passing gas does have good bowel sounds. 04/08/2020 Patient clinical condition has worsened has become more sick and started throwing up again because of which NG tube was put in again. Drained about 800 mL@with NG tube placement. Patient is presently having an NG tube and is on 1 25 mL of D5 normal saline. 04/09/2020 Patient has 400 mL of output since morning today. Patient does have bowel sound s. Congestive and IV fluidspotassium is low because of IV fluids which replaced Constitutional: Denied any fatigue denied any fever. Cardio vascular: denied any chest pain, palpitations Gastrointestinal as mentioned in interval history Pulmonary: Denied any shortness of breath cough Neurologic denied any new focal deficits All inpatient medications were reviewed and appropriate changes in these medications as dictated in the interval history and assessment and plan. Objective - Vital Signs Vital signs: Vital Signs Temp 98.2 F 04/09/20 15:00 Pulse 58 L 04/09/20 15:00 Resp 16 04/09/20 15:00 BP 148/72 04/09/20 15:00 Pulse Ox 96 04/09/20 15:00 Intake & Output 04/08/20 04/09/20 04/09/20 18:59 06:59 18:59 Output Total 037 209 9880 Balance -600 -700 -1300 Weight 63.503 kg Output: Gastric Drainage 200 400 300 Urine 300 1000 Stool 0 Oral Regurgitation 400 Other: # Voids 1 1 300 - Exam PHYSICAL EXAMINATION: GENERAL: The patient is alert and oriented x3, not in any acute distress. Well developed, well nourished. HEENT: Pupils are round and equally reacting to light. EOMI. No scleral icterus. No conjunctival pallor. Normocephalic, atraumatic. No pharyngeal erythema. No thyromegaly. CARDIOVASCULAR: S1 and S2 present. No murmurs, rubs, or gallops. PULMONARY: Chest is clear to auscultation, no wheezing or crackles. ABDOMEN: Soft, mild diffuse tenderness. Bowel sounds are present, patient has an NG tube MUSCULOSKELETAL: No joint swelling or deformity. EXTREMITIES: No cyanosis, clubbing, or pedal edema. NEUROLOGICAL: Gross neurological examination did not reveal any focal deficits. SKIN: No rashes. - Labs CBC & Chem 7: 04/07/20 05:28 04/09/20 07:35 Labs: Abnormal Lab Results - Last 24 Hours (Table) 04/09/20 04/09/20 Range/Units 07:35 16:06 Sodium 136 L (137-145) mmol/L Potassium 3.3 L (3.5-5.1) mmol/L BUN 3 L (7-17) mg/dL Creatinine 0.49 L (0.52-1.04) mg/dL Calcium 7.9 L (8.4-10.2) mg/dL Phosphorus 2.4 L (2.5-4.5) mg/dL Magnesium 1.3 L (1.6-2.3) mg/dL Total Protein 5.1 L (6.3-8.2) g/dL Albumin 2.7 L (3.5-5.0) g/dL Assessment and Plan Plan: - small bowel obstruction: Continue with NG tube decompression continue with IV fluids and recheck this in metabolic profile . -Ovarian cancer is status post surgery and presently on chemotherapy -Leukocytosis: May be reactive secondary to bowel obstruction although I cannot completely rule out ischemic colitis because of which I'll continue the antibiotics -Hyponatremia secondary to D5 0.25 saline which was switched to D5 normal saline, which improved now
[2020-04-09 17:17] LABS: Ionized Calcium 4.7 mg/dL (4.5-5.3)
[2020-04-09] MEDS ORDERED: [UNRECOGNIZED DRUG - REMARK] IV SCH ×6 (19:00)
[2020-04-09] MEDS: FAT EMULSION 20% 250 ML in EMPTY BAG 1 BAG IV SCH (20:59)
[2020-04-10] MEDS: MORPHINE SULFATE 2 MG/ML SYRINGE IVP PRN ×4 (01:10→21:52)
[2020-04-10] MEDS: KETOROLAC 15 MG/ML 1 ML VIAL IVP PRN ×3 (05:19→19:37)
[2020-04-10 07:21] LABS: Basophils # (A) 0.1 k/uL (0-0.2); Basophils % (A) 1 %; Eosinophils # (A) 0.3 k/uL (0-0.7); Eosinophils % (A) 3 %; HCT 38.5 % (34.0-46.0); HGB 12.5 gm/dL (11.4-16.0); Lymphocytes # (A) 2.1 k/uL (1.0-4.8); Lymphocytes % (A) 21 %; MCH 33.9 pg (25.0-35.0); MCHC 32.6 g/dL (31.0-37.0); MCV 104.2 fL (80.0-100.0); Macrocytosis Slight; Mean Platelet Volume 7.5; Monocytes % (A) 11 %; Neutrophils # (A) 6.1 k/uL (1.3-7.7); Neutrophils % (A) 63 %; Platelet Count 324 k/uL (150-450); RBC 3.69 m/uL (3.80-5.40); RDW 13.8 % (11.5-15.5); WBC 9.7 k/uL (3.8-10.6)
[2020-04-10 07:32] LABS: African American GFR (CKD) >90 (>60 ml/min/1.73 sqM); Anion Gap 3 mmol/L; Blood Urea Nitrogen 4 mg/dL (7-17); Calcium 7.8 mg/dL (8.4-10.2); Carbon Dioxide 28 mmol/L (22-30); Chloride 103 mmol/L (98-107); Glucose 122 mg/dL (74-99); Magnesium 1.7 mg/dL (1.6-2.3); Non-African American GFR(CKD) >90 (>60 ml/min/1.73 sqM); Phosphorus 2.8 mg/dL (2.5-4.5); Potassium 3.2 mmol/L (3.5-5.1); Sodium 134 mmol/L (137-145)
[2020-04-10] MEDS: PIPERACILLIN-TAZOBACTAM 3.375 GM in SODIUM CHLORIDE 0.9% 100 ML IVPB SCH ×2 (07:57→17:00)
[2020-04-10] MEDS: DEXTROSE 5%-0.9% NACL 1,000 ML IV SCH ×3 (07:57→21:52)
[2020-04-10] MEDS: ONDANSETRON 4 MG/2 ML VIAL IVP PRN (07:57)
[2020-04-10] MEDS: PANTOPRAZOLE 40 MG/10 ML VIAL IVP SCH ×2 (09:42→20:29)
[2020-04-10] MEDS: HEPARIN SODIUM,PORCINE 5,000 UNIT/ML 1 ML VIAL SQ SCH ×2 (09:42→20:29)
--- NOTE | 2020-04-10 11:52 | P.PN ---
Subjective 59-year-old the female with a history of ovarian cancer and multiple other abdominal surgeries in the past came in for bowel obstruction patient does have a transitioned point usage evaluated the patient they treating her conservatively. Patient is a concern about ischemic bowel at the transition point because of which patient was started on antibiotics which will be continued is being treated for years partial small bowel obstruction. NG tube is being ordered at this time. Patient is on IV fluids. 04/07/2020 Patient had an NG tube significant drainage yesterday. Patient NG tube came out still nauseous a bit today patient is passing gas does have good bowel sounds. 04/08/2020 Patient clinical condition has worsened has become more sick and started throwing up again because of which NG tube was put in again. Drained about 800 mL@with NG tube placement. Patient is presently having an NG tube and is on 1 25 mL of D5 normal saline. 04/09/2020 Patient has 400 mL of output since morning today. Patient does have bowel sound s. Congestive and IV fluidspotassium is low because of IV fluids which replaced. 04/10/2020 Patient has significant NG tube output since last night. Patient is bit hyponatremic secondary to D5 half-normal saline which was switched to D5 normal saline at this time receiving (per hour patient was also started on total parenteral nutrition Constitutional: Denied any fatigue denied any fever. Cardio vascular: denied any chest pain, palpitations Gastrointestinal as mentioned in interval history Pulmonary: Denied any shortness of breath cough Neurologic denied any new focal deficits All inpatient medications were reviewed and appropriate changes in these medications as dictated in the interval history and assessment and plan. Objective - Vital Signs Vital signs: Vital Signs Temp 97.6 F 04/10/20 08:25 Pulse 58 L 04/10/20 08:25 Resp 16 04/10/20 08:25 BP 150/72 04/10/20 08:25 Pulse Ox 94 L 04/10/20 08:25 Intake & Output 04/09/20 04/10/20 04/10/20 18:59 06:59 18:59 Intake Total 250 Output Total 1850 1450 Balance -1850 -1200 Weight 63.503 kg Intake: Oral 250 Output: Gastric Drainage 550 750 Urine 1300 700 Stool 0 Other: # Voids 300 - Exam PHYSICAL EXAMINATION: GENERAL: The patient is alert and oriented x3, not in any acute distress. Well developed, well nourished. HEENT: Pupils are round and equally reacting to light. EOMI. No scleral icterus. No conjunctival pallor. Normocephalic, atraumatic. No pharyngeal erythema. No thyromegaly. CARDIOVASCULAR: S1 and S2 present. No murmurs, rubs, or gallops. PULMONARY: Chest is clear to auscultation, no wheezing or crackles. ABDOMEN: Soft, mild diffuse tenderness. Bowel sounds are present, patient has an NG tube MUSCULOSKELETAL: No joint swelling or deformity. EXTREMITIES: No cyanosis, clubbing, or pedal edema. NEUROLOGICAL: Gross neurological examination did not reveal any focal deficits. SKIN: No rashes. - Labs CBC & Chem 7: 04/10/20 06:49 04/10/20 06:49 Labs: Abnormal Lab Results - Last 24 Hours (Table) 04/09/20 04/10/20 04/10/20 Range/Units 16:06 06:49 06:49 RBC 3.69 L (3.80-5.40) m/uL MCV 104.2 H (80.0-100.0) fL Sodium 134 L (137-145) mmol/L Potassium 3.2 L (3.5-5.1) mmol/L BUN 4 L (7-17) mg/dL Creatinine 0.46 L (0.52-1.04) mg/dL Glucose 122 H (74-99) mg/dL Calcium 7.8 L (8.4-10.2) mg/dL Phosphorus 2.4 L (2.5-4.5) mg/dL Magnesium 1.3 L (1.6-2.3) mg/dL Assessment and Plan Plan: - small bowel obstruction: Continue with NG tube decompression continue with IV fluids and recheck this in metabolic profile . An NG tube output. It hyponatremic secondary to D5 half-normal saline which was switched to D5 normal saline. Patient will have a repeat CT on Sunday -Hyponatremia secondary to D5 half-normal saline as mentioned above patient was given normal saline and patient was started on total parenteral nutrition which can also make hyponatremic -Ovarian cancer is status post surgery and presently on chemotherapy -Leukocytosis: May be reactive secondary to bowel obstruction although I cannot completely rule out ischemic colitis because of which I'll continue the antibiotics
--- NOTE | 2020-04-10 12:02 | P.PN ---
Subjective Progress Note Date: 04/10/20 CHIEF COMPLAINT: Small bowel obstruction HISTORY OF PRESENT ILLNESS: The patient is a 51-year-old female multiple abdominal surgeries presents with small bowel obstruction. Nasogastric tube present. She is ambulating. Her pain is stable and in fact better today. ROS: No reports of nausea and vomiting. No bowel movements. No fevers or chills. No new chest pain. No productive sputum PHYSICAL EXAM: VITAL SIGNS: Reviewed CONSTITUTIONAL: Well developed and in no acute distress. EYES: Conjuctivae without sclera icterus. Extraocular movements grossly intact. HEAD, EARS, NOSE, THROAT: Moist buccal mucosa. Head is atraumatic, normocephalic. Hears conversational speech. NGT present. NECK: Supple. No thyroidomegaly. RESPIRATORY: Non-labored respirations and equal bilateral excursions. CARDIOVASCULAR: Palpable 2+ radial pulses. ABDOMEN: No peritonitis. MUSCULOSKELETAL: No gross deformity of the lower extremities noted. No clubbing. No cyanosis. SKIN: Good skin turgor. Well perfused. NEUROLOGIC: Cranial nerves II through XII grossly intact. No focal or lateralizing signs. PSYCH: Appropriate affect. Alert and oriented to person, place and time. CLINICAL LABS: White blood cell count normal at 9.7. Potassium low 3.2. Sodium 134. STUDIES: CT of the abdomen and pelvis and a panel reviewed demonstrating small bowel dilation including postsurgical changes in the bowel. No free air identified. ASSESSMENT: 1. Small bowel obstruction PLAN: 1. Recommend correction of electrolyte dyscrasias including low potassium and low sodium that may contribute to ileus 2. Continue TPN Objective - Vital Signs Vital signs: Vital Signs Temp 97.6 F 04/10/20 08:25 Pulse 58 L 04/10/20 08:25 Resp 16 04/10/20 08:25 BP 150/72 04/10/20 08:25 Pulse Ox 94 L 04/10/20 08:25 Intake & Output 04/09/20 04/10/20 04/10/20 18:59 06:59 18:59 Intake Total 250 Output Total 1850 1450 Balance -1850 -1200 Weight 63.503 kg Intake: Oral 250 Output: Gastric Drainage 550 750 Urine 1300 700 Stool 0 Other: # Voids 300 - Labs CBC & Chem 7: 04/10/20 06:49 04/10/20 06:49 Labs: Abnormal Lab Results - Last 24 Hours (Table) 04/09/20 04/10/20 04/10/20 Range/Units 16:06 06:49 06:49 RBC 3.69 L (3.80-5.40) m/uL MCV 104.2 H (80.0-100.0) fL Sodium 134 L (137-145) mmol/L Potassium 3.2 L (3.5-5.1) mmol/L BUN 4 L (7-17) mg/dL Creatinine 0.46 L (0.52-1.04) mg/dL Glucose 122 H (74-99) mg/dL Calcium 7.8 L (8.4-10.2) mg/dL Phosphorus 2.4 L (2.5-4.5) mg/dL Magnesium 1.3 L (1.6-2.3) mg/dL
[2020-04-10] MEDS: 1: MVI, ADULT NO.4 WITH VIT K 10 ML, TRACE (CONC-1ML/DOSE) 1 ML in AMINO ACID 4.25%-D10W IV SCH ×3 (17:01)
[2020-04-10] MEDS: FAT EMULSION 20% 250 ML in EMPTY BAG 1 BAG IV SCH (18:58)
[2020-04-11] MEDS: PIPERACILLIN-TAZOBACTAM 3.375 GM in SODIUM CHLORIDE 0.9% 100 ML IVPB SCH ×3 (00:27→16:40)
[2020-04-11] MEDS: KETOROLAC 15 MG/ML 1 ML VIAL IVP PRN (03:18)
[2020-04-11] MEDS: DEXTROSE 5%-0.9% NACL 1,000 ML IV SCH (05:15)
[2020-04-11] MEDS: 1: MVI, ADULT NO.4 WITH VIT K 10 ML, TRACE (CONC-1ML/DOSE) 1 ML in AMINO ACID 4.25%-D10W IV SCH ×3 (05:16)
[2020-04-11] MEDS ORDERED: IOPAMIDOL CONTRAST (ORAL USE) VIAL PO PRN (06:24)
[2020-04-11] MEDS: MORPHINE SULFATE 2 MG/ML SYRINGE IVP PRN ×5 (06:26→22:00)
[2020-04-11 07:22] LABS: African American GFR (CKD) >90 (>60 ml/min/1.73 sqM); Anion Gap 0 mmol/L; Blood Urea Nitrogen 9 mg/dL (7-17); Calcium 8.1 mg/dL (8.4-10.2); Carbon Dioxide 29 mmol/L (22-30); Chloride 104 mmol/L (98-107); Glucose 117 mg/dL (74-99); Magnesium 1.5 mg/dL (1.6-2.3); Non-African American GFR(CKD) >90 (>60 ml/min/1.73 sqM); Phosphorus 3.1 mg/dL (2.5-4.5); Potassium 3.4 mmol/L (3.5-5.1); Sodium 133 mmol/L (137-145)
--- NOTE | 2020-04-11 08:49 | CT ---
EXAMINATION TYPE: CT abdomen pelvis wo con DATE OF EXAM: 04/11/2020 HISTORY: bowel obstruction, pain. CT DLP: 336.3 mGycm. Automated Exposure Control for Dose Reduction was Utilized. TECHNIQUE: CT scan of the abdomen and pelvis is performed with oral but without IV contrast. COMPARISON: CT 5 days ago and 13 days ago FINDINGS: Within the limitations of a non-contrast study, the following observations are made. LUNG BASES: There are new at least small bilateral pleural effusions with associated compressive atel ectasis. Cannot exclude small to moderate-sized bilateral pleural effusions. Correlate clinically. No recent x-ray. LIVER/GB: Cholecystectomy clips redemonstrated. PANCREAS: No significant abnormality is seen. SPLEEN: Spleen not seen suspect is surgically absent similar to prior. ADRENALS: Slight low dense thickening left adrenal gland favors benign lipid rich hyperplasia. KIDNEYS: No renal calculi on noncontrast CT. No obvious new hydronephrosis. BOWEL: New nasogastric tube terminates just below diaphragm. Oral contrast reaches the mid to distal jejunal loops in the left abdomen. No suspicious dilatation of the stomach after nasogastric tube beryl cement. More prominent contrast filled dilatation second portion of duodenal sweep up to 3.5 cm. Thir d and fourth portion of duodenum show no suspicious distention. Contrast filled jejunal loops in the left abdomen are prominent, somewhat abnormally dilated similar to prior study. Persistent air-fluid level persistent dilated loop up to 4.4 cm left mid abdomen axial image 44 similar to prior. Gradual transition to less contrast filled and prominent distal jejunal loops in the mid to lower abdomen. Th stephani loops show persistent mild wall thickening. Worsening mild to moderate abdominal ascites and inte rloop fluid on current study. Fecal material seen in nondistended colon. Ileal loops anterior right l ower quadrant show no suspicious dilatation. Persistent sutures right pelvis away from suspected arndt sition in the mid to lower abdomen towards the midline. GENITAL ORGANS: Uterus surgically absent or markedly atrophic. LYMPH NODES: No greater than 1cm abdominal or pelvic lymph nodes are appreciated. OSSEOUS STRUCTURES: Mild to moderate narrowing and spurring in both hip joints.. OTHER: Mild to moderate calcified plaque abdominal aorta extends into branch vessels. IMPRESSION: Persistent partial mid small bowel obstruction with degree of jejunal dilatation not sign ificantly changed or improved from most recent CT. Consider adhesions. Cannot exclude underlying ente ritis. No complete obstruction as contrast from prior study is presumed passed in the interval. No si gnificant interval progression noted. Worsening abdominal and mesenteric ascites. Developed at least small bilateral pleural effusions. Correlate for fluid overload state.
[2020-04-11] MEDS: HEPARIN SODIUM,PORCINE 5,000 UNIT/ML 1 ML VIAL SQ SCH ×2 (10:20→20:08)
[2020-04-11] MEDS: PANTOPRAZOLE 40 MG/10 ML VIAL IVP SCH ×2 (10:21→20:08)
[2020-04-11] MEDS: 1: MVI, ADULT NO.4 WITH VIT K 10 ML, TRACE (CONC-1ML/DOSE) 1 ML, SODIUM ACETATE 10 MEQ, IV SCH ×12 (10:21→21:39)
--- NOTE | 2020-04-11 11:38 | P.PN ---
Subjective 59-year-old the female with a history of ovarian cancer and multiple other abdominal surgeries in the past came in for bowel obstruction patient does have a transitioned point usage evaluated the patient they treating her conservatively. Patient is a concern about ischemic bowel at the transition point because of which patient was started on antibiotics which will be continued is being treated for years partial small bowel obstruction. NG tube is being ordered at this time. Patient is on IV fluids. 04/07/2020 Patient had an NG tube significant drainage yesterday. Patient NG tube came out still nauseous a bit today patient is passing gas does have good bowel sounds. 04/08/2020 Patient clinical condition has worsened has become more sick and started throwing up again because of which NG tube was put in again. Drained about 800 mL@with NG tube placement. Patient is presently having an NG tube and is on 1 25 mL of D5 normal saline. 04/09/2020 Patient has 400 mL of output since morning today. Patient does have bowel sound s. Congestive and IV fluidspotassium is low because of IV fluids which replaced. 04/10/2020 Patient has significant NG tube output since last night. Patient is bit hyponatremic secondary to D5 half-normal saline which was switched to D5 normal saline at this time receiving (per hour patient was also started on total parenteral nutrition 04/11/2020 Patient is still having significant output from the NG tube about the 30th 100 mL and patient has electrolyte abnormalities which will be corrected patient is hyponatremic secondary to TPN and patient will be started on normal sinus orifices were ordered patient is getting TPN at 80 mL/h. Patient does have bowel sounds and patient had a repeat CAT scan which showed no improvement in about obstruction. Constitutional: Denied any fatigue denied any fever. Cardio vascular: denied any chest pain, palpitations Gastrointestinal as mentioned in interval history Pulmonary: Denied any shortness of breath cough Neurologic denied any new focal deficits All inpatient medications were reviewed and appropriate changes in these medications as dictated in the interval history and assessment and plan. Objective - Vital Signs Vital signs: Vital Signs Temp 99.1 F 04/11/20 08:26 Pulse 55 L 04/11/20 08:26 Resp 18 04/11/20 08:00 BP 169/90 04/11/20 08:26 Pulse Ox 94 L 04/10/20 23:00 Intake & Output 04/10/20 04/11/20 04/11/20 18:59 06:59 18:59 Intake Total 2002.333 480 Output Total 1250 1800 500 Balance 753.333 -1320 -500 Intake: Intake, IV Titration 2002.333 Amount Amino Acid 4.25%-D10w+ 415 Lytes*E* 1,000 ml @ 83 mls/hr IV .BY DURATION KASSIDY Rx#:[id number] Mvi, Adult No.4 with Vit 100 K 10 ml Trace (Conc-1Ml/ Dose) 1 ml In Amino Acid 4.25%-D10w+Lytes*E* 1,000 ml @ 83 mls/hr IV .BY DURATION KASS[facility]Y Rx#: [id number] Mvi, Adult No.4 with Vit 1488.333 K 10 ml Trace (Conc-1Ml/ Dose) 1 ml Magnesium Sulfate gm 3 gm Potassium Phosphate 10 mmol Potassium Acetate 20 meq In Amino Acid 4.25%-D10w+ Lytes*E* 1,000 ml @ 50 mls/hr IV .[id number] [facility] Rx #:[id number] Oral 480 Output: Gastric Drainage 400 Urine 850 1800 500 Other: # Voids 1 - Exam PHYSICAL EXAMINATION: GENERAL: The patient is alert and oriented x3, not in any acute distress. Well developed, well nourished. HEENT: Pupils are round and equally reacting to light. EOMI. No scleral icterus. No conjunctival pallor. Normocephalic, atraumatic. No pharyngeal erythema. No thyromegaly. CARDIOVASCULAR: S1 and S2 present. No murmurs, rubs, or gallops. PULMONARY: Chest is clear to auscultation, no wheezing or crackles. ABDOMEN: Soft, mild diffuse tenderness. Bowel sounds are present, patient has an NG tube MUSCULOSKELETAL: No joint swelling or deformity. EXTREMITIES: No cyanosis, clubbing, or pedal edema. NEUROLOGICAL: Gross neurological examination did not reveal any focal deficits. SKIN: No rashes. - Labs CBC & Chem 7: 04/10/20 06:49 04/11/20 06:50 Labs: Abnormal Lab Results - Last 24 Hours (Table) 04/11/20 Range/Units 06:50 Sodium 133 L (137-145) mmol/L Potassium 3.4 L (3.5-5.1) mmol/L Creatinine 0.42 L (0.52-1.04) mg/dL Glucose 117 H (74-99) mg/dL Calcium 8.1 L (8.4-10.2) mg/dL Magnesium 1.5 L (1.6-2.3) mg/dL Assessment and Plan Plan: - small bowel obstruction: Continue with NG tube decompression continue with IV fluids and recheck this in metabolic profile . An NG tube output. It hyponatremic secondary to TPN. Will be started on normal saline -Hypomagnesemia and hypokalemia secondary to IV fluids and TPN these will be corrected. -Ovarian cancer is status post surgery and presently on chemotherapy -Leukocytosis: May be reactive secondary to bowel obstruction although I cannot completely rule out ischemic colitis because of which I'll continue the antib iotics
[2020-04-11] MEDS: ONDANSETRON 4 MG/2 ML VIAL IVP PRN ×2 (13:35→22:00)
--- NOTE | 2020-04-11 14:19 | P.PN ---
Subjective Progress Note Date: 04/11/20 CHIEF COMPLAINT: Small bowel obstruction HISTORY OF PRESENT ILLNESS: The patient is a 51-year-old female multiple abdominal surgeries presents with small bowel obstruction and cancer. She reports no improvement of her symptoms as she still has moderate output from her NG tube. She is undergoing chemo. Her oncologist is out of [place], [place]. ROS: No bowel movements. No fevers or chills. No new chest pain. No productive sputum PHYSICAL EXAM: VITAL SIGNS: Reviewed CONSTITUTIONAL: Well developed and in no acute distress. EYES: Conjuctivae without sclera icterus. Extraocular movements grossly intact. HEAD, EARS, NOSE, THROAT: Moist buccal mucosa. Head is atraumatic, normocephali c. Hears conversational speech. NGT present. NECK: Supple. No thyroidomegaly. RESPIRATORY: Non-labored respirations and equal bilateral excursions. CARDIOVASCULAR: Palpable 2+ radial pulses. ABDOMEN: No peritonitis. MUSCULOSKELETAL: No gross deformity of the lower extremities noted. No clubb ing. No cyanosis. SKIN: Good skin turgor. Well perfused. NEUROLOGIC: Cranial nerves II through XII grossly intact. No focal or lateralizing signs. PSYCH: Appropriate affect. Alert and oriented to person, place and time. CLINICAL LABS: Potassium low 3.2 now 3.3. Sodium 134 now 133 STUDIES: CT of the abdomen and pelvis repeat reviewed demonstrating small bowel dilation with minimal migration of contrast into colon. Moderate abdominal ascites present. ASSESSMENT: 1. Small bowel obstruction PLAN: 1. Continue TPN 2. May need surgical intervention for unresolved small bowel obstruction. Objective - Vital Signs Vital signs: Vital Signs Temp 99.1 F 04/11/20 08:26 Pulse 55 L 04/11/20 08:26 Resp 18 04/11/20 08:00 BP 169/90 04/11/20 08:26 Pulse Ox 94 L 04/10/20 23:00 Intake & Output 04/10/20 04/11/20 04/11/20 18:59 06:59 18:59 Intake Total 2002.333 480 Output Total 1250 1800 500 Balance 753.333 -1320 -500 Weight 63.503 kg Intake: Intake, IV Titration 333 Amount Amino Acid 4.25%-D10w+ 415 Lytes*E* 1,000 ml @ 83 mls/hr IV .BY DURATION [facility] Rx#:[id number] Mvi, Adult No.4 with Vit 100 K 10 ml Trace (Conc-1Ml/ Dose) 1 ml In Amino Acid 4.25%-D10w+Lytes*E* 1,000 ml @ 83 mls/hr IV .BY DURATION [facility] Rx#: [id number] Mvi, Adult No.4 with Vit 1488.333 K 10 ml Trace (Conc-1Ml/ Dose) 1 ml Magnesium Sulfate gm 3 gm Potassium Phosphate 10 mmol Potassium Acetate 20 meq In Amino Acid 4.25%-D10w+ Lytes*E* 1,000 ml @ 50 mls/hr IV .[id number] [facility] Rx #:[id number] Oral 480 Output: Gastric Drainage 400 Urine 850 1800 500 Other: # Voids 1 - Labs CBC & Chem 7: 04/10/20 06:49 04/11/20 06:50 Labs: Abnormal Lab Results - Last 24 Hours (Table) 04/11/20 Range/Units 06:50 Sodium 133 L (137-145) mmol/L Potassium 3.4 L (3.5-5.1) mmol/L Creatinine 0.42 L (0.52-1.04) mg/dL Glucose 117 H (74-99) mg/dL Calcium 8.1 L (8.4-10.2) mg/dL Magnesium 1.5 L (1.6-2.3) mg/dL
[2020-04-11] MEDS ORDERED: PROMETHAZINE INJ 6.25 MG in SODIUM CHLORIDE 0.9% 50 ML IVPB ONE (17:03)
[2020-04-11] MEDS: FAT EMULSION 20% 250 ML in EMPTY BAG 1 BAG IV SCH (19:11)
[2020-04-11] MEDS: SODIUM CHLORIDE 0.9% 1,000 ML IV SCH (20:08)
[2020-04-12] MEDS: PIPERACILLIN-TAZOBACTAM 3.375 GM in SODIUM CHLORIDE 0.9% 100 ML IVPB SCH ×4 (00:04→16:53)
[2020-04-12] MEDS: SODIUM CHLORIDE 0.9% 1,000 ML IV SCH (00:04)
[2020-04-12] MEDS: MORPHINE SULFATE 2 MG/ML SYRINGE IVP PRN ×4 (04:17→18:28)
[2020-04-12] MEDS: ONDANSETRON 4 MG/2 ML VIAL IVP PRN ×2 (06:05→13:50)
[2020-04-12 06:17] LABS: African American GFR (CKD) >90 (>60 ml/min/1.73 sqM); Anion Gap 3 mmol/L; Blood Urea Nitrogen 10 mg/dL (7-17); Calcium 8.6 mg/dL (8.4-10.2); Carbon Dioxide 29 mmol/L (22-30); Chloride 100 mmol/L (98-107); Glucose 117 mg/dL (74-99); Magnesium 1.4 mg/dL (1.6-2.3); Non-African American GFR(CKD) >90 (>60 ml/min/1.73 sqM); Phosphorus 3.8 mg/dL (2.5-4.5); Sodium 132 mmol/L (137-145)
[2020-04-12 06:24] LABS: Potassium 3.8 mmol/L (3.5-5.1)
[2020-04-12] MEDS: HEPARIN SODIUM,PORCINE 5,000 UNIT/ML 1 ML VIAL SQ SCH (08:46)
[2020-04-12] MEDS: PANTOPRAZOLE 40 MG/10 ML VIAL IVP SCH (09:32)
[2020-04-12] MEDS ORDERED: 1: MVI, ADULT NO.4 WITH VIT K 10 ML, TRACE (CONC-1ML/DOSE) 1 ML, SODIUM CHLORIDE 2.5MEQ/ IV SCH ×6 (10:00)
--- NOTE | 2020-04-12 11:05 | P.PN ---
Subjective 59-year-old the female with a history of ovarian cancer and multiple other abdominal surgeries in the past came in for bowel obstruction patient does have a transitioned point usage evaluated the patient they treating her conservatively. Patient is a concern about ischemic bowel at the transition point because of which patient was started on antibiotics which will be continued is being treated for years partial small bowel obstruction. NG tube is being ordered at this time. Patient is on IV fluids. 04/07/2020 Patient had an NG tube significant drainage yesterday. Patient NG tube came out still nauseous a bit today patient is passing gas does have good bowel sounds. 04/08/2020 Patient clinical condition has worsened has become more sick and started throwing up again because of which NG tube was put in again. Drained about 800 mL@with NG tube placement. Patient is presently having an NG tube and is on 1 25 mL of D5 normal saline. 04/09/2020 Patient has 400 mL of output since morning today. Patient does have bowel sound s. Congestive and IV fluidspotassium is low because of IV fluids which replaced. 04/10/2020 Patient has significant NG tube output since last night. Patient is bit hyponatremic secondary to D5 half-normal saline which was switched to D5 normal saline at this time receiving (per hour patient was also started on total parenteral nutrition 04/11/2020 Patient is still having significant output from the NG tube about the 30th 100 mL and patient has electrolyte abnormalities which will be corrected patient is hyponatremic secondary to TPN and patient will be started on normal sinus orifices were ordered patient is getting TPN at 80 mL/h. Patient does have bowel sounds and patient had a repeat CAT scan which showed no improvement in about obstruction. 04/12/2020 Patient is taking still negative fluid balance unfortunately she lost 1 IV lines patient may need to be midline which will be ordered. Patient will undergo lysis of adhesions today will need surgical intervention because of non improvement of her bowel obstruction with conservative measures. Patient is still having significant output via NG tube. Patient is bit hyponatremic secondary to TPN Constitutional: Denied any fatigue denied any fever. Cardio vascular: denied any chest pain, palpitations Gastrointestinal as mentioned in interval history Pulmonary: Denied any shortness of breath cough Neurologic denied any new focal deficits All inpatient medications were reviewed and appropriate changes in these medications as dictated in the interval history and assessment and plan. Objective - Vital Signs Vital signs: Vital Signs Temp 97.6 F 04/12/20 08:08 Pulse 59 L 04/12/20 08:30 Resp 18 04/12/20 08:08 BP 172/88 04/12/20 08:08 Pulse Ox 90 L 04/12/20 08:08 Intake & Output 04/11/20 04/12/20 04/12/20 18:59 06:59 18:59 Intake Total 1320 Output Total 3000 2570 425 Balance -3000 -1250 -425 Weight 63.503 kg Intake: Intake, IV Titration 1080 Amount Fat Emulsion 20% 250 ml 250 In Empty Bag 1 bag @ 21 mls/hr IV DAILY@1800 KASSIDY Rx#:[id number] Sodium Acetate 10 meq In 830 Amino Acid 4.25%-D10w+ Lytes*E* 1,000 ml @ 83 mls/hr IV .BY DURATION KASSIDY Rx#:[id number] Oral 240 Output: Gastric Drainage 500 270 Urine 2500 2300 425 Other: # Voids 1 - Exam PHYSICAL EXAMINATION: GENERAL: The patient is alert and oriented x3, not in any acute distress. Well developed, well nourished. HEENT: Pupils are round and equally reacting to light. EOMI. No scleral icterus. No conjunctival pallor. Normocephalic, atraumatic. No pharyngeal erythema. No thyromegaly. CARDIOVASCULAR: S1 and S2 present. No murmurs, rubs, or gallops. PULMONARY: Chest is clear to auscultation, no wheezing or crackles. ABDOMEN: Soft, mild diffuse tenderness. Bowel sounds are present, patient has an NG tube MUSCULOSKELETAL: No joint swelling or deformity. EXTREMITIES: No cyanosis, clubbing, or pedal edema. NEUROLOGICAL: Gross neurological examination did not reveal any focal deficits. SKIN: No rashes. - Labs CBC & Chem 7: 04/10/20 06:49 04/12/20 05:47 Labs: Abnormal Lab Results - Last 24 Hours (Table) 04/12/20 Range/Units 05:47 Sodium 132 L (137-145) mmol/L Creatinine 0.44 L (0.52-1.04) mg/dL Glucose 117 H (74-99) mg/dL Magnesium 1.4 L (1.6-2.3) mg/dL Assessment and Plan Plan: - small bowel obstruction: Continue with NG tube decompression continue with IV fluids and recheck this in metabolic profile . She today will undergo surgical adhesionolysis hyponatremic secondary to TPN. Continue on IV normal saline -Hypomagnesemia and hypokalemia secondary to IV fluids and TPN these will be corrected. -Ovarian cancer is status post surgery and presently on chemotherapy -Leukocytosis: reactive secondary to bowel obstruction
[2020-04-12 12:10] LABS: Prothrombin Time 10.6 sec (9.0-12.0)
--- NOTE | 2020-04-12 13:17 | P.DS ---
Providers Date of admission: 04/05/20 18:04 Expected date of discharge: 04/12/20 Attending physician: Manuel Rosenbaum Consults: 04/05/20 18:05 Consult Physician Stat Consulting Provider: Bashir Arauz Consult Reason/Comments: Ileus Do you want consulting provider notified?: Yes Primary care physician: Treasure Whitaker Hospital Course: Discharge diagnosis 1. Small bowel obstruction 2. History of ovarian cancer Diagnosed in 2018. Status post surgery and is currently on chemotherapy 3. Status post hysterectomy, bowel resection, appendectomy, cholecystectomy and splenectomy in 2018 4. Prior history of bowel obstruction 5. Hypokalemia Resolved 6. Hypomagnesemia being replaced 7. Leukocytosis likely related to bowel obstruction. Now resolved Hospital course This is a 59-year-old female with a known history of ovarian cancer Diagnosed in 2018 who is status post total hysterectomy, appendectomy,bowel resection, cholecystectomy and splenectomy She is currently undergoing chemotherapy through [facility]. She's also had prior history of bowel obstruction that was treated conservatively. She reports over the last week before her admission she's had decrease in appetite, vomiting and abdominal pain. Patient was in the hospital about 2 weeks ago and at that time had a CAT scan done with concerns of developing small bowel obstruction. The patient did leave AGAINST MEDICAL ADVICE. This admission CAT scan Of the abdomen and pelvis Showing similar increased dilated small bowel loops in the left abdomen with mild wall thickening. Associated mesenteric edema and interloop fluid. Query transition point in the left pelvis. Findings may represent bowel obstruction with transition point in the left pelvis. Closed-loop or possible ischemic component not excluded. Patient has been admitted to the hospital for possible bowel obstruction. She had NG tube placed for decompression. Patient is still having output through the NG tube. Abdomen is still distended and tender. She had a repeat computed tomography scan of the abdomen and pelvis showing a persistent partial mid small bowel obstruction. Dr. Arauz did discuss with patient options of surgery. However, patient is followed by her oncologist surgeon Dr. Hodges out of [facility]. Patient will be transferred to [facility] under Dr. Camacho who has done patient's previous abdominal surgeries. Patient is medically stable for transfer. Please refer to chart for any further details. Physician Quality Control Lab Technician note has been reviewed by physician. Signing provider agrees with the documented findings, assessment, and plan of care. Patient Condition at Discharge: Stable Plan - Discharge Summary Discharge Rx Participant: No New Discharge Prescriptions: No Action Pantoprazole Sodium 40 mg PO DAILY Magnesium 200 mg PO DAILY Metoclopramide [Reglan] 10 mg PO ACHS Potassium Gluconate 99 mg PO DAILY Prochlorperazine [Compazine] 10 mg PO QID Ibuprofen [Motrin] 600 mg PO QID PRN PRN Reason: Pain Discharge Medication List Pantoprazole Sodium 40 mg PO DAILY 01/12/20 [History] Magnesium 200 mg PO DAILY 03/29/20 [History] Metoclopramide [Reglan] 10 mg PO ACHS 03/29/20 [History] Potassium Gluconate 99 mg PO DAILY 03/29/20 [History] Ibuprofen [Motrin] 600 mg PO QID PRN 04/05/20 [History] Prochlorperazine [Compazine] 10 mg PO QID 04/05/20 [History] Follow up Appointment(s)/Referral(s): Treasure Whitaker DO [Primary Care Provider] - 1-2 days Patient Instructions/Handouts: Abdominal Pain (ED) Activity/Diet/Wound Care/Special Instructions: He will be admitted
[2020-04-12] MEDS: MAGNESIUM SULFATE-D5W PMX 1 GM in DEXTROSE/WATER 1 100ML.BAG IVPB SCH ×2 (14:00→15:24)
--- NOTE | 2020-04-12 14:37 | XR ---
EXAMINATION TYPE: XR chest 1V DATE OF EXAM: 04/12/2020 COMPARISON: chest x-ray 12/01/2018 HISTORY: Congestive heart failure TECHNIQUE: Single frontal view of the chest is obtained. FINDINGS: There is an orogastric tube present with the distal tip in the left upper quadrant. Blunti ng the costophrenic angles is present. Heart and mediastinal silhouette, pulmonary vascularity and hi la show similar appearance. No evident pneumothorax. Patchy basilar density is present bilaterally. IMPRESSION: Basilar effusions and associated atelectasis, correlate to exclude pneumonia.
[2020-04-12] MEDS ORDERED: LIDOCAINE 1% INJ 10MG/ML (20 ML MDV) ONE (14:57)
[2020-04-12] MEDS ORDERED: LIDOCAINE 1% INJ 10MG/ML (20 ML MDV) SQ ONE (15:06)
--- NOTE | 2020-04-12 15:57 | IR ---
EXAMINATION TYPE: IR cvc insert >=5 years DATE OF EXAM: 04/12/2020 COMPARISON: NONE CLINICAL HISTORY: Small bowel obstruction, ovarian cancer Needs long-term intravenous access for RV. PROCEDURE: Hand hygiene obtained with soap and water and alcohol-based hand rub. After informed consent, the skin overlying the left brachial vein was localized with ultrasound and n oted to be compressible and patent. An ultrasound image was obtained and submitted on the patient's chart. The overlying skin was prepped and draped and Lidocaine was used for local anesthesia. A ski n dioni was made with a scalpel. Access was gained to the vein under ultrasound guidance with a 21 ga uge needle and a 0.018 inch wire was advanced. Access site was dilated with Peel-Away sheath and cat heter tailored to the appropriate length and advanced such that the distal tip is at the cavoatrial j unction. Spot image was obtained verifying placement. Catheter was fixed to the skin and a sterile dressing was placed following hemostasis. Catheter was aspirated and flushed with saline. Patient w as discharged in stable condition without complication. Maximal barrier technique is utilized. Ultra sound image is documented on the chart. Ultrasound used with sterile technique. Fluoro time and fluoroscopic images submitted to document procedure: 28 intraoperative images, 0.1 mi nutes fluoroscopy time IMPRESSION: STATUS POST ULTRASOUND AND FLUOROSCOPIC GUIDED PICC LINE PLACEMENT, READY FOR USE. THIS PROCEDURE WAS PERFORMED BY THE UNDERSIGNED.
[2020-04-12 17:02] VITALS: BP 165/93; PULSE 59; RESP 16; TEMP 97.6
--- NOTE | 2020-04-14 08:19 | CDI ---
Documentation Clarification Form Date: 04/14/20 From: Anabel Johnson CCS Phone: If you have a question about this query, please contact Gilma Wilkins, Still Pump Operator at [phone] between 8am and 5pm. Admit Date: 04/05/20 Discharge Date:04/12/20 Patient Name: Leny Meza Visit Number: [id number] ATTENTION: The Clinical Documentation Specialists (CDI) and [facility] Coding Staff appreciate your assistance in clarifying documentation. Please respond to the clarification below the line at the bottom and electronically sign. The CDI & [facility] Coding staff will review the response and follow-up if needed. Please note: Queries are made part of the Legal Health Record. If you have any questions, please contact the author of this message via ITS. Dear Dr. Arauz, The patient presented with partial small bowel obstruction. Consult, PNs, DS document: Closed-loop or possible ischemic component not excluded PNs document: Leukocytosis: May be reactive secondary to bowel obstruction although I cannot completely rule out ischemic colitis because of which I'll continue the antibiotics PN 04/12 documents: Patient will undergo lysis of adhesions today will need surgical intervention because of nonimprovement of her bowel obstruction with conservative measures DS documents: Dr. Arauz did discuss with patient options of surgery.However, patient is followed by her oncologist surgeon Dr. Hodges out of [facility].Patient will be transferred to [facility] under Dr. Camacho who has done patient's previous abdominal surgeries. History/Risk Factors: Previous abdominal surgeries, Ovarian CA, Chemo, Tobacco Clinical Indicators: Partial small bowel obstruction Lab findings: WBC 17.9, 12.8 CT: Persistent partial mid small bowel obstruction with degree of jejunal dilatation not significantly changed or improved from most recent CT. Consider adhesions.Cannot exclude underlying enteritis.No complete obstruction as contrast from prior study is presumed passed in the interval.No significant interval progression noted.Worsening abdominal and mesenteric ascites. Vital Signs: BP 147/82, RR 18, Temp 97, NC 78, O2 Sat 97 Treatment: Zosyn 3.375 gm IVPB, TPN, NG Tube, Transfer for surgery In your professional opinion, can you please clarify ischemic bowel? Acute Chronic Other, please specify Unable to determine Unable to determine MTDD
== END 2020-04-12 18:42 | disposition short-term general hospital (02) | DRG 389 ==
LOC: EC 14:21 → 6NMEDSUR 18:04 → 6PED 04-06 11:19
PROVIDERS: ADMIT Hospitalist; ATTEND Hospitalist
PROC: 0D9670Z Drainage of Stomach with Drainage Device, Via Natural or Artificial Opening (ICD-10-PCS; principal; 2020-04-06)
PROC: 3E0336Z Introduction of Nutritional Substance into Peripheral Vein, Percutaneous Approach (ICD-10-PCS; 2020-04-09)
PROC: 05HB33Z Insertion of Infusion Device into Right Basilic Vein, Percutaneous Approach (ICD-10-PCS; 2020-04-12)
PROC: 02HV33Z Insertion of Infusion Device into Superior Vena Cava, Percutaneous Approach (ICD-10-PCS; 2020-04-12 11:20)
DX: K56.51 Intestinal adhesions [bands], with partial obstruction (principal); C56.9 Malignant neoplasm of unspecified ovary; E87.1 Hypo-osmolality and hyponatremia; K55.9 Vascular disorder of intestine, unspecified; Z20.828 Contact with and (suspected) exposure to other viral communicable diseases; F32.9 Major depressive disorder, single episode, unspecified; F17.210 Nicotine dependence, cigarettes, uncomplicated; M19.90 Unspecified osteoarthritis, unspecified site; E16.2 Hypoglycemia, unspecified; E87.6 Hypokalemia; E83.42 Hypomagnesemia; Z71.3 Dietary counseling and surveillance; Z79.899 Other long term (current) drug therapy; Z90.49 Acquired absence of other specified parts of digestive tract; Z90.710 Acquired absence of both cervix and uterus; Z98.890 Other specified postprocedural states; Z90.81 Acquired absence of spleen; Z80.1 Family history of malignant neoplasm of trachea, bronchus and lung; Z82.5 Family history of asthma and other chronic lower respiratory diseases; Z82.0 Family history of epilepsy and other diseases of the nervous system
CPT/HCPCS: 36410; 36415; 36573; 71045; 74018; 74176; 76937; 80048; 80053; 81001; 82150; 82330; 83690; 83735; 84100; 84478; 84484; 85025; 85027; 85610; 87635; 93005; 96361; 96374; 96375; 99285

== ENCOUNTER 2020-05-22 17:24 | Emergency (ER) | payer BC ==
[2020-05-22] MEDS ORDERED: diphenhydrAMINE 50 MG/ML 1 ML VIAL IVP STA (17:51)
[2020-05-22] MEDS ORDERED: SODIUM CHLORIDE 0.9% 500 ML 500 ML IV ONE (17:51)
[2020-05-22] MEDS ORDERED: METOCLOPRAMIDE 5 MG/ML 2 ML VIAL IVP STA (17:51)
--- NOTE | 2020-05-22 17:57 | ED ---
Recheck HPI - General Chief Complaint: Recheck/Abnormal Lab/Rx Stated Complaint: Abnormal labs Time Seen by Provider: 05/22/20 17:37 Source: patient Mode of arrival: wheelchair Limitations: no limitations - History of Present Illness Initial Comments: This is a 59-year-old female to history of ovarian cancer with hysterectomy splenectomy appendectomy in 2018 who presents for hyperkalemia with nausea. The patient states that she's been very nauseated and has had some vomiting over the last few days. The patient has a known small bowel obstruction which was discovered back in March however she has been unable to have surgery performed to corrected because of inflammation of the colon. 2 weeks ago she had a G-tube placed for decompression. The patient came in today because she had routine labs drawn yesterday and she was notified that her potassium was 6.4 with the patient denies any palpitations, chest pain, or lightheadedness. No syncope. She was advised come emergency department for treatment. The patient does state that she has not had a bowel movement since March. She states that she has not passing any gas as well. She does receive TPN through a PICC. She's not currently on chemo because of her bowel obstruction. She otherwise denies any increased pain. No shortness of breath, fever, chills. The patient is seen at [facility] in [place]. - Related Data Home Medications Medication Instructions Recorded Confirmed Pantoprazole Sodium 40 mg PO DAILY 01/12/20 04/05/20 Magnesium 200 mg PO DAILY 03/29/20 04/05/20 Metoclopramide [Reglan] 10 mg PO ACHS 03/29/20 04/05/20 Potassium Gluconate 99 mg PO DAILY 03/29/20 04/05/20 Ibuprofen [Motrin] 600 mg PO QID PRN 04/05/20 04/05/20 Prochlorperazine [Compazine] 10 mg PO QID 04/05/20 04/05/20 Previous Rx's Medication Instructions Recorded Cephalexin [Keflex] 500 mg PO Q12HR 1 Days #2 cap 05/22/20 Allergies Allergy/AdvReac Type Severity Reaction Status Date / Time No Known Allergies Allergy Verified 05/22/20 17:29 Review of Systems ROS Statement: Those systems with pertinent positive or pertinent negative responses have been documented in the HPI. ROS Other: All systems not noted in ROS Statement are negative. Past Medical History Past Medical History: Cancer Additional Past Medical History / Comment(s): ovarian CA History of Any Multi-Drug Resistant Organisms: None Reported Past Surgical History: Appendectomy, Bowel Resection, Cholecystectomy, Hysterectomy, Orthopedic Surgery Additional Past Surgical History / Comment(s): sinus, d and c; knee scopes, spleenectomy, bowel resection, peg tube insertion Past Anesthesia/Blood Transfusion Reactions: No Reported Reaction Past Psychological History: No Psychological Hx Reported Smoking Status: Former smoker Past Alcohol Use History: None Reported Past Drug Use History: None Reported - Past Family History Mother Family Medical History: Cancer, Dementia Additional Family Medical History / Comment(s): lung CA Father Family Medical History: Cancer, COPD Additional Family Medical History / Comment(s): lung CA General Exam - General Exam Comments Initial Comments: Constitutional: Awake alert Appears comfortable Head: Normocephalic atraumatic Eyes: no conjunctival injection No scleral icterus EOMI, slight conjunctival pallor Neck: No JVD Supple Heart: Regular rate rhythm normal S1-S2 no murmurs Lungs: Clear to auscultation bilaterally No wheezing No rales Abdomen: Soft nondistended mild tenderness diffusely which the patient states is chronic Extremities: Non edematous DP pulses intact Radial pulses intact Neuro: A&Ox3 No focal neurologic deficits Psych: Appropriate mood and affect Limitations: no limitations Course Vital Signs 05/22/20 17:25 Temperature 98.0 F Pulse Rate 84 Respiratory 18 Rate Blood Pressure 129/80 O2 Sat by Pulse 99 Oximetry - Reevaluation(s) Reevaluation #1: 05/22/20 19:10 Patient has persistent nausea even after Reglan which she states is much worse than typical. X-ray did not reveal any other maladies however going to repeat a computed tomography scan at this time. Reevaluation #2: 05/22/20 20:39 EKG showing no sinus rhythm with a rate of 80. There is no abnormal ST segment changes. The patient is a T-wave inversions in V1 and V2 however this is un changed from previous. QTC is 456. Other intervals are normal. No ectopy. 05/22/20 20:40 Medical Decision Making - Medical Decision Making Is a 59-year-old female presents emergency department for nausea and abnormal lab on outpatient testing. Patient had blood work performed which revealed a potassium of 4.8. The other labs were unremarkable. EKG did not show any evidence for hyperkalemia and was unchanged from previous. The patient did have an x-ray which was unremarkable. Computed tomography scan showed unchanged dilated small bowel and chronic changes. Nothing acute. The patient was given Reglan which she stated did not help for her nausea however she did not have any vomiting while emergency department. She was given 1 dose of IV Zofran. UA did show some pyuria and she has been complaining of a little bit of urinary f requency and thus the patient was started on Keflex or this could be the etiology of her nausea. The patient was told to follow-up closely with her oncologist and could return to [facility] she had worsening or changing symptoms. All questions were answered. - Lab Data Result diagrams: 05/22/20 18:18 05/22/20 18:18 Lab Results 05/22/20 05/22/20 05/22/20 Range/Units 18:18 18:18 18:18 WBC 10.7 H (3.8-10.6) k/uL RBC 3.68 L (3.80-5.40) m/uL Hgb 11.6 (11.4-16.0) gm/dL Hct 36.1 (34.0-46.0) % MCV 97.9 D (80.0-100.0) fL MCH 31.6 (25.0-35.0) pg MCHC 32.3 (31.0-37.0) g/dL RDW 14.5 (11.5-15.5) % Plt Count 502 H (150-450) k/uL MPV 8.7 Neutrophils % 58 % Lymphocytes % 24 % Monocytes % 13 % Eosinophils % 3 % Basophils % 1 % Neutrophils # 6.2 (1.3-7.7) k/uL Lymphocytes # 2.6 (1.0-4.8) k/uL Monocytes # 1.4 H (0-1.0) k/uL Eosinophils # 0.3 (0-0.7) k/uL Basophils # 0.1 (0-0.2) k/uL Sodium 127 L (137-145) mmol/L Potassium 4.8 (3.5-5.1) mmol/L Chloride 95 L (98-107) mmol/L Carbon Dioxide 30 (22-30) mmol/L Anion Gap 2 mmol/L BUN 18 H (7-17) mg/dL Creatinine 0.41 L (0.52-1.04) mg/dL Est GFR (CKD-EPI)AfAm >90 (>60 ml/min/1.73 sqM) Est GFR (CKD-EPI)NonAf >90 (>60 ml/min/1.73 sqM) Glucose 80 (74-99) mg/dL Calcium 8.9 (8.4-10.2) mg/dL Magnesium 1.6 (1.6-2.3) mg/dL Total Bilirubin 0.7 (0.2-1.3) mg/dL AST 37 H (14-36) U/L ALT 12 (4-34) U/L Alkaline Phosphatase 79 (38-126) U/L Total Protein 6.4 (6.3-8.2) g/dL Albumin 3.1 L (3.5-5.0) g/dL Urine Color Urine Appearance (Clear) Urine pH (5.0-8.0) Ur Specific Willard (1.001-1.035) Urine Protein (Negative) Urine Glucose (UA) (Negative) Urine Ketones (Negative) Urine Blood (Negative) Urine Nitrite (Negative) Urine Bilirubin (Negative) Urine Urobilinogen (<2.0) mg/dL Ur Leukocyte Esterase (Negative) Urine RBC (0-5) /hpf Urine WBC (0-5) /hpf Ur Squamous Epith Cells (0-4) /hpf Urine Bacteria (None) /hpf Urine Mucus (None) /hpf Blood Type A Positive Blood Type Recheck No Previous Record Bld Type Recheck Status CABO Indicated Antibody Screen NEGATIVE Spec Expiration Date 05/25/2020 - 231705/22/20 Range/Units 19:50 WBC (3.8-10.6) k/uL RBC (3.80-5.40) m/uL Hgb (11.4-16.0) gm/dL Hct (34.0-46.0) % MCV (80.0-100.0) fL MCH (25.0-35.0) pg MCHC (31.0-37.0) g/dL RDW (11.5-15.5) % Plt Count (150-450) k/uL MPV Neutrophils % % Lymphocytes % % Monocytes % % Eosinophils % % Basophils % % Neutrophils # (1.3-7.7) k/uL Lymphocytes # (1.0-4.8) k/uL Monocytes # (0-1.0) k/uL Eosinophils # (0-0.7) k/uL Basophils # (0-0.2) k/uL Sodium (137-145) mmol/L Potassium (3.5-5.1) mmol/L Chloride (98-107) mmol/L Carbon Dioxide (22-30) mmol/L Anion Gap mmol/L BUN (7-17) mg/dL Creatinine (0.52-1.04) mg/dL Est GFR (CKD-EPI)AfAm (>60 ml/min/1.73 sqM) Est GFR (CKD-EPI)NonAf (>60 ml/min/1.73 sqM) Glucose (74-99) mg/dL Calcium (8.4-10.2) mg/dL Magnesium (1.6-2.3) mg/dL Total Bilirubin (0.2-1.3) mg/dL AST (14-36) U/L ALT (4-34) U/L Alkaline Phosphatase (38-126) U/L Total Protein (6.3-8.2) g/dL Albumin (3.5-5.0) g/dL Urine Color Light Yellow Urine Appearance Clear (Clear) Urine pH 7.5 (5.0-8.0) Ur Specific Willard 1.015 (1.001-1.035) Urine Protein Negative (Negative) Urine Glucose (UA) Negative (Negative) Urine Ketones Negative (Negative) Urine Blood Negative (Negative) Urine Nitrite Negative (Negative) Urine Bilirubin Negative (Negative) Urine Urobilinogen <2.0 (<2.0) mg/dL Ur Leukocyte Esterase Moderate H (Negative) Urine RBC 2 (0-5) /hpf Urine WBC 22 H (0-5) /hpf Ur Squamous Epith Cells 1 (0-4) /hpf Urine Bacteria Rare H (None) /hpf Urine Mucus Few H (None) /hpf Blood Type Blood Type Recheck Bld Type Recheck Status Antibody Screen Spec Expiration Date Disposition Clinical Impression: UTI (urinary tract infection), Nausea & vomiting Disposition: HOME SELF-CARE Condition: Stable Instructions (If sedation given, give patient instructions): Acute Nausea and Vomiting (ED) Prescriptions: Cephalexin [Keflex] 500 mg PO Q12HR 1 Days #2 cap Is patient prescribed a controlled substance at d/c from ED?: No Referrals: Treasure Whitaker DO [Primary Care Provider] - 1-2 days
[2020-05-22 18:43] LABS: ALT 12 U/L (4-34); AST 37 U/L (14-36); African American GFR (CKD) >90 (>60 ml/min/1.73 sqM); Albumin 3.1 g/dL (3.5-5.0); Alkaline Phosphatase 79 U/L (38-126); Anion Gap 2 mmol/L; Blood Urea Nitrogen 18 mg/dL (7-17); Calcium 8.9 mg/dL (8.4-10.2); Carbon Dioxide 30 mmol/L (22-30); Chloride 95 mmol/L (98-107); Glucose 80 mg/dL (74-99); Magnesium 1.6 mg/dL (1.6-2.3); Non-African American GFR(CKD) >90 (>60 ml/min/1.73 sqM); Sodium 127 mmol/L (137-145); Total Bilirubin 0.7 mg/dL (0.2-1.3); Total Protein 6.4 g/dL (6.3-8.2)
[2020-05-22 18:45] LABS: Basophils # (A) 0.1 k/uL (0-0.2); Basophils % (A) 1 %; Eosinophils # (A) 0.3 k/uL (0-0.7); Eosinophils % (A) 3 %; HCT 36.1 % (34.0-46.0); HGB 11.6 gm/dL (11.4-16.0); Lymphocytes # (A) 2.6 k/uL (1.0-4.8); Lymphocytes % (A) 24 %; MCH 31.6 pg (25.0-35.0); MCHC 32.3 g/dL (31.0-37.0); Mean Platelet Volume 8.7; Monocytes # (A) 1.4 k/uL (0-1.0); Monocytes % (A) 13 %; Neutrophils # (A) 6.2 k/uL (1.3-7.7); Neutrophils % (A) 58 %; Platelet Count 502 k/uL (150-450); RBC 3.68 m/uL (3.80-5.40); RDW 14.5 % (11.5-15.5); WBC 10.7 k/uL (3.8-10.6)
[2020-05-22 18:48] LABS: MCV 97.9 fL (80.0-100.0); Potassium 4.8 mmol/L (3.5-5.1)
--- NOTE | 2020-05-22 19:00 | XR ---
EXAMINATION TYPE: XR abdomen acute w cxr DATE OF EXAM: 05/22/2020 COMPARISON: 04/12/2020 HISTORY: Nausea. TECHNIQUE: 4 views FINDINGS: Heart and mediastinum are normal. Lungs are clear. Diaphragm is normal. Bony thorax appears normal. There is gastrostomy tube noted. There is no sign of intestinal obstruction or pneumoperiton eum. Fecal pattern is normal. There is contrast in the large bowel. There are clips from cholecystect beto. IMPRESSION: No active cardiopulmonary disease. There is clearing of the pleural fluid and lower lobe pulmonary infiltrates compared to old exam. Nonacute abdomen.
--- NOTE | 2020-05-22 19:40 | CT ---
EXAMINATION TYPE: CT abdomen pelvis w con DATE OF EXAM: 05/22/2020 COMPARISON: 04/11/2020 HISTORY: Nausea and elevated potassium, hx of ovarian cancer. CT DLP: 685.1 mGycm Automated exposure control for dose reduction was used. CONTRAST: Performed with IV Contrast, patient injected with 100ml mL of Isovue 300. Lung bases are clear. There is no pleural effusion. Heart size is normal. There is no pericardial eff usion. There is gastrostomy tube noted in good position. Liver shows no focal defect. There are clips from cholecystectomy. Spleen is absent. There is no evidence of pancreatic mass. There is no adrenal mass. Kidneys show satisfactory contrast opacification. There is no hydronephrosi s. Bladder distends smoothly. There is no inguinal hernia. There is no free fluid in the pelvis. There is some distended fluid-filled small bowel loops in the mid abdomen. There is some contrast mat erial in the large bowel. Large bowel is not dilated. Small bowel is dilated up to 4.3 cm. Distal sma ll bowel is not dilated. There are surgical clips in the pelvis. Transition point not identified. The bony pelvis is intact. Lumbar spine is intact. There is no compression fracture. Hip joints are i ntact. IMPRESSION: There is clearing of the bilateral pleural effusions and basilar pulmonary infiltrates compared to ol d exam. There are dilated multiple loops of small bowel suggestive of partial mechanical obstruction unchanged. Transition point not seen.
[2020-05-22 19:56] LABS: Appearance,Urine Clear (Clear); Bacteria,Urine Rare /hpf; Bilirubin,Urine Negative (Negative); Blood,Urine Negative (Negative); Color,Urine Light Yellow; Glucose,Urine (UA) Negative (Negative); Ketones,Urine Negative (Negative); Leukocyte Esterase,Urine Moderate (Negative); Mucus,Urine Few /hpf; Nitrite,Urine Negative (Negative); PH, Urine 7.5 (5.0-8.0); Protein,Urine Negative (Negative); RBC,Urine 2 /hpf (0-5); Specific Gravity,Urine 1.015 (1.001-1.035); Squamous Epithelial Cell,Urine 1 /hpf (0-4); Urobilinogen,Urine <2.0 mg/dL (<2.0); WBC,Urine 22 /hpf (0-5)
[2020-05-22] MEDS ORDERED: CEPHALEXIN 500MG STARTER PACK 4 CAP BTL PO STA (20:05)
[2020-05-22] MEDS ORDERED: ONDANSETRON 4 MG/2 ML VIAL IVP STA (20:05)
[2020-05-22 20:50] VITALS: BP 127/77; PULSE 91; RESP 16; TEMP 99
== END 2020-05-22 20:50 | disposition home or self-care (01) ==
LOC: EC 17:24
DX: N39.0 Urinary tract infection, site not specified (principal); R11.2 Nausea with vomiting, unspecified; Z79.899 Other long term (current) drug therapy; Z87.891 Personal history of nicotine dependence; Z85.43 Personal history of malignant neoplasm of ovary; Z90.81 Acquired absence of spleen; Z90.710 Acquired absence of both cervix and uterus
CPT/HCPCS: 36415; 93005; 86900; 86901; 80053; 83735; 85025; 86850; 81001; 74022; 74177; 99285; 96374; 96375 ×2; 96361; J1200; J2765; J2405; Q9967